=== PATIENT | male | born 1980 | race African-American/Black ===

== ENCOUNTER 2022-04-04 09:12 | Outpatient (REF) | payer OTHER, SELFPAY ==
[2022-04-04 11:15] LABS: MANUAL DIFF FLAG NO
[2022-04-04 11:21] LABS: Appearance Urine Clear; Color Urine Yellow; Glucose Urine UA Negative (Negative); Leukocyte Esterase Urine Negative (Negative); Nitrite Urine Negative (Negative); Specific Gravity - Urine 1.025 (1.005-1.025); Urine Blood Negative (Negative); Urine Ketones Negative (Negative); Urine Protein Negative (Neg-Trace)
[2022-04-04 11:33] LABS: Basophils Percent Auto 0.5 % (0-2); Eosinophils Absolute Auto 0.7 X10*3/uL (0.0-0.4); Eosinophils Percent Auto 12.8 % (0-4); Hematocrit 41.2 % (42.0-52.0); Hemoglobin 13.4 g/dl (14.0-18.0); Imm Gran Abs Auto 0.02 X10*3/uL (0.00-0.03); Imm Gran Pct Auto 0.3 % (0.0-0.4); Lymphocytes Absolute Auto 1.7 X10*3/uL (1.2-4.9); Lymphocytes Percent Auto 29.2 % (20-40); Mean Corpuscular HGB Conc 32.5 g/dl (31.0-36.0); Mean Corpuscular Hemoglobin 29.2 pg (27.0-33.0); Mean Corpuscular Volume 89.8 fL (80.0-98.0); Monocytes Absolute Auto 0.5 X10*3/uL (0.1-1.2); Monocytes Percent Auto 8.2 % (2-11); Neutrophils Absolute Auto 2.8 x10*3/uL (2.0-8.3); Platelet Count 220 X10*3/uL (160-400); Red Blood Count 4.59 X10*6/uL (4.60-5.80); Red Cell Distribution Width 12.5 % (11.0-16.0); White Blood Count 5.7 X10*3/uL (4.8-10.8)
[2022-04-04 12:26] LABS: Creatinine Urine 158.57 mg/dL; Microalbum/Creatinine Ratio Ur 6.3 ug/mg cr
[2022-04-04 13:05] LABS: Alanine Aminotransferase 15 U/L (0-40); Albumin Level 4.1 g/dL (3.5-5.0); Alkaline Phosphatase 50 U/L (39-117); Anion Gap 6 (12-20); Aspartate Amino Transferase 21 U/L (5-37); Bilirubin Total 0.5 mg/dL (0.0-1.0); Blood Urea Nitrogen 16 mg/dL (9-16); Calcium 9.2 mg/dL (8.4-10.2); Carbon Dioxide 28 mmol/L (22-29); Chloride 111 mmol/L (96-108); Cholesterol 157 mg/dL; Estimated Glomerular Filt Rate > 60; Glucose Fasting 89 mg/dL (60-99); HDL Cholesterol 46 mg/dL; LDL Cholesterol Calculated 96 mg/dl; Sodium 141 mmol/L (135-145); Total Protein 7.1 g/dL (6.5-8.0); Triglycerides 77 mg/dL
[2022-04-04 13:19] LABS: Prostate Specific Antigen Scr 0.53 ng/mL (<0.05-4.0); TSH reflex Free T4 0.51 uIU/mL (0.32-4.0)
== END 2022-04-04 09:13 | disposition home or self-care (01) ==
LOC: HO.WFDLDS 09:12
PROVIDERS: Visit Provider Family Medicine
DX: Z00.00 Encounter for general adult medical examination without abnormal findings (principal); I10 Essential (primary) hypertension; Z12.5 Encounter for screening for malignant neoplasm of prostate
CPT/HCPCS: 36415; 80053; 80061; 81003; 82043; 84153; 84443; 85025

== ENCOUNTER 2022-05-26 11:23 | Outpatient (REF) | payer OTHER, SELFPAY ==
[2022-05-26 14:38] LABS: Influenza A PCR NEGATIVE (Negative); Influenza B PCR NEGATIVE (Negative); Resp Syncy Virus RNA Qual PCR NEGATIVE (Negative); SARS COV2 PCR INHOUSE NEGATIVE (Negative)
== END 2022-05-26 11:24 | disposition home or self-care (01) ==
LOC: HO.LAB 11:23
PROVIDERS: Visit Provider Family Medicine
DX: Z20.822 Contact with and (suspected) exposure to COVID-19 (principal); R07.89 Other chest pain; R09.89 Other specified symptoms and signs involving the circulatory and respiratory systems
CPT/HCPCS: 0241U

== ENCOUNTER 2022-06-26 12:59 | Outpatient (RCR) | payer OTHER, SELFPAY ==
[2022-06-26 13:05] VITALS: BP 105/59; PULSE 71
--- NOTE | 2022-06-26 13:55 | MHC.PT.EP ---
[facility] [place] Office [place] Office [place] Office [address] [phone] F: [phone] F: [phone] F: [phone] F: [phone] Physical Therapy Plan of Care Date of Evaluation: Date of Surgery: NA Diagnosis: Dizziness and giddiness Assessment: Vineet is a 41 year old male who is referred to PT for dizziness and giddiness . He reports of having sudden onset of dizziness this morning when he was standing in the kitchen. This was preceded by URIOSETGUI. He has had 2 episodes of dizziness in the past which resolved spontaneously in 4 days. On PT examination he presents with intact saccades, smooth pursuit, visual tracking, DVA and negative head thrust. He was negative for positional vertigo in B fontana pikes and B roll test. He presented with good static and dynamic balance. 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 He lives with his and is independent with all ADLS but today due to dizziness and his is helping him. He currently does not present with any symptoms of vestibular dysfunction. Dizziness could be due to other source. PT therefore is not indicated at this time. Frequency and Duration: The patient will be seen Short Term Goals: Thermodynamics Professor Goals: Treatment Plan: Modalities to reduce pain, spasms and effusion. Manual therapy to restore motion and function. Therapeutic exercise to improve strength and flexibility. Neuromuscular re-education for posture and balance. Therapeutic activities to return to functional activities of daily living. Electronically signed by: Stephanie Montoya PT DPT Please sign and return to therapist. Thank you for your referral.
--- NOTE | 2022-08-14 08:11 | MHC.PT.DC ---
[facility] [place] Office [place] Office [place] Office [address] Rosa [address] [phone] F: [phone] F: [phone] F: [phone] F: [phone] Physical Therapy Discharge Report Diagnosis: Dizziness and giddiness Date of Surgery: NA Date of Evaluation: 06/26/22 Date of Discharge: 08/14/22 Treatments to Date: 1 Cancellations to Date: 0 No Shows to Date: Discharge Status: Discharge Summary: Vineet presented with no symptoms of vestibular dysfunction in over a month. He is therefore being d/c from PT Electronically signed by: Stephanie Montoya PT DPT Please sign and return to therapist. Thank you for your referral.
== END 2022-08-14 08:11 | disposition home or self-care (01) ==
LOC: HO.PT 12:59
PROVIDERS: PCP Internal Medicine; Visit Provider Internal Medicine
DX: R42 Dizziness and giddiness (principal)
CPT/HCPCS: 97112; 97161

== ENCOUNTER 2022-07-11 15:58 | Outpatient (REF) | payer OTHER, SELFPAY ==
--- NOTE | ~2022-07-11 | US_ITS ---
EXAMINATION: US SCROTUM CLINICAL INFORMATION: Palpable mass in the left hemiscrotum. COMPARISON: None available. TECHNIQUE: A sonogram of the scrotum was performed assessing gan-scale appearance and color Doppler flow. Spectral Doppler analysis of the arterial and venous flow were performed in the testes bilaterally. FINDINGS: RIGHT: Right testicle measures 4.1 x 2.2 x 2.8 cm, volume 14 mL. There is a 2nd right testicle lateral to this that measures 2.2 x 2 x 2.2 cm. No focal testicular parenchymal lesions are visualized. Spectral Doppler analysis of the arterial and venous flow is normal in the right testis. Right epididymal head is normal in size. No right hydrocele or varicocele is seen. Right epididymal Doppler flow is normal. LEFT: Left testicle measures 4.5 x 2.4 x 2.7 cm, volume 15 mL. There is a testicular small cyst measuring 1 x 1 x 2 mm. There are 2 additional smaller testicles laterally measuring 1.1 x 0.9 x 1 cm and superiorly measuring 1.2 x 1.4 x 1.4 cm. No other focal testicular parenchymal lesions are visualized. Spectral Doppler analysis of the arterial and venous flow is normal in the left testis. Left epididymal head is normal in size. No left hydrocele or varicocele is seen. Left epididymal Doppler flow is normal. US/US scrotum IMPRESSION: Polyorchidism, one additional testicle on the right and 2 additional testicles on the left. Small 1 x 2 mm cyst in the largest left testicle.
== END 2022-07-11 15:59 | disposition home or self-care (01) ==
LOC: HO.US 15:58
PROVIDERS: PCP Internal Medicine; Visit Provider Family Medicine
DX: N50.89 Other specified disorders of the male genital organs (principal)
CPT/HCPCS: 76870

== ENCOUNTER → 2022-08-22 13:01 | Outpatient (BNVA) | payer OTHER, SELFPAY | PROVIDERS: PCP Family Medicine; Visit Provider Nurse Practitioner Family | DX: L72.3 Sebaceous cyst (principal) | CPT/HCPCS: 99202 ==

== ENCOUNTER 2022-10-27 09:13 | Day surgery (SDC) | payer OTHER, SELFPAY ==
[2022-10-23 09:29] VITALS: BMI 35.9
--- NOTE | 2022-10-24 09:32 | HO.ANESPROP2 ---
Documented by User: Vane Martin NP 10/24/22 09:32 HPI - Anesthesia Eval Consult details Narrative: 41yo M for Excision Scrotal Sebaceous Cyst (no side,all over) PMFSH Active Problems Active Problems: All Active Problems (Updated 08/22/22 @ 13:53 by ALEX Langston) Scrotal sebaceous cyst (Acute) Scrotal mass (Acute) Asthma exacerbation (Acute) Chest tightness (Acute) Seasonal allergies (Acute) Physical exam, annual (Acute) Ear discomfort (Acute) Low back pain (Acute) Vertigo (Acute) Asthma (Acute) Laboratory exam ordered as part of routine general medical examination (Acute) Past Medical History Medical History Asthma Vertigo Family History Family History Father Heart disease No family history of mental disorder Mother Heart disease Diabetes Hypertension Seizures No family history of mental disorder Surgical History Surgical History (Updated 10/27/22 @ 09:36 by Nadia Craven) History of surgery of head History of testicular surgery Social History Social History Household Members: Spouse and Family Housing: Apartment Alcohol intake: current Alcohol intake frequency: holidays/special occasions only Patient Tobacco Use Status: Never used Tobacco e-Cigarette/Vaping Use: Never Used Use of substances other than those prescribed or required for medical reasons: No Are you DNR?: No Advance Directives: No Advance Directives Information Provided: Yes Current occupational status: employed 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 Meds Allergies Allergy/AdvReac Type Severity Reaction Status Date / Time aspirin Allergy Mild rash, Verified 10/27/22 09:26 swelling Home Medications Medication Instructions Recorded Confirmed Last Taken Type meclizine 25 mg tablet 25 mg PO BID-TID PRN dizziness 10/23/22 10/27/22 Unknown History Exam Exam Date and Time: October 24, 2022 0932 Height,Weight and Vital Signs: Height 5 ft 10 in Weight 113.398 kg Assessment and Plan Assessment Anesthesia Assessment: Chart Reviewed Documented by User: Salazar Younger MD 10/27/22 10:08 [facility] Past Medical History Medical History Asthma Vertigo Family History Family History Father Heart disease No family history of mental disorder Mother Heart disease Diabetes Hypertension Seizures No family history of mental disorder Family history of problems with anesthesia: No Surgical History Surgical History (Updated 10/27/22 @ 09:36 by Nadia Craven) History of surgery of head History of testicular surgery History of Problems with Anesthesia: No Social History Social History Household Members: Spouse and Family Housing: Apartment Alcohol intake: current Alcohol intake frequency: holidays/special occasions only Patient Tobacco Use Status: Never used Tobacco e-Cigarette/Vaping Use: Never Used Use of substances other than those prescribed or required for medical reasons: No Are you DNR?: No Advance Directives: No Advance Directives Information Provided: Yes Current occupational status: employed 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 Meds Allergies Allergy/AdvReac Type Severity Reaction Status Date / Time aspirin Allergy Mild rash, Verified 10/27/22 09:26 swelling Home Medications Medication Instructions Recorded Confirmed Last Taken Type meclizine 25 mg tablet 25 mg PO BID-TID PRN dizziness 10/23/22 10/27/22 Unknown History Exam Airway Mallampati Class: II TM Dist: >3cm Neck ROM: Full Heart: rrr Lungs: cta Assessment and Plan Assessment Anesthesia Assessment: Anesthesia Plan Discussed Final Anesthetic Review Family History of Problems with Anesthesia: No History of Problems with Anesthesia: No NPO: Yes ASA Class: II Final Preanesthetic Review: No Changes in Pt Med Stat, Meds/Allgs Chart Reviewed, Consent Obtained/Reviewed and Anes Risks/Benef Reviewed Patient Risk: Low Procedure Risk: Low Anesthetic Plan Anesthetic Plan: GA Disposition: Standard PACU
[2022-10-27] VITALS (8 sets, daily range): BP systolic 109–124; BP diastolic 75–92; PULSE 53–63; RESP 16; TEMP 36.1–36.8; O2SAT 97–99; BMI 35.2
[2022-10-27] MEDS: Lactated Ringers 1,000 ML 100 ML IVCONT (10:12)
--- NOTE | 2022-10-27 10:56 | MHC.SHP ---
Pre-Procedural Eval Section A Date of Service: 10/27/22 The patient is an INPATIENT: No Changes since office visit: No Cold of Flu in the past 2 weeks, No New Medical Problems, No Changes in Medication and No Patient answered all questions The History & Physical has been completed within 30 days and I have reviewed it.: Yes Section B Chief Complaint: Sebaceous cyst Details of Present Illness: multiple scrotal sebaceous cysts Relevant Family History (Specify if Yes): No Relevant Social History: None Present Medications: None Medical History: No relevant PMH History of Previous Operations: No relevant previous surgery Allergies: Allergies Allergy/AdvReac Type Severity Reaction Status Date / Time aspirin Allergy Mild rash, Verified 10/27/22 09:26 swelling Review of Systems Sugical H&P ROS: Negative: Constitution, Cardiovascular, Respiratory, Neurological, Psychiatric, Hem-Onc, Allergic/Immunologic, Gastrointestinal, Genitourinary, Musculoskeletal, Integumentary, Endocrine and Eyes/Ears/Nose/Throat Exam Surgical H&P Exam: Normal: HEENT, Normal: Heart, Normal: Lungs, Normal: Extremities, Normal: Abdomen, Normal: Skin and Normal: Neurological Plan Diagnosis/Plan: Unchanged ( sharp excision and use of laser to remove multiple scrotal sebaceous cysts) I have reviewed the history and physical and performed a pertinent physical examination on my patient. No changes have occurred unless specified. Time Spent With Patient Time: Total time managing care of this patient today ____ minutes.
[2022-10-27] MEDS: Acetaminophen 325 MG TABLET 975 MG PO (12:44)
--- NOTE | 2022-10-27 14:20 | W.PM.OPN ---
Operative Note Operative Note Date of Service: 10/27/22 Narrative: PreOperative Diagnosis: Multiple scrotal sebaceous cysts Post Operative Diagnosis: multiple scrotal sebaceous cysts Procedure: laser excision of multiple scrotal sebaceous cysts 10 cysts total measuring up to 2 cm Surgeon: Dr Darwin Tan Anesthesia: general Indications for procedure: long-term use of male genital shaving. As result there were a significant number of subcutaneous scrotal sebaceous cysts. Three of these measured approximately 1.5-2 cm in diameter. Seven others were identified is measuring greater than 5 mm. There were numerous small cysts and these were not addressed. Procedure: After informed consent was verified the patient was brought to the operating room and placed in a supine position. Anesthesia was administered per protocol. The patient was prepped and draped in a sterile fashion. Safety pause time-out was performed. Antibiotics being given. Using a CO2 laser the 7 small less than 5 mm sebaceous cysts were erupted. Sebaceous material was removed. The sebaceous cyst sac was inverted and using the CO2 laser was amputated at its base. This was performed on all 7 small cysts measuring 5 mm in size. For the 3 larger cysts we were able to use the CO2 laser to erupt the skin and then widened the skin using a snap before removing all material and then inverting the sac before removing this with the CO2 laser. When complete antiniotic cream was placed on scrotum Pathology: sebaceous cyst sac Drains:
== END 2022-10-27 13:30 | disposition home or self-care (01) ==
PROVIDERS: PCP Internal Medicine; Visit Provider Urology
PROC: (CPT 11421; principal; 2022-10-27 10:50)
DX: L72.3 Sebaceous cyst (principal); L72.0 Epidermal cyst; N50.819 Testicular pain, unspecified; Q55.2 Other and unspecified congenital malformations of testis and scrotum; J45.909 Unspecified asthma, uncomplicated; Z79.51 Long term (current) use of inhaled steroids; Z88.8 Allergy status to other drugs, medicaments and biological substances; Z98.890 Other specified postprocedural states
CPT/HCPCS: 11421 ×2; 11422; 11420 ×7; 88304; J0690; J1885; J2795; J3010

== ENCOUNTER → 2022-10-27 09:13 | Outpatient (BNV) | payer OTHER, SELFPAY | PROVIDERS: PCP Internal Medicine; Visit Provider Urology | DX: L72.3 Sebaceous cyst (principal) | CPT/HCPCS: 17110 ==

== ENCOUNTER 2022-11-21 15:29 | Outpatient (AMB) | payer OTHER, SELFPAY ==
[2022-11-21 15:46] VITALS: BP 102/72; PULSE 64; RESP 12; TEMP 36.4; O2SAT 98; BMI 35.5
--- NOTE | 2022-11-21 15:46 | A.OFFPC_ITS ---
Vital Signs 11/21/22 15:46 Height 5 ft 10 in Weight 247 lb 6 oz BMI 35.5 BP 102/72 Blood Pressure Location Lt brachial Position Sitting Respiration 12 Pulse 64 Pulse Source Pulse Oximeter Temp 97.6 F Temp Source Temporal Artery Scan Pulse Oximetry (%) 98 Oxygen Delivery Method Room Air 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: Right Foot Pain/ Swollen Intake Note: Patient's states that patient woke up with a slight pain, and after patient came home from work it was like he couldnt even walk on it. Patient states that the pain is coming from right big toe. Pain is on the side of the toe, under the toe. 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 Accompanied by: Spouse Allergies aspirin Allergy (Mild, Verified 11/21/22 16:09) rash, swelling Medication List - Last Reconciled 11/21/22 by Roby Cloud CNP albuterol sulfate 90 mcg/actuation 2 puffs inhalation Q6H PRN fluticasone propionate 50 mcg/actuation (Flonase Allergy Relief) 1 spray intranasal Q12H 30 days meclizine 25 mg PO BID-TID PRN Tobacco use date assessed: 07/01/22 Dental Screening Dental Screen Date: 11/21/22 Did you have a dental visit in the last 12 months?: Yes Did you have a dental problem in the last 6 months where you did not have access to dental care?: No Was dental information given to patient?: Patient has dentist HPI HPI Comments History of Present Illness Details 41-year-old male, accompanied by his wif lyn, presents with complaints of pain underneath his right great toe. His symptoms started yesterday morning and have progressively gotten worse. He has been unable to bear weight to the right foot since returning from work yesterday afternoon. He denies fall, injury, or trauma. He notes he took some Tylenol yesterday with minimal relief. He has not taking any pain remedy today. He denies fever, chills, body aches, fatigue, weakness. [facility] Medical History (Updated 11/21/22 @ 16:24 by Roby Cloud CNP) Pain of right great toe Asthma Vertigo Surgical History History of surgery of head History of testicular surgery Family History Father Heart disease No family history of mental disorder Mother Heart disease Diabetes Hypertension Seizures No family history of mental disorder Social History Household Members: Spouse and Family Housing: Apartment Alcohol intake: current Alcohol intake frequency: holidays/special occasions only Patient Tobacco Use Status: Never used Tobacco e-Cigarette/Vaping Use: Never Used Current occupational status: employed 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 Norris Shah, Oksana Ventura, Anand Lakhani and colleagues, with an educational romario from [employer]. Review of Systems Const Details: Const Denies chills, Denies fatigue, Denies fever(s), Denies headache(s) and Denies weakness ENT Denies dizziness and Denies headache(s) Card Denies chest pain, Denies lightheadedness, Denies dyspnea and Denies other (Palpitations) Resp Denies cough, Denies dyspnea, Denies wheezing and Denies other ( shortness of breath) GI Denies abdominal pain, Denies melena, Denies hematochezia, Denies change in bowel habits, Denies dyspepsia and Denies nausea Denies hematuria and Denies dysuria Musc Reports as per HPI Skin/Breast Denies rash, Denies unusual bruising and Denies wounds Neuro Reports abnormal gait, Denies dizziness, Denies headache(s), Denies memory loss, Denies numbness, Denies Sensory deficit (Neuro), Denies tingling and Denies weakness Psych Denies anxiety, Denies depression, Denies memory loss Endo Denies cold intolerance, Denies fatigue, Denies heat intolerance, Denies polydipsia and Denies polyuria Aller/Immun Denies wheezing Physical exam (Primary Care) Vital Signs: Last Vital Signs Temp 97.6 F 11/21/22 15:46 Pulse 64 11/21/22 15:46 Resp 12 11/21/22 15:46 BP 102/72 11/21/22 15:46 Pulse Ox 98 11/21/22 15:46 Oxygen Delivery Method Room Air 11/21/22 15:46 BMI result Body Mass Index 35.5 Tobacco/Smoking Status: Tobacco use Status Tobacco use date assessed 07/01/22 11/21/22 15:56 Patient Tobacco Use Status Never used Tobacco 11/21/22 15:56 e-Cigarette/Vaping Use Never Used 11/21/22 15:56 Thrive Assessment: Date of Thrive Assessment Date Thrive assessed 05/16/22 11/21/22 15:56 Const Other: General: no acute distress and well developed Nutritional Appearance: well nourished Orientation/consciousness: patient oriented x3 HENMT Head: Yes normocephalic and Yes atraumatic Eyes General: appearance normal, both eyes and all related structures Pupils: Equal, round and reactive pupils present EOM: EOMs intact bilaterally Resp Effort & Inspection: normal respiratory effort Auscultation: clear to auscultation bilaterally Cardio Rate: regular rate Rhythm: regular rhythm Heart sounds: S1 normal heart sound present, S2 normal heart sound present, no gallops, no murmurs and no rubs GI Palpation (GI): No Abdominal aortic bruit present, Soft to palpation, nontender, No hepatosplenomegaly present and No Rebound tenderness present Auscultation: normal bowel sounds General: Yes no CVA tenderness Back/Spine/Pelvis Back: no CVA tenderness Cervical Spine: cervical ROM normal and No Cervical spine tenderness Thoracic/Lumbar Spine: thoraco-lumbar ROM normal, No pain with thoraco-lumbar ROM, No thoracic spinal tenderness and No lumbar spinal tenderness Extrem General: Yes normal to inspection, and No calf tenderness Mild erythema and edema noted underneath the right great toe medially, tenderness to palpation, skin is intact Skin General: warm and dry. Normal skin color. Normal skin turgor Lesions: no lesions Rashes: no rashes Trauma: no lacerations or abrasions Wounds: no wounds Nails: normal Neuro General: patient oriented x3, gait unsteady and no focal neuro deficit Cranial nerves: Yes Equal, round and reactive pupils present Cognition (Neuro): normal cognition Gait exam (Neuro): Normal gait present Sensory Exam: No Sensory deficit (Neuro) Psych Appearance: grossly normal Affect: normal affect Attitude: cooperative Thought process: Normal thought process present Assessment and Plan Assessment & Plan (1) Pain of right great toe: Code(s): M79.674 - Pain in right toe(s) Plan: Mild erythema and edema noted underneath the right great toe medially, tenderness to palpation, skin is intact Likely gout, although possible bone spur Prednisone ordered. Take as prescribed Cold compresses encouraged CBC and sed rate ordered to rule out inflammation and infection Uric acid ordered Follow-up with worsening or new symptoms Verbalized understanding and agreed with treatment plan. Orders: Orders Complete Blood Count Auto Diff Today M79.674 - Pain in right toe(s) Erythrocyte Sedimentation Rate Today M79.674 - Pain in right toe(s) Medications: New prednisone 40 mg (2 x 20 mg) PO DAILY 10 tabs 0RF 5 days Coding Level of Care Code Est Pt Level 3 (00958) Diagnoses Pain of right great toe M79.674
== END 2022-11-21 16:23 | disposition home or self-care (01) ==
PROVIDERS: PCP Internal Medicine; Visit Provider Nurse Practitioner Family
DX: M79.674 Pain in right toe(s) (principal)
CPT/HCPCS: 99213

== ENCOUNTER 2022-11-22 08:11 | Outpatient (REF) | payer OTHER, SELFPAY ==
[2022-11-22 11:28] LABS: MANUAL DIFF FLAG NO
[2022-11-22 12:02] LABS: Basophils Percent Auto 0.1 % (0-2); Eosinophils Percent Auto 0.1 % (0-4); Hematocrit 41.3 % (42.0-52.0); Hemoglobin 13.7 g/dl (14.0-18.0); Imm Gran Abs Auto 0.03 X10*3/uL (0.00-0.03); Imm Gran Pct Auto 0.3 % (0.0-0.4); Lymphocytes Absolute Auto 0.9 X10*3/uL (1.2-4.9); Lymphocytes Percent Auto 10.1 % (20-40); Mean Corpuscular HGB Conc 33.2 g/dl (31.0-36.0); Mean Corpuscular Hemoglobin 29.7 pg (27.0-33.0); Mean Corpuscular Volume 89.4 fL (80.0-98.0); Mean Platelet Volume 11.8 fL (9.4-12.4); Monocytes Absolute Auto 0.3 X10*3/uL (0.1-1.2); Monocytes Percent Auto 3.2 % (2-11); Neutrophils Absolute Auto 7.9 x10*3/uL (2.0-8.3); Neutrophils Percent Auto 86.2 % (45-73); Platelet Count 242 X10*3/uL (160-400); Red Blood Count 4.62 X10*6/uL (4.60-5.80); Red Cell Distribution Width 12.5 % (11.0-16.0); White Blood Count 9.1 X10*3/uL (4.8-10.8)
[2022-11-22 12:13] LABS: Erythrocyte Sedimentation Rate 12 MM/HR (0-15)
[2022-11-22 12:18] LABS: Uric Acid 4.5 mg/dL (3.4-7.0)
== END 2022-11-22 08:12 | disposition home or self-care (01) ==
LOC: HO.HMGCLDS 08:11
PROVIDERS: PCP Internal Medicine; Visit Provider Nurse Practitioner Family
DX: M79.674 Pain in right toe(s) (principal)
CPT/HCPCS: 36415; 84550; 85025; 85652

== ENCOUNTER 2022-11-27 13:40 | Outpatient (AMB) | payer OTHER, SELFPAY ==
--- NOTE | 2022-11-27 14:08 | MHC.OFFVIS ---
Intake 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: 4 week (cysts removal) Intake Note: Patient is present for follow up removal multiple sebaceous cysts Urology Medications: none Blood Thinner: none Base Filler Operator Required: Yes Base Filler Operator Name: PACO Accompanied by: Self / Same As Patient Allergies aspirin Allergy (Mild, Verified 11/30/22 12:43) rash, swelling Medication List - Last Reconciled 11/30/22 by ALEX Langston albuterol sulfate 90 mcg/actuation 2 puffs inhalation Q6H PRN fluticasone propionate 50 mcg/actuation (Flonase Allergy Relief) 1 spray intranasal Q12H 30 days meclizine 25 mg PO BID-TID PRN HPI HPI Comments History of Present Illness Details Vineet is a very pleasant 41-year-old [place]-speaking male patient of Dr. Mccord. He has a past medical history of asthma in vertigo. He presents to the office today for follow-up of his recent surgical procedure with Dr. Tan. He is status post multiple scrotal sebaceous cysts removal via C02 laser approximately 2 months ago. When asked he reports to be doing and feeling well. In assessment of the patient today scrotum appears healed with no open areas, drainage, or cyst noted. When asked he reports hurts no postop complications. He denies any urological issues or concerns at this time. When asked he denies urinary urgency, urinary frequency, incontinence, nocturia, hematuria, dysuria, foul smelling urine, changes to urinary stream, flank pain, fever, and or chills. He is happy with his current voiding parameters. [facility] Medical History Pain of right great toe Asthma Vertigo Surgical History History of surgery of head History of testicular surgery Family History Father Heart disease No family history of mental disorder Mother Heart disease Diabetes Hypertension Seizures No family history of mental disorder Social History Household Members: Spouse and Family Housing: Apartment Alcohol intake: current Alcohol intake frequency: holidays/special occasions only Patient Tobacco Use Status: Never used Tobacco e-Cigarette/Vaping Use: Never Used Current occupational status: employed 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 Cognitive needs: No Hearing needs: No Vision needs: No Review of Systems Const All systems reviewed & are unremarkable except as noted in HPI and below Reports no additional complaints Eyes Reports no additional complaints ENT Reports no additional complaints Card Reports no additional complaints Resp Reports no additional complaints GI Reports no additional complaints Reports as per HPI Musc Reports no additional complaints Neuro Reports no additional complaints Psych Reports no additional complaints Endo Reports no additional complaints Aller/Immun Reports as per HPI Physical Exam Const General: cooperative, healthy appearing, comfortable, no acute distress, well developed, alert and awake Orientation/consciousness: patient oriented x3 Limitations: no limitations HEENT Head: Yes normal to inspection, Yes normocephalic and Yes atraumatic Ears: hearing grossly normal bilaterally Eyes General: appearance normal, both eyes and all related structures Neck Neck: Yes normal visual inspection and Yes trachea midline Chest Chest palpation & inspection: normal inspection of the chest Resp Effort & Inspection: normal respiratory effort and able to speak in complete sentences Cardio Rate: regular rate GI Inspection: Yes normal to inspection General: Yes no CVA tenderness Penis: normal penis and uncircumcised Meatus: meatus normal Scrotum: scrotum normal and other Testes: Testes normal Back/Spine/Pelvis Back: no CVA tenderness Skin General skin exam: no rashes or lesions noted Neuro General: patient oriented x3 Extrem General: Yes normal to inspection Psych Appearance: grossly normal and well kempt Mental Status: mental status grossly normal Speech and movement: Normal speech and movement present and Clear speech present Affect: normal affect Attitude: cooperative Thought process: Normal thought process present Thought content: Normal thought content present Insight: Good insight present (Psych) Judgement: Good judgement present (Psych) Results AMB Urinalysis, Automated UA Leukoctes 0 Rosa Maria/uL Last Edit by [employer] on 11/27/22 14:17 UA Nitrite Last Edit by [employer] on 11/27/22 14:17 UA Urobilinogen 0.2 mg/dL Last Edit by [employer] on 11/27/22 14:17 UA Protein 15 mg/dL Last Edit by [employer] on 11/27/22 14:17 UA pH 6.0 Last Edit by [employer] on 11/27/22 14:17 UA Blood 0 Severo/uL Last Edit by Stefanie Christylashell on 11/27/22 14:17 UA Specific Summit 1.030 Last Edit by Stefanie Christylashell on 11/27/22 14:17 UA Ketone Negative Last Edit by Stefanie Anderson on 11/27/22 14:17 UA Bilirubin 0 mg/dL Last Edit by Stefanie Anderson on 11/27/22 14:17 UA Glucose 0 mg/dL Last Edit by Stefanie Anderson on 11/27/22 14:17 Results Reviewed Results Reviewed: Laboratory Last Values Urine pH (Auto) 6.0 11/27/22 14:09 Specific [place] (Auto) 1.030 11/27/22 14:09 Urine Protein (Auto) 15 mg/dL 11/27/22 14:09 Glucose (UA)(Auto) 0 mg/dL 11/27/22 14:09 Urine Ketones (Auto) Negative 11/27/22 14:09 Urine Blood (Auto) 0 Severo/uL 11/27/22 14:09 Urine Bilirubin (Auto) 0 mg/dL 11/27/22 14:09 Urine Urobilinogen (Auto) 0.2 mg/dL 11/27/22 14:09 Leukocyte Esterase (Auto) 0 Rosa Maria/uL 11/27/22 14:09 Assessment & Plan Assessment & Plan (1) Scrotal sebaceous cyst: Code(s): L72.3 - Sebaceous cyst Plan In office urinalysis results reviewed with the patient today; as noted above. Scrotum appears well healed and with no open areas, drainage, or sebaceous cysts noted. Patient denies any urological issues or concerns at this time. He is happy with his current voiding parameters. Follow-up as needed Orders: Orders AMB Urinalysis Automated 11/27/22 Z13.9 - Encounter for screening, unspecified Patient Instructions: The patient had an opportunity to ask questions regarding the treatment plan. All questions were answered. Physical exam, labs, and imaging were discussed and reviewed in detail. As well as risks, benefits, and discussion of treatment choices. No major barriers to understanding were identified. The patient expressed understanding and agreement with the above treatment plan. The patient was made aware they should contact our office by phone for worsening of their current condition, the appearance of new symptoms, or with any questions or concerns. Compliance is encouraged with any medications and follow up testing that is ordered. It is a privilege to be allowed the opportunity to participate in? your urological care.? Again, if you have any questions or concerns If you have any questions or concerns please do not hesitate to contact me. The office is [phone]. This note is constructed using voice recognition software. While every effort has been made to ensure accuracy cinnamon grinder errors may have been included. Yours sincerely, ALEX Langston Coding Level of Care Code Est Pt Level 3 (51807) Diagnoses Scrotal sebaceous cyst L72.3
== END 2022-11-27 14:27 | disposition home or self-care (01) ==
PROVIDERS: PCP Family Medicine; Visit Provider Nurse Practitioner Family
DX: L72.3 Sebaceous cyst (principal)
CPT/HCPCS: 99213

== ENCOUNTER → 2022-11-27 13:40 | Outpatient (BNVA) | payer OTHER, SELFPAY | PROVIDERS: PCP Family Medicine; Visit Provider Nurse Practitioner Family | DX: Z48.89 Encounter for other specified surgical aftercare (principal) | CPT/HCPCS: 81003; 99212 ==

== ENCOUNTER 2022-12-23 08:32 | Outpatient (AMB) | payer OTHER, SELFPAY ==
--- NOTE | 2022-12-23 09:43 | MHC.OFFWIV ---
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 Patient has had a cough and fever shortness of breath x2 days. Denies chest pain nausea vomiting abdominal pain. [facility] Medical History Pain of right great toe Asthma Vertigo Surgical History History of surgery of head History of testicular surgery Family History Father Heart disease No family history of mental disorder Mother Heart disease Diabetes Hypertension Seizures No family history of mental disorder Social History Household Members: Spouse and Family Housing: Apartment Alcohol intake: current Alcohol intake frequency: holidays/special occasions only Patient Tobacco Use Status: Never used Tobacco e-Cigarette/Vaping Use: Never Used Current occupational status: employed 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 Cognitive needs: No Hearing needs: No Vision needs: No Review of Systems Const Reports body aches and Reports fever(s) Card Reports dyspnea Resp Reports cough and Reports dyspnea Physical Exam Vital Signs: Last Vital Signs Temp 98.4 F 12/23/22 09:44 Pulse 76 12/23/22 09:44 BP 112/74 12/23/22 09:44 Pulse Ox 98 12/23/22 09:44 BMI result Body Mass Index 35.9 Const General: healthy appearing, comfortable, no acute distress and alert Orientation/consciousness: patient oriented x3 Limitations: no limitations HEENT Head: Yes normal to inspection Ears: hearing grossly normal bilaterally Resp Effort & Inspection: normal respiratory effort, able to speak in complete sentences, no audible wheezes and Actively coughing Auscultation: clear to auscultation bilaterally Cardio Other: No lower extremity edema Rate: regular rate Skin General skin exam: no rashes or lesions noted Neuro General: patient oriented x3 Extrem General: Yes normal to inspection Assessment & Plan Assessment & Plan (1) Viral illness: Code(s): B34.9 - Viral infection, unspecified Plan VSS on exam patient is alert oriented no acute distress exam was notable for lung sounds clear to auscultation bilaterally. No evidence of tachypnea no lower extremity edema. Cough was present. Given patient's condition considerations pneumonia versus bronchitis or other viral illness. Will Order chest x-ray COVID swab. Xray on my interpretation shows no acute pathology. Likely suffering from viral illness. Discharge instructions, follow up and treatment are discussed with patient in my usual fashion. Alternatives in treatment are also discussed. The patient will return for worsening symptoms or as needed. Advised that any labs/imaging ordered will be followed up on and contact made if further treatment needed. Counseled that patient's condition may require further evaluation and/or treatment. Symptoms of concern for worsening disorder discussed in detail in my customary manner. Patient does verbalize understanding of the plan, there are no apparent barriers to communication. The patient is given the opportunity to ask questions and have them answered to his/her satisfaction Orders: Orders XR chest 2V Today R06.02 - Shortness of breath BinaxNOW Covid-19 Ag Today R50.9 - Fever, unspecified Medications: New prednisone 40 mg (2 x 20 mg) PO DAILY 5 days 10 tabs 0RF Patient Instructions: You were seen and evaluated for your cold-like symptoms. We cannot say for sure at this time examination is reassuring. We believe is likely suffering from a viral URI. Recommend continued symptomatic treatment using saline rinses Tylenol Motrin as needed. You have been prescribed prednisone. You should return to clinic or the emergency department if you experience any new worsening symptoms such as chest pain, shortness of breath, nausea, vomiting, abdominal pain, or any concerning symptoms I mentioned above. Coding Level of Care Code New Pt Level 4 (68997) Diagnoses Viral illness B34.9
[2022-12-23 09:44] VITALS: BP 112/74; PULSE 76; TEMP 36.9; O2SAT 98; BMI 35.9
== END 2022-12-23 11:08 | disposition home or self-care (01) ==
PROVIDERS: PCP Family Medicine; Visit Provider Physician Assistant
DX: B34.9 Viral infection, unspecified (principal)
CPT/HCPCS: 99204

== ENCOUNTER 2022-12-23 10:28 | Outpatient (REF) | payer OTHER, SELFPAY ==
[2022-12-23 11:12] LABS: Binax Now Covid-19 Ag Negative (Negative)
[2022-12-23 11:13] LABS: Binax Internal Control QC Valid; Binax Performed by: HO.BONILM
== END 2022-12-23 10:29 | disposition home or self-care (01) ==
LOC: HO.HMGCX 10:28
PROVIDERS: PCP Family Medicine; Visit Provider Physician Assistant
DX: R06.02 Shortness of breath (principal); R50.9 Fever, unspecified
CPT/HCPCS: 71046; 87811; C9803

== ENCOUNTER 2023-02-17 16:32 | Outpatient (AMB) | payer OTHER, SELFPAY ==
--- NOTE | 2023-02-17 16:34 | MHC.PC.OV ---
Vital Signs 02/17/23 16:35 Height 5 ft 10 in Weight 251 lb BMI 36.0 BP 104/70 Blood Pressure Location Rt brachial Position Sitting Respiration 13 Pulse 67 Pulse Source Pulse Oximeter Temp 97.5 F Temp Source Temporal Artery Scan Pulse Oximetry (%) 99 Oxygen Delivery Method Room Air 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: Right Foot pain Intake Note: Patient has like a crescent shaped skin under his foot that is causing him pain when he walks and a little bit when foot is resting. Patient has been experiencing pain for the past 3 weeks but now it is worse. Patient states that he has not done anything to cause the pain. Gypsum Block Setter Required: Yes Gypsum Block Setter Name: Spouse Accompanied by: Spouse Allergies aspirin Allergy (Mild, Verified 02/17/23 16:45) rash, swelling Medication List - Last Reconciled 02/17/23 by Roby Cloud CNP albuterol sulfate 90 mcg/actuation 2 puffs inhalation Q6H PRN fluticasone propionate 50 mcg/actuation (Flonase Allergy Relief) 1 spray intranasal Q12H 30 days meclizine 25 mg PO BID-TID PRN Tobacco use date assessed: 07/01/22 Dental Screening Dental Screen Date: 02/17/23 Did you have a dental visit in the last 12 months?: Yes Did you have a dental problem in the last 6 months where you did not have access to dental care?: No Was dental information given to patient?: Patient has dentist HPI HPI Comments History of Present Illness Details 42-year-old Indonesian-speaking male, accompanied by his , presents with complaints of intermittent pain to the bottom of his right foot. His symptoms have been ongoing for the past 3 weeks and has progressively worsened. He denies fall, injury, or trauma. 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 [facility] Medical History Pain of right great toe Asthma Vertigo Surgical History History of surgery of head History of testicular surgery Family History Father Heart disease No family history of mental disorder Mother Heart disease Diabetes Hypertension Seizures No family history of mental disorder Social History Household Members: Spouse and Family Housing: Apartment Alcohol intake: current Alcohol intake frequency: holidays/special occasions only Patient Tobacco Use Status: Never used Tobacco e-Cigarette/Vaping Use: Never Used service: No Current occupational status: employed 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 Norris Shah, Oksana Ventura, Anand Lakhani and colleagues, with an educational romario from [employer]. Review of Systems Const Details: Const Denies chills, Denies fatigue, Denies fever(s), Denies headache(s) and Denies weakness ENT Denies dizziness and Denies headache(s) Card Denies chest pain, Denies lightheadedness, Denies dyspnea and Denies other (Palpitations) Resp Denies cough, Denies dyspnea, Denies wheezing and Denies other ( shortness of breath) GI Denies abdominal pain, Denies melena, Denies hematochezia, Denies change in bowel habits, Denies dyspepsia and Denies nausea Denies hematuria and Denies dysuria Musc Denies abnormal gait, Denies myalgias, Denies arthralgias, Denies numbness and Denies tingling Skin/Breast Reports as per HPI Neuro Denies abnormal gait, Denies dizziness, Denies headache(s), Denies memory loss, Denies numbness, Denies Sensory deficit (Neuro), Denies tingling and Denies weakness Psych Denies anxiety, Denies depression, Denies memory loss Endo Denies cold intolerance, Denies fatigue, Denies heat intolerance, Denies polydipsia and Denies polyuria Aller/Immun Denies wheezing Physical exam (Primary Care) Tobacco/Smoking Status: Tobacco use Status Tobacco use date assessed 07/01/22 12/23/22 08:29 Patient Tobacco Use Status Never used Tobacco 12/23/22 09:43 e-Cigarette/Vaping Use Never Used 12/23/22 08:29 Thrive Assessment: Date of Thrive Assessment Date Thrive assessed 05/16/22 12/23/22 08:29 Const Other: General: no acute distress and well developed Nutritional Appearance: well nourished Orientation/consciousness: patient oriented x3 [facility] Head: Yes normocephalic and Yes atraumatic Eyes General: appearance normal, both eyes and all related structures Pupils: Equal, round and reactive pupils present EOM: EOMs intact bilaterally Resp Effort & Inspection: normal respiratory effort Auscultation: clear to auscultation bilaterally Cardio Rate: regular rate Rhythm: regular rhythm Heart sounds: S1 normal heart sound present, S2 normal heart sound present, no gallops, no murmurs and no rubs GI Palpation (GI): No Abdominal aortic bruit present, Soft to palpation, nontender, No hepatosplenomegaly present and No Rebound tenderness present Auscultation: normal bowel sounds General: Yes no CVA tenderness Back/Spine/Pelvis Back: no CVA tenderness Cervical Spine: cervical ROM normal and No Cervical spine tenderness Thoracic/Lumbar Spine: thoraco-lumbar ROM normal, No pain with thoraco-lumbar ROM, No thoracic spinal tenderness and No lumbar spinal tenderness Extrem General: Yes normal to inspection, No edema and No calf tenderness Tenderness with palpation of the plantar aspect of the right foot Skin General: warm and dry. Normal skin color. Normal skin turgor Dry, callus skin to the plantar aspect of the right foot. Intact skin noted. 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 Poor fitted shoes or shoes without enough padding may also be a cause Advised to wear well-fitted shoes with padding Foot soaks with warm soapy water encouraged. Advised to apply moisturizer following foot soaks Naproxen as prescribed Return with worsening or new signs and symptoms Verbalized understanding and agreed with treatment plan Interpretation by the patient's per patient's preference Medications: New naproxen 500 mg PO BID PRN 60 tabs 0RF pain Coding Level of Care Code Est Pt Level 3 (06564) Diagnoses Callus of foot L84
[2023-02-17 16:35] VITALS: BP 104/70; PULSE 67; RESP 13; TEMP 36.4; O2SAT 99; BMI 36.0
== END 2023-02-17 16:58 | disposition home or self-care (01) ==
PROVIDERS: PCP Family Medicine; Visit Provider Nurse Practitioner Family
DX: L84 Corns and callosities (principal)
CPT/HCPCS: 99213

== ENCOUNTER 2023-10-07 08:05 | Outpatient (AMB) | payer OTHER, SELFPAY ==
[2023-10-07 08:30] VITALS: BP 130/78; PULSE 72; TEMP 36.9; O2SAT 98; BMI 36.0
--- NOTE | 2023-10-07 08:30 | MHC.OFFWIV ---
Intake Vital Signs 10/07/23 08:30 Height 5 ft 10 in Weight 251 lb BMI 36.0 BP 130/78 Blood Pressure Location Rt brachial Position Sitting Pulse 72 Pulse Source Pulse Oximeter Temp 98.5 F Temp Source Oral Pulse Oximetry (%) 98 Oxygen Delivery Method Room Air 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: EP Fever, cough, sore throat, body/head ache Intake Note: pt is here for fever, cough, sore throat with headache and bodyache Patient Tobacco Use Status: Never used Tobacco Allergies aspirin Allergy (Mild, Verified 10/07/23 08:30) rash, swelling Do you need a note to return to daycare/school/sports/work: Yes HPI HPI Comments History of Present Illness Details Patient is a 42-year-old male complaining of fever cough sore throat body aches and headaches x 2 days. He states he does have asthma and has been using his inhaler but it does not seem to help his cough. He also states he had a fever yesterday of 102 degrees F which did come down when she took some Tylenol. He states nobody at home is sick. Denies chest pain and ear pain [facility] Medical History Pain of right great toe Asthma Vertigo Surgical History History of surgery of head History of testicular surgery Family History Father Heart disease No family history of mental disorder Mother Heart disease Diabetes Hypertension Seizures No family history of mental disorder Social History Household Members: Spouse and Family Housing: Apartment Alcohol intake: current Alcohol intake frequency: holidays/special occasions only Patient Tobacco Use Status: Never used Tobacco e-Cigarette/Vaping Use: Never Used service: No Current occupational status: employed 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 Cognitive needs: No Hearing needs: No Vision needs: No Review of Systems Const All systems reviewed & are unremarkable except as noted in HPI and below Physical Exam Vital Signs: Last Vital Signs Temp 98.5 F 10/07/23 08:30 Pulse 72 10/07/23 08:30 BP 130/78 10/07/23 08:30 Pulse Ox 98 10/07/23 08:30 Oxygen Delivery Method Room Air 10/07/23 08:30 BMI result Body Mass Index 36.0 Const General: cooperative, healthy appearing, comfortable and no acute distress Orientation/consciousness: patient oriented x3 Limitations: no limitations HEENT Head: Yes normal to inspection Ears: hearing grossly normal bilaterally, external ears normal and TM's normal bilaterally General nose exam: Normal external nose present, Normal nares present and No nasal discharge present Face and sinus: Yes normal facial exam and Yes sinus tenderness Mouth: Normal oral and palatal mucosa present and moist mucous membranes Throat: Yes tonsils normal, Yes uvula midline and Yes posterior oropharynx abnormal (Erythema) Eyes General: appearance normal, both eyes and all related structures Neck Neck: Yes normal visual inspection Resp Effort & Inspection: normal respiratory effort, able to speak in complete sentences, Actively coughing, no respiratory distress, not tachypneic, no tripod positioning and no use of accessory muscles Auscultation: clear to auscultation bilaterally Cardio Rate: regular rate Rhythm: regular rhythm Heart sounds: normal S1 and S2 Skin General skin exam: no rashes or lesions noted Neuro General: patient oriented x3 Extrem General: Yes normal to inspection and Yes no clubbing, cyanosis or edema Assessment & Plan Assessment & Plan (1) Sinusitis: Code(s): J32.9 - Chronic sinusitis, unspecified Qualifiers: Sinusitis location: frontal Chronicity: acute Recurrence: non-recurrent Qualified Code(s): J01.10 - Acute frontal sinusitis, unspecified Plan: VSS, pt well appearing. Educated patient that this is likely viral and he should be using a Neti pot with saline nasal spray or Flonase and other medications to treat his symptoms. I did test for COVID, flu and RSV today. Advised he isolate until we have those results back. Plan see above Orders: Orders SARS-CoV2/FLU/RSV Today J06.9 - Acute upper respiratory infection, unspecified Coding Level of Care Code Est Pt Level 3 (67368) Diagnoses Acute non-recurrent frontal sinusitis J01.10 Sinusitis location: frontal Chronicity: acute Recurrence: non-recurrent
== END 2023-10-07 08:55 | disposition home or self-care (01) ==
PROVIDERS: PCP Family Medicine; Visit Provider Physician Assistant
DX: Z13.9 Encounter for screening, unspecified (principal); J01.10 Acute frontal sinusitis, unspecified
CPT/HCPCS: 87880; 99213

== ENCOUNTER 2023-10-07 08:48 | Outpatient (REF) | payer OTHER, SELFPAY ==
[2023-10-07 12:18] LABS: Influenza A PCR NEGATIVE (Negative); Influenza B PCR NEGATIVE (Negative); Resp Syncy Virus RNA Qual PCR NEGATIVE (Negative); SARS COV2 PCR INHOUSE POSITIVE (Negative)
== END 2023-10-07 08:49 | disposition home or self-care (01) ==
LOC: HO.LAB 08:48
PROVIDERS: Visit Provider Physician Assistant
DX: J06.9 Acute upper respiratory infection, unspecified (principal)
CPT/HCPCS: 0241U

== ENCOUNTER 2023-10-23 15:32 | Outpatient (AMB) | payer OTHER, SELFPAY ==
--- NOTE | 2023-10-23 15:40 | A.OFFVIS_ITS ---
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: Follow up /Scrotal sebaceous cyst Intake Note: Patient is present for follow up follow up Urology Medications: none Blood Thinner: none Packaging Materials Inspector Required: Yes Accompanied by: Unknown Allergies aspirin Allergy (Mild, Verified 10/23/23 16:04) rash, swelling Medication List - Last Reconciled 10/23/23 by ALEX Langston albuterol sulfate 90 mcg/actuation 2 puffs inhalation Q6H PRN fluticasone propionate 50 mcg/actuation (Flonase Allergy Relief) 1 spray intranasal Q12H 30 days HPI Comments Details: Vineet is a very pleasant 42-year-old [place]er-speaking male patient of Dr. Mccord who was accompanied by his significant other at today's office visit. He has a past medical history of asthma and vertigo. He presents to the office today for follow-up. Of note, patient was seen approximately 1 year ago and underwent surgical procedure with Dr. Tan for multiple scrotal sebaceous cysts. In discussion with the patient today he reports no bothersome scrotal issues. He reports following up for his prostate. He denies any bothersome urinary issues or concerns however would like to be sure he is undergoing surveillance monitoring for his prostate. When asked he denies urinary urgency, urinary frequency, incontinence, nocturia, hematuria, dysuria, foul smelling urine, changes to urinary stream, flank pain, fever, and or chills. He is happy with his current voiding parameters. TANNA offered however deferred. In review of patient's chart it appears PSA 04/07 0.5. He is unsure if he has any family history of prostate cancer. He otherwise offers no other issues or concerns at this time. [facility] Medical History Pain of right great toe Asthma Vertigo Surgical History History of surgery of head History of testicular surgery Family History Father Heart disease No family history of mental disorder Mother Heart disease Diabetes Hypertension Seizures No family history of mental disorder Social History Household Members: Spouse and Family Housing: Apartment Alcohol intake: current Alcohol intake frequency: holidays/special occasions only Patient Tobacco Use Status: Never used Tobacco e-Cigarette/Vaping Use: Never Used service: No Current occupational status: employed 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 Cognitive needs: No Hearing needs: No Vision needs: No Review of Systems Const All systems reviewed & are unremarkable except as noted in HPI and below Physical Exam Const General: cooperative, healthy appearing, comfortable, no acute distress, well developed, alert and awake Orientation/consciousness: patient oriented x3 Limitations: no limitations HEENT Head: Yes normal to inspection, Yes normocephalic and Yes atraumatic Ears: hearing grossly normal bilaterally Eyes General: appearance normal, both eyes and all related structures Neck Neck: Yes normal visual inspection and Yes trachea midline Chest Chest palpation & inspection: normal inspection of the chest Resp Effort & Inspection: normal respiratory effort and able to speak in complete sentences Cardio Rate: regular rate GI Inspection: Yes normal to inspection General: Yes no CVA tenderness Penis: normal penis and uncircumcised Meatus: meatus normal Scrotum: scrotum normal and other Testes: Testes normal Back/Spine/Pelvis Back: no CVA tenderness Skin General skin exam: no rashes or lesions noted Neuro General: patient oriented x3 Extrem General: Yes normal to inspection Psych Appearance: grossly normal and well kempt Mental Status: mental status grossly normal Speech and movement: Normal speech and movement present and Clear speech present Affect: normal affect Attitude: cooperative Thought process: Normal thought process present Thought content: Normal thought content present Insight: Good insight present (Psych) Judgement: Good judgement present (Psych) Results AMB Urinalysis, Automated UA Leukoctes 0 Rosa Maria/uL Last Edit by Stefanie Anderson on 10/23/23 16:12 UA Nitrite Negative Last Edit by Stefanie Anderson on 10/23/23 16:12 UA Urobilinogen 0.2 mg/dL Last Edit by [employer]lyn Anderson on 10/23/23 16:12 UA Protein 15 mg/dL Last Edit by Stefanie Anderson on 10/23/23 16:12 UA pH 6.0 Last Edit by Stefanie Anderson on 10/23/23 16:12 UA Blood 25 Severo/uL Last Edit by Stefanie Anderson on 10/23/23 16:12 UA Specific Kaplan 1.025 Last Edit by Stefanie Anderson on 10/23/23 16:12 UA Ketone Positive Last Edit by Stefanie Harrisonlashell on 10/23/23 16:12 UA Bilirubin 0 mg/dL Last Edit by Stefanie Harrisonlashell on 10/23/23 16:12 UA Glucose 0 mg/dL Last Edit by Stefanie Harrisonlashell on 10/23/23 16:12 Results Reviewed Results Reviewed: Laboratory Last Values Urine pH (Auto) 6.0 10/23/23 16:11 Specific Kaplan (Auto) 1.025 10/23/23 16:11 Urine Protein (Auto) 15 mg/dL 10/23/23 16:11 Glucose (UA)(Auto) 0 mg/dL 10/23/23 16:11 Urine Ketones (Auto) Positive 10/23/23 16:11 Urine Blood (Auto) 25 Severo/uL 10/23/23 16:11 Urine Nitrite (Auto) Negative 10/23/23 16:11 Urine Bilirubin (Auto) 0 mg/dL 10/23/23 16:11 Urine Urobilinogen (Auto) 0.2 mg/dL 10/23/23 16:11 Leukocyte Esterase (Auto) 0 Rosa Maria/uL 10/23/23 16:11 Assessment & Plan Assessment & Plan (1) BPH (benign prostatic hyperplasia): Code(s): N40.0 - Benign prostatic hyperplasia without lower urinary tract symptoms Plan In office urinalysis results reviewed with the patient today; as noted above. Patient currently denies any bothersome urinary issues or concerns. Reports be happy with current voiding parameters. TANNA offered however deferred. Will obtain PSA follow-up in 1-3 months with lab to be completed prior; or sooner with any issues, concerns, and or questions. Orders: Orders Prostate Specific Antigen Today N40.0 - Benign prostatic hyperplasia without lower urinary tract symptoms AMB Urinalysis Automated Today Z13.9 - Encounter for screening, unspecified Patient Instructions: The patient had an opportunity to ask questions regarding the treatment plan. All questions were answered. Physical exam, labs, and imaging were discussed and reviewed in detail. As well as risks, benefits, and discussion of treatment choices. No major barriers to understanding were identified. The patient expressed understanding and agreement with the above treatment plan. The patient was made aware they should contact our office by phone for worsening of their current condition, the appearance of new symptoms, or with any questions or concerns. Compliance is encouraged with any medications and follow up testing that is ordered. It is a privilege to be allowed the opportunity to participate in? your urological care.? Again, if you have any questions or concerns If you have any questions or concerns please do not hesitate to contact me. The office is [phone]. This note is constructed using voice recognition software. While every effort has been made to ensure accuracy digital printer operator errors may have been included. Yours sincerely, ALEX Langston Coding Level of Care Code Est Pt Level 3 (49308) Diagnoses BPH (benign prostatic hyperplasia) N40.0
== END 2023-10-23 15:57 | disposition home or self-care (01) ==
PROVIDERS: PCP Family Medicine; Visit Provider Nurse Practitioner Family
DX: Z13.9 Encounter for screening, unspecified (principal); N40.0 Benign prostatic hyperplasia without lower urinary tract symptoms
CPT/HCPCS: 99213

== ENCOUNTER → 2023-10-23 15:32 | Outpatient (BNVA) | payer OTHER, SELFPAY | PROVIDERS: PCP Family Medicine; Visit Provider Nurse Practitioner Family | DX: N40.0 Benign prostatic hyperplasia without lower urinary tract symptoms (principal) | CPT/HCPCS: 81003 ==

== ENCOUNTER 2023-10-31 06:50 | Outpatient (REF) | payer OTHER, SELFPAY ==
[2023-10-31 11:43] LABS: Prostate Specific Antigen 0.54 ng/mL (<0.05-4.0)
== END 2023-10-31 06:51 | disposition home or self-care (01) ==
LOC: HO.HMGCLDS 06:50
PROVIDERS: PCP Family Medicine; Visit Provider Nurse Practitioner Family
DX: Z12.5 Encounter for screening for malignant neoplasm of prostate (principal); N40.0 Benign prostatic hyperplasia without lower urinary tract symptoms
CPT/HCPCS: 36415; 84153

== ENCOUNTER 2023-11-04 15:07 | Outpatient (AMB) | payer SELFPAY ==
--- NOTE | 2023-11-04 15:14 | MHC.PC.OV ---
Vital Signs 11/04/23 15:16 Height 5 ft 10 in Weight 253 lb 2 oz BMI 36.3 BP 100/70 Blood Pressure Location Lt brachial Position Sitting Respiration 16 Pulse 67 Pulse Source Pulse Oximeter Temp 97.8 F Temp Source Tympanic Pulse Oximetry (%) 97 Oxygen Delivery Method Room Air 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: CPE Intake Note: CPE Allergies aspirin Allergy (Mild, Verified 11/04/23 15:14) rash, swelling Medication List - Last Reconciled 11/04/23 by Jesus Mccord MD albuterol sulfate 90 mcg/actuation 2 puffs inhalation Q6H PRN fluticasone propionate 50 mcg/actuation (Flonase Allergy Relief) 1 spray intranasal Q12H 30 days Tobacco use date assessed: 11/04/23 Dental Screening Dental Screen Date: 11/04/23 Did you have a dental visit in the last 12 months?: No Did you have a dental problem in the last 6 months where you did not have access to dental care?: No Was dental information given to patient?: Patient has dentist HPI CPE HPI Details 42 y/o male presents for an extended exam with f/u labs and health maintenance. No recent labs to review. Pt reports concerns about his weight. He is 5'10 253 lbs with a BMI of 36.3. Has complaints of ongoing back pain. He notes he had trialed physical therapy for his back. HPI Comments History of Present Illness Details Documentation assistance for Jesus Mccord MD, was provided by Romain Carrasco, Investment Fund Manager on 11/04/2023 at 3:46 PM EST. I, Dr. Mccord, have read, observed, and verified documentation. [facility] Medical History Pain of right great toe Asthma Vertigo Surgical History History of surgery of head History of testicular surgery Family History Father Heart disease No family history of mental disorder Mother Heart disease Diabetes Hypertension Seizures No family history of mental disorder Social History (Updated 11/04/23 @ 15:15 by Bry Berkowitz) Household Members: Spouse and Family Housing: Apartment Alcohol intake: current Alcohol intake frequency: holidays/special occasions only Patient Tobacco Use Status: Never used Tobacco e-Cigarette/Vaping Use: Never Used service: No Current occupational status: employed 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 1. Little interest or pleasure in doing things: several days 2. Feeling down, depressed, or hopeless: not at all 3. Trouble falling or staying asleep, or sleeping too much: nearly every day 4. Feeling tired or having little energy: several days 5. Poor appetite or overeating: not at all 6. Feeling bad about yourself - or that you are a failure or have let yourself or your family down: not at all 7. Trouble concentrating on things, such as reading the newspaper or watching television: not at all 8. Moving or speaking so slowly that other people could have noticed. Or the opposite - being so fidgety or restless that you have been moving around a lot more than usual: not at all 9. Thoughts that you would be better off or of hurting yourself in some way: not at all Total score: 5 Depression Screening Interpretation: Positive Depression Screening Done: Yes 91519 - PHQ-9 Billing: Yes Source: Developed by Drs. Norris Shah, Oksana Ventura, Anand Lakhani and colleagues, with an educational romario from [employer]. Thrive Questionnaire Date Thrive assessed: 11/04/23 I am a: Patient What is your living situation today?: I have a steady place to live Within the past 12 months, did the food you bought not last and you didn't have the money to get more?: Never true Within the past 12 months, did you worry whether your food would run out before you got money to buy more?: Never true Do you have trouble paying for medicines?: No Do you have trouble getting transportation to medical appointments?: No Do you have trouble paying your heating and electricity bill?: Yes Do you have trouble taking care of your child, family member or friend?: No Do you have trouble with day-to-day activities such as bathing, preparing meals, shopping, managing finances, etc.?: No Are you currently unemployed and looking for a job?: No Are you interested in more education?: No Please select the resources that you would like help with: Utilities Currently or been in a relationship where the following occur: No concerns reported THRIVE Score: 1 AUDIT C Alcohol Use Questionnaire (AUDIT-C) 1. How often do you have a drink containing alcohol?: Monthly or less 2. How many drinks containing alcohol do you have on a typical day when you are drinking?: 1 or 2 3. How often do you have six or more drinks on one occasion?: Less than monthly Total Score: 2 Score Reviewed/Action Taken: Yes REJI-7 AMB Questionnaire REJI-7 Date REJI - 7 assessed: 11/04/23 Source: Developed by Drs. Norris Shah, Oksana Ventura, Anand Lakhani and colleagues, with an educational romario from [employer]. REJI-7 Assessment Billing REJI-7 Assessment Tool: pt declined-do not bill Review of Systems Const Denies chills, Denies fatigue, Denies fever(s), Denies headache(s) and Denies weakness Eyes Denies change in vision ENT Denies dizziness, Denies headache(s), Denies hearing loss, Denies nasal congestion, Denies sinus pain, Denies sinus pressure and Denies sore throat Card Denies chest pain, Denies lightheadedness, Denies dyspnea and Denies other (palpitations) Resp Denies cough, Denies dyspnea and Denies wheezing GI Denies abdominal pain, Denies melena, Denies hematochezia, Denies change in bowel habits, Denies dyspepsia and Denies nausea Denies hematuria and Denies dysuria Musc Denies abnormal gait, Reports back pain, Denies myalgias, Denies arthralgias, Denies numbness and Denies tingling Skin/Breast Denies rash, Denies unusual bruising and Denies wounds Neuro Denies abnormal gait, Denies dizziness, Denies headache(s), Denies memory loss, Denies numbness, Denies Sensory deficit (Neuro), Denies tingling and Denies weakness Psych Denies anxiety, Denies depression and Denies memory loss Endo Denies cold intolerance, Denies fatigue, Denies heat intolerance, Denies polydipsia and Denies polyuria Luca/Lymph Denies easy bleeding and Denies easy bruising Aller/Immun Denies wheezing Physical exam (Primary Care) Vital Signs: Last Vital Signs Temp 97.8 F 11/04/23 15:16 Pulse 67 11/04/23 15:16 Resp 16 11/04/23 15:16 BP 100/70 11/04/23 15:16 Pulse Ox 97 11/04/23 15:16 Oxygen Delivery Method Room Air 11/04/23 15:16 BMI result Body Mass Index 36.3 Tobacco/Smoking Status: Tobacco use Status Tobacco use date assessed 11/04/23 11/04/23 15:24 Patient Tobacco Use Status Never used Tobacco 11/04/23 15:24 e-Cigarette/Vaping Use Never Used 11/04/23 15:24 PHQ-9: PHQ-9 Score PHQ-9: Total score 5 11/04/23 15:27 Depression Screening Interpretation: Positive Thrive Assessment: Date of Thrive Assessment Date Thrive assessed 11/04/23 11/04/23 15:27 Currently or been in a relationship where the following occur: No concerns reported Const General: no acute distress, well developed, alert and awake Nutritional Appearance: well nourished Orientation/consciousness: patient oriented x3 HENMT Head: Yes normocephalic and Yes atraumatic Ears: hearing grossly normal bilaterally and TM's normal bilaterally General nose exam: Normal external nose present and Normal nares present Mouth: Normal oral and palatal mucosa present and moist mucous membranes Teeth and gingiva: dentition normal Throat: Yes posterior oropharynx normal Eyes General: appearance normal, both eyes and all related structures Pupils: Equal, round and reactive pupils present and Pupil accommodation reflex normal EOM: EOMs intact bilaterally Neck Neck: Yes normal visual inspection, Yes no lymphadenopathy and Yes trachea midline Thyroid: Thyroid normal Carotids: no bruits Lymphatic: no lymphadenopathy noted Chest Chest palpation & inspection: normal inspection of the chest Resp Effort & Inspection: normal respiratory effort Auscultation: clear to auscultation bilaterally Cardio Rate: regular rate Rhythm: regular rhythm Heart sounds: S1 normal heart sound present, S2 normal heart sound present, no gallops, no murmurs and no rubs Bruits: no abdominal aortic bruits and no carotid bruits GI Palpation (GI): No Abdominal aortic bruit present, Soft to palpation, nontender, No hepatosplenomegaly present and No Rebound tenderness present Auscultation: normal bowel sounds General: Yes no CVA tenderness Back/Spine/Pelvis Back: no CVA tenderness Cervical Spine: cervical ROM normal and No Cervical spine tenderness Thoracic/Lumbar Spine: thoraco-lumbar ROM normal, No pain with thoraco-lumbar ROM, No thoracic spinal tenderness and No lumbar spinal tenderness Skin Lesions: no lesions Rashes: no rashes Trauma: no lacerations or abrasions Wounds: no wounds Nails: normal Neuro General: patient oriented x3 Cranial nerves: Yes Equal, round and reactive pupils present Cognition (Neuro): normal cognition Gait exam (Neuro): Normal gait present Motor exam (neuro): 5/5 motor strength present throughout Sensory Exam: No Sensory deficit (Neuro) Deep tendon reflexes (DTR's): Right patellar reflex intensity grade: 2+ and Left patellar reflex intensity grade: 2+ Extrem General: Yes normal to inspection and No edema Psych Appearance: grossly normal Affect: normal affect Attitude: cooperative Thought process: Normal thought process present Assessment and Plan Assessment & Plan (1) Physical exam, annual: Code(s): Z00.00 - Encounter for general adult medical examination without abnormal findings Plan: 42-year-old?male?presents?for?complete?physical?exam Exam?within?normal?limits?except?as?described?below. 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 He?has?benefited?from?physical?therapy?in?the?past?but?not?fully?improved. Uses?some?Tylenol I?will?give?him?a?script?for?naproxen I?will?refer?him?to?physiatry?for?further?workup?and?treatment. (4) Screening for prostate cancer: Code(s): Z12.5 - Encounter for screening for malignant neoplasm of prostate Plan: Patient?has?BPH?and?is?followed?by?Urology Follow-up?with?urology?as?recommended Orders: Orders Comprehensive [place]. Panel Fast Today Z00.00 - Encounter for general adult medical examination without abnormal findings Complete Blood Count Auto Diff Today Z00.00 - Encounter for general adult medical examination without abnormal findings Lipid Panel Today Z00.00 - Encounter for general adult medical examination without abnormal findings Microalbumin, Random (w Creat) Today I10 - Essential (primary) hypertension TSH reflex Free T4 Today Z00.00 - Encounter for general adult medical examination without abnormal findings UA and rflx microscopic Today Z00.00 - Encounter for general adult medical examination without abnormal findings Referrals Physiatry Referral M54.50 - Low back pain, unspecified Medications: New naproxen 500 mg PO BID 30 days 60 tabs 2RF Coding Level of Care Code Est Pt Level 4 (71294) Diagnoses Physical exam, annual Z00.00 Obesity E66.9 Low back pain M54.50 Screening for prostate cancer Z12.5
[2023-11-04 15:16] VITALS: BP 100/70; PULSE 67; RESP 16; TEMP 36.6; O2SAT 97; BMI 36.3
== END 2023-11-04 15:49 | disposition home or self-care (01) ==
PROVIDERS: Visit Provider Family Medicine
DX: Z00.00 Encounter for general adult medical examination without abnormal findings (principal); M54.50 Low back pain, unspecified; E66.9 Obesity, unspecified; Z68.33 Body mass index [BMI] 33.0-33.9, adult; Z12.5 Encounter for screening for malignant neoplasm of prostate
CPT/HCPCS: 99214; 99396

== ENCOUNTER 2023-12-14 15:47 | Outpatient (AMB) | payer OTHER, SELFPAY ==
--- NOTE | 2023-12-14 16:10 | A.OFFVIS_ITS ---
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: 2m/PSA(set) Intake Note: Patient presents today for follow up on: psa results PSA: 0.54 Urology Medications: none Blood Thinner: none Accompanied by: Unknown Allergies aspirin Allergy (Mild, Verified 12/14/23 16:38) rash, swelling Medication List - Last Reconciled 12/14/23 by ALEX Langston albuterol sulfate 90 mcg/actuation 2 puffs inhalation Q6H PRN fluticasone propionate 50 mcg/actuation (Flonase Allergy Relief) 1 spray intranasal Q12H 30 days HPI Comments Details: Vineet is a very pleasant 42-year-old Nauruan-speaking male patient of Dr. Mccord who was accompanied by his significant other at today's office visit. He has a past medical history of asthma and vertigo. He presents to the office today for follow-up. Of note, patient was seen approximately 2 months ago at which time a PSA was ordered for surveillance monitoring and these results were reviewed with the patient today. PSA: 04/07 0.5, 11/06 0.5 He currently denies any bothersome urinary issues or concerns. Patient with a previous surgical history with Dr. Tan for multiple scrotal sebaceous cyst and reports no bothersome scrotal issues or concerns. When asked he denies urinary urgency, urinary frequency, incontinence, nocturia, hematuria, dysuria, foul smelling urine, changes to urinary stream, flank pain, fever, and or chills. He is happy with his current voiding parameters. He discusses not knowing his family history and therefore would like to continue with surveillance monitoring. In office urinalysis results reviewed with the patient today. We discussed at length potential causes of microscopic hematuria as well as further workup. He otherwise offers no other issues or concerns at this time. 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 Cognitive needs: No Hearing needs: No Vision needs: No Review of Systems Const All systems reviewed & are unremarkable except as noted in HPI and below Physical Exam Const General: cooperative, healthy appearing, comfortable, no acute distress, well developed, alert and awake Orientation/consciousness: patient oriented x3 Limitations: no limitations HEENT Head: Yes normal to inspection, Yes normocephalic and Yes atraumatic Ears: hearing grossly normal bilaterally Eyes General: appearance normal, both eyes and all related structures Neck Neck: Yes normal visual inspection and Yes trachea midline Chest Chest palpation & inspection: normal inspection of the chest Resp Effort & Inspection: normal respiratory effort and able to speak in complete sentences Cardio Rate: regular rate GI Inspection: Yes normal to inspection General: Yes no CVA tenderness Penis: normal penis and uncircumcised Meatus: meatus normal Scrotum: scrotum normal and other Testes: Testes normal Back/Spine/Pelvis Back: no CVA tenderness Skin General skin exam: no rashes or lesions noted Neuro General: patient oriented x3 Extrem General: Yes normal to inspection Psych Appearance: grossly normal and well kempt Mental Status: mental status grossly normal Speech and movement: Normal speech and movement present and Clear speech present Affect: normal affect Attitude: cooperative Thought process: Normal thought process present Thought content: Normal thought content present Insight: Good insight present (Psych) Judgement: Good judgement present (Psych) Results AMB Urinalysis, Automated UA Leukoctes 0 Rosa Maria/uL Last Edit by Stefanie Anderson on 12/14/23 16:20 UA Nitrite Last Edit by Stefanie Anderson on 12/14/23 16:20 UA Urobilinogen 0.2 mg/dL Last Edit by Stefanie Anderson on 12/14/23 16:20 UA Protein 15 mg/dL Last Edit by Stefanie Anderson on 12/14/23 16:20 UA pH 6.0 Last Edit by Stefanie Anderson on 12/14/23 16:20 UA Blood 25 Severo/uL Last Edit by Stefanie Anderson on 12/14/23 16:20 UA Specific [place] 1.030 Last Edit by Stefanie Anderson on 12/14/23 16:20 UA Ketone Negative Last Edit by Stefanie Anderson on 12/14/23 16:20 UA Bilirubin 0 mg/dL Last Edit by Stefanie Anderson on 12/14/23 16:20 UA Glucose 0 mg/dL Last Edit by Stefanie Anderson on 12/14/23 16:20 Results Reviewed Results Reviewed: Laboratory Last Values Urine pH (Auto) 6.0 12/14/23 16:19 Specific [place] (Auto) 1.030 12/14/23 16:19 Urine Protein (Auto) 15 mg/dL 12/14/23 16:19 Glucose (UA)(Auto) 0 mg/dL 12/14/23 16:19 Urine Ketones (Auto) Negative 12/14/23 16:19 Urine Blood (Auto) 25 Severo/uL 12/14/23 16:19 Urine Bilirubin (Auto) 0 mg/dL 12/14/23 16:19 Urine Urobilinogen (Auto) 0.2 mg/dL 12/14/23 16:19 Leukocyte Esterase (Auto) 0 Rosa Maria/uL 12/14/23 16:19 Assessment & Plan Assessment & Plan (1) Microscopic hematuria: Code(s): R31.29 - Other microscopic hematuria Category: Medical Plan In office urinalysis results reviewed with the patient today; as noted above; will send for urine cytology. Discussed potential causes of microscopic hematuria as well as further workup versus surveillance monitoring; risks and benefits of these interventions were discussed Will continue with surveillance monitoring of microscopic hematuria. Recent PSA results reviewed with the patient today; as noted above. Patient currently denies any bothersome urinary issues or concerns. He reports be happy with current voiding parameters. Follow-up 1 year; or sooner with any issues, concerns, and or questions. Orders: Orders AMB Urinalysis Automated Today Z13.9 - Encounter for screening, unspecified Urine Cytology Today Z13.9 - Encounter for screening, unspecified Patient Instructions: The patient had an opportunity to ask questions regarding the treatment plan. All questions were answered. Physical exam, labs, and imaging were discussed and reviewed in detail. As well as risks, benefits, and discussion of treatment sam marcelino. No major barriers to understanding were identified. The patient expressed understanding and agreement with the above treatment plan. The patient was made aware they should contact our office by phone for worsening of their current condition, the appearance of new symptoms, or with any questions or concerns. Compliance is encouraged with any medications and follow up testing that is ordered. It is a privilege to be allowed the opportunity to participate in? your urological care.? Again, if you have any questions or concerns If you have any questions or concerns please do not hesitate to contact me. The office is [phone]. This note is constructed using voice recognition software. While every effort has been made to ensure accuracy machine erector errors may have been included. Yours sincerely, ALEX Langston Coding Level of Care Code Est Pt Level 3 (18090) Diagnoses Microscopic hematuria R31.29
== END 2023-12-14 16:40 ==
PROVIDERS: PCP Family Medicine; Visit Provider Nurse Practitioner Family
DX: R31.29 Other microscopic hematuria (principal); Z13.9 Encounter for screening, unspecified
CPT/HCPCS: 99213

== ENCOUNTER 2023-12-14 15:47 | Outpatient (REF) | payer OTHER, SELFPAY ==
[2023-12-14 17:10] LABS: Urine Cytology See Pathology rpt
== END 2023-12-14 15:48 | disposition home or self-care (01) ==
LOC: HO.LNP 15:47
PROVIDERS: PCP Family Medicine; Visit Provider Nurse Practitioner Family
DX: R31.29 Other microscopic hematuria (principal)
CPT/HCPCS: 81003; 88112

== ENCOUNTER 2024-01-01 07:26 | Outpatient (REF) | payer OTHER, SELFPAY ==
[2024-01-01 10:47] LABS: Appearance Urine Turbid; Color Urine Yellow; Glucose Urine UA Negative (Negative); Leukocyte Esterase Urine Negative (Negative); Nitrite Urine Negative (Negative); PH 5.5 (5.0-9.0); Specific Gravity - Urine 1.025 (1.005-1.025); Urine Blood Negative (Negative); Urine Ketones Negative (Negative); Urine Protein Negative (Neg-Trace)
[2024-01-01 10:54] LABS: MANUAL DIFF FLAG NO
[2024-01-01 11:02] LABS: Basophils Percent Auto 0.7 % (0-2); Eosinophils Absolute Auto 0.5 X10*3/uL (0.0-0.4); Eosinophils Percent Auto 8.1 % (0-4); Hematocrit 40.8 % (42.0-52.0); Hemoglobin 13.5 g/dl (14.0-18.0); Imm Gran Abs Auto 0.02 X10*3/uL (0.00-0.03); Imm Gran Pct Auto 0.3 % (0.0-0.4); Lymphocytes Absolute Auto 1.7 X10*3/uL (1.2-4.9); Lymphocytes Percent Auto 27.1 % (20-40); Mean Corpuscular HGB Conc 33.1 g/dl (31.0-36.0); Mean Corpuscular Volume 90.7 fL (80.0-98.0); Mean Platelet Volume 11.6 fL (9.4-12.4); Monocytes Absolute Auto 0.5 X10*3/uL (0.1-1.2); Monocytes Percent Auto 8.7 % (2-11); Neutrophils Absolute Auto 3.4 x10*3/uL (2.0-8.3); Neutrophils Percent Auto 55.1 % (45-73); Platelet Count 257 X10*3/uL (160-400); Red Cell Distribution Width 12.7 % (11.0-16.0); White Blood Count 6.1 X10*3/uL (4.8-10.8)
[2024-01-01 11:17] LABS: Creatinine Urine 239.29 mg/dL
[2024-01-01 12:15] LABS: Alanine Aminotransferase 22 U/L (0-40); Alkaline Phosphatase 50 U/L (39-117); Anion Gap 10 (12-20); Aspartate Amino Transferase 25 U/L (5-37); Bilirubin Total 0.7 mg/dL (0.0-1.0); Blood Urea Nitrogen 15 mg/dL (9-16); Calcium 9.2 mg/dL (8.4-10.2); Carbon Dioxide 25 mmol/L (22-29); Chloride 112 mmol/L (96-108); Cholesterol 159 mg/dL (<200); Estimated Glomerular Filt Rate > 60; Glucose Fasting 92 mg/dL (60-99); HDL Cholesterol 48 mg/dL (>40); LDL Cholesterol Calculated 100 mg/dL (<100); Potassium 4.1 mmol/L (3.3-5.1); Sodium 143 mmol/L (135-145); Total Protein 7.3 g/dL (6.5-8.0); Triglycerides 57 mg/dL (<150)
[2024-01-01 12:19] LABS: TSH reflex Free T4 0.61 uIU/mL (0.32-4.0)
== END 2024-01-01 07:27 | disposition home or self-care (01) ==
LOC: HO.HMGCLDS 07:26
PROVIDERS: PCP Family Medicine; Visit Provider Family Medicine
DX: Z00.00 Encounter for general adult medical examination without abnormal findings (principal); I10 Essential (primary) hypertension
CPT/HCPCS: 36415; 80053; 80061; 81003; 82043; 82570; 84443; 85025

== ENCOUNTER 2024-01-13 15:11 | Outpatient (AMB) | payer OTHER, SELFPAY ==
--- NOTE | 2024-01-13 15:20 | MHC.PC.OV ---
Vital Signs 01/13/24 15:25 Height 5 ft 10 in Weight 251 lb 8 oz BMI 36.1 BP 106/64 Blood Pressure Location Rt brachial Position Sitting Respiration 16 Pulse 64 Pulse Source Pulse Oximeter Temp 97.3 F Temp Source Temporal Artery Scan Pulse Oximetry (%) 99 Oxygen Delivery Method Room Air 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: fu labs in person Intake Note: f/u labs Allergies aspirin Allergy (Mild, Verified 01/13/24 15:24) rash, swelling Tobacco use date assessed: 11/04/23 Dental Screening Dental Screen Date: 11/04/23 HPI fu labs in person HPI Details 43 y/o male presents to f/u labs. Labs drawn 01/01/24. Reviewed labs with pt. Mild anemia. Triglycerides 57. TC 159. LDl 100. HDL 48. He reports he has had a hx of mild anemia in the past. [facility] Medical History Pain of right great toe Asthma Vertigo Surgical History History of surgery of head History of testicular surgery Family History Father Heart disease No family history of mental disorder Mother Heart disease Diabetes Hypertension Seizures No family history of mental disorder Social History Household Members: Spouse and Family Housing: Apartment Alcohol intake: current Alcohol intake frequency: holidays/special occasions only Patient Tobacco Use Status: Never used Tobacco e-Cigarette/Vaping Use: Never Used service: No Current occupational status: employed 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 1. Little interest or pleasure in doing things: several days 2. Feeling down, depressed, or hopeless: not at all 3. Trouble falling or staying asleep, or sleeping too much: more than half the days 4. Feeling tired or having little energy: several days 5. Poor appetite or overeating: several days 6. Feeling bad about yourself - or that you are a failure or have let yourself or your family down: not at all 7. Trouble concentrating on things, such as reading the newspaper or watching television: not at all 8. Moving or speaking so slowly that other people could have noticed. Or the opposite - being so fidgety or restless that you have been moving around a lot more than usual: not at all 9. Thoughts that you would be better off or of hurting yourself in some way: not at all Total score: 5 Source: Developed by Drs. Norris Shah, Oksana Ventura, Anand Lakhani and colleagues, with an educational romario from [employer]. Thrive Questionnaire Date Thrive assessed: 11/04/23 I am a: Patient What is your living situation today?: I have a steady place to live Within the past 12 months, did the food you bought not last and you didn't have the money to get more?: Never true Within the past 12 months, did you worry whether your food would run out before you got money to buy more?: Sometimes True Do you have trouble paying for medicines?: No Do you have trouble getting transportation to medical appointments?: No Do you have trouble paying your heating and electricity bill?: I choose not to answer this question Do you have trouble taking care of your child, family member or friend?: No Do you have trouble with day-to-day activities such as bathing, preparing meals, shopping, managing finances, etc.?: No Are you currently unemployed and looking for a job?: No Are you interested in more education?: I choose not to answer this question Please select the resources that you would like help with: Food and Utilities Currently or been in a relationship where the following occur: No concerns reported THRIVE Score: 1 AUDIT C Alcohol Use Questionnaire (AUDIT-C) 1. How often do you have a drink containing alcohol?: Monthly or less 2. How many drinks containing alcohol do you have on a typical day when you are drinking?: 1 or 2 3. How often do you have six or more drinks on one occasion?: Never Total Score: 1 REJI-7 AMB Questionnaire REJI-7 Date REJI - 7 assessed: 11/04/23 Feeling nervous, anxious, or on edge: 0 = Not at all Not being able to stop or control worryin = Several days Worrying too much about different things: 0 = Not at all Trouble relaxin = Not at all Being so restless that it is hard to sit still: 0 = Not at all Becoming easily annoyed or irritable: 1 = Several days Feeling afraid as if something awful might happen: 0 = Not at all Total REJI-7 score (0-4 normal; 5-9 mild; 10-14 moderate; 15-21 severe): 2 Source: Developed by Drs. Norris Shah, Oksana Ventura, Anand Lakhani and colleagues, with an educational romario from [employer]. Review of Systems Const Denies chills, Denies fatigue, Denies fever(s), Denies headache(s) and Denies weakness ENT Denies dizziness and Denies headache(s) Card Denies dyspnea Resp Denies cough, Denies dyspnea, Denies wheezing and Denies other (shortness of breath) Musc Denies numbness and Denies tingling Neuro Denies dizziness, Denies headache(s), Denies numbness, Denies tingling and Denies weakness Psych Denies anxiety and Denies depression Endo Denies fatigue Aller/Immun Denies wheezing Physical exam (Primary Care) Vital Signs: Last Vital Signs Temp 97.3 F 01/13/24 15:25 Pulse 64 01/13/24 15:25 Resp 16 01/13/24 15:25 BP 94/54 L 01/13/24 15:25 Pulse Ox 99 01/13/24 15:25 Oxygen Delivery Method Room Air 01/13/24 15:25 BMI result Body Mass Index 36.1 Tobacco/Smoking Status: Tobacco use Status Tobacco use date assessed 11/04/23 01/13/24 15:21 Patient Tobacco Use Status Never used Tobacco 01/13/24 15:21 e-Cigarette/Vaping Use Never Used 01/13/24 15:21 PHQ-9: PHQ-9 Score PHQ-9: Total score 5 01/13/24 16:15 Thrive Assessment: Date of Thrive Assessment Date Thrive assessed 11/04/23 01/13/24 15:21 Currently or been in a relationship where the following occur: No concerns reported Const General: well developed; No acute distress Nutritional Appearance: well nourished Orientation/consciousness: patient oriented x3 HENMT Head: Yes normocephalic and Yes atraumatic Eyes General: appearance normal, both eyes and all related structures Pupils: Equal, round and reactive pupils present EOM: EOMs intact bilaterally Resp Effort & Inspection: normal respiratory effort Neuro General: patient oriented x3 and gait normal Cranial nerves: Yes Equal, round and reactive pupils present Psych Affect: normal affect Coding Level of Care Code Est Pt Level 3 (00468) Diagnoses Mild anemia D64.9 Assessment & Plan Assessment & Plan (1) Mild anemia: Code(s): D64.9 - Anemia, unspecified Category: Medical Plan: Patient?has?mild?anemia?with?unclear?cause Will?recheck?labs?and?follow-up?at?next?visit Orders: Orders Complete Blood Count Auto Diff Today D64.9 - Anemia, unspecified, Z00.00 - Encounter for general adult medical examination without abnormal findings Basic Metabolic Panel Today D64.9 - Anemia, unspecified, Z00.00 - Encounter for general adult medical examination without abnormal findings IRON PROFILE Today D64.9 - Anemia, unspecified Reticulocyte Count Today D64.9 - Anemia, unspecified Vitamin B12 and Folate Today D64.9 - Anemia, unspecified, E53.8 - Deficiency of other specified B group vitamins Hemoglobin Electrophoresis Today D64.9 - Anemia, unspecified
[2024-01-13 15:25] VITALS: BP 106/64; PULSE 64; RESP 16; TEMP 36.3; O2SAT 99; BMI 36.1
== END 2024-01-13 16:29 | disposition home or self-care (01) ==
LOC: HO.HMCFM 15:12
PROVIDERS: PCP Family Medicine; Visit Provider Family Medicine
DX: D64.9 Anemia, unspecified (principal)

== ENCOUNTER → 2024-01-13 15:11 | Outpatient (BNVA) | payer OTHER, SELFPAY | PROVIDERS: PCP Family Medicine; Visit Provider Family Medicine ==

== ENCOUNTER 2024-01-21 14:51 | Outpatient (AMB) | payer OTHER, SELFPAY ==
--- NOTE | 2024-01-21 15:23 | AM.OFFWIN_ITS ---
Intake Vital Signs 01/21/24 15:28 Height 5 ft 10 in Weight 252 lb 2 oz BMI 36.2 BP 120/80 Blood Pressure Location Rt brachial Position Sitting Pulse 62 Pulse Source Pulse Oximeter Pulse Oximetry (%) 98 Oxygen Delivery Method Room Air 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: EP RT ear pain Patient Tobacco Use Status: Never used Tobacco Allergies aspirin Allergy (Mild, Verified 01/22/24 08:32) rash, swelling PFSH Medical History Pain of right great toe Asthma Vertigo Surgical History History of surgery of head History of testicular surgery Family History Father Heart disease No family history of mental disorder Mother Heart disease Diabetes Hypertension Seizures No family history of mental disorder Social History Household Members: Spouse and Family Housing: Apartment Alcohol intake: current Alcohol intake frequency: holidays/special occasions only Patient Tobacco Use Status: Never used Tobacco e-Cigarette/Vaping Use: Never Used service: No Current occupational status: employed 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
[2024-01-21 15:28] VITALS: BP 120/80; PULSE 62; O2SAT 98; BMI 36.2
--- NOTE | 2024-01-21 15:31 | AM.OFFWIN_ITS ---
Intake Vital Signs 01/21/24 15:28 Height 5 ft 10 in Weight 252 lb 2 oz BMI 36.2 BP 120/80 Blood Pressure Location Rt brachial Position Sitting Pulse 62 Pulse Source Pulse Oximeter Pulse Oximetry (%) 98 Oxygen Delivery Method Room Air 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: EP RT ear pain Intake Note: Patient here for sinus congestion and bilat ear pain Patient Tobacco Use Status: Never used Tobacco Allergies aspirin Allergy (Mild, Verified 01/21/24 15:31) rash, swelling Do you need a note to return to daycare/school/sports/work: No HPI HPI Comments History of Present Illness Details Patient is a 43-year-old male complaining of 2 weeks bilateral ear pain. He tells me 2 weeks ago he had a cough and fevers and head congestion and sinus pain but it all has resolved. He tells me he has has residual ear pain. He denies any shortness of breath or wheezing or trouble hearing. [facility] Medical History Pain of right great toe Asthma Vertigo Surgical History History of surgery of head History of testicular surgery Family History Father Heart disease No family history of mental disorder Mother Heart disease Diabetes Hypertension Seizures No family history of mental disorder Social History Household Members: Spouse and Family Housing: Apartment Alcohol intake: current Alcohol intake frequency: holidays/special occasions only Patient Tobacco Use Status: Never used Tobacco e-Cigarette/Vaping Use: Never Used service: No Current occupational status: employed 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 Cognitive needs: No Hearing needs: No Vision needs: No Review of Systems Const All systems reviewed & are unremarkable except as noted in HPI and below Physical Exam Vital Signs: Last Vital Signs Pulse 62 01/21/24 15:28 BP 120/80 01/21/24 15:28 Pulse Ox 98 01/21/24 15:28 Oxygen Delivery Method Room Air 01/21/24 15:28 BMI result Body Mass Index 36.2 Const General: cooperative, healthy appearing, comfortable and no acute distress Orientation/consciousness: patient oriented x3 HEENT Head: Yes normal to inspection, Yes No palpable skull fracture present and Yes normocephalic Ears: hearing grossly normal bilaterally, external ears normal, TM's normal bilaterally, EAC's normal, mastoids normal (no TTP) bilaterally and Abnormal EAC present (bilateral) erythema, edema and EAC tenderness General nose exam: Normal external nose present Face and sinus: Yes normal facial exam Mouth: Normal oral and palatal mucosa present Teeth and gingiva: dentition normal Throat: Yes posterior oropharynx normal Eyes General: appearance normal, both eyes and all related structures Neck Neck: Yes normal visual inspection, Yes full ROM, Yes no lymphadenopathy, Yes no meningeal signs, Yes trachea midline and Yes supple Resp Effort & Inspection: normal respiratory effort and able to speak in complete sentences Skin General skin exam: no rashes or lesions noted Neuro General: patient oriented x3 and no meningeal signs Assessment & Plan Assessment & Plan (1) Otitis externa: Code(s): H60.90 - Unspecified otitis externa, unspecified ear Qualifiers: Otitis externa type: other infective Chronicity: acute Laterality: bilateral Qualified Code(s): H60.393 - Other infective otitis externa, bilateral Plan: Sent drops to pharmacy Plan See above Medications: New [id number] 3.5-10,000-1 mg/mL-unit/mL-% 4 drps otic (ears) Q8H 7 days 10 mL 0RF Coding Level of Care Code Est Pt Level 3 (16091) Diagnoses Other infective acute otitis externa of both ears H60.393 Otitis externa type: other infective Chronicity: acute Laterality: bilateral
== END 2024-01-21 15:44 | disposition home or self-care (01) ==
PROVIDERS: PCP Family Medicine; Visit Provider Physician Assistant
DX: H60.393 Other infective otitis externa, bilateral (principal)

== ENCOUNTER → 2024-01-21 14:51 | Outpatient (BNVA) | payer OTHER, SELFPAY | PROVIDERS: PCP Family Medicine; Visit Provider Physician Assistant ==

== ENCOUNTER 2024-01-22 08:26 | Outpatient (AMB) | payer OTHER, SELFPAY ==
--- NOTE | 2024-01-22 08:31 | MHC.OFFWIV ---
Intake Vital Signs 01/22/24 08:33 Weight 252 lb BP 124/80 Blood Pressure Location Rt brachial Position Sitting Pulse 70 Pulse Source Pulse Oximeter Pulse Oximetry (%) 98 Oxygen Delivery Method Room Air 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: EP Dizzy, ear pain Intake Note: Patient here for right ear pain and dizziness. Patient Tobacco Use Status: Never used Tobacco Allergies aspirin Allergy (Mild, Verified 01/22/24 08:32) rash, swelling Do you need a note to return to daycare/school/sports/work: No HPI HPI Comments History of Present Illness Details This is a 43-year-old male who presented to the walk-in clinic complaining of vertigo/dizziness. He states he was evaluated at the walk-in clinic yesterday and he was diagnosed with otitis externa and started on ear drops. Patient states he has been using the ear drops as prescribed and his ear pain has slightly improved; however, patient reports a history of vertigo and he woke up this morning feeling dizzy. He describes his dizziness as a room spinning sensation and feels as though he is leaning more to 1 side than the other. He denies any numbness/weakness/paresthesias of his extremities. He denies any visual disturbances, slurred speech, or facial asymmetry. [facility] Medical History Pain of right great toe Asthma Vertigo Surgical History History of surgery of head History of testicular surgery Family History Father Heart disease No family history of mental disorder Mother Heart disease Diabetes Hypertension Seizures No family history of mental disorder Social History Household Members: Spouse and Family Housing: Apartment Alcohol intake: current Alcohol intake frequency: holidays/special occasions only Patient Tobacco Use Status: Never used Tobacco e-Cigarette/Vaping Use: Never Used service: No Current occupational status: employed 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 Cognitive needs: No Hearing needs: No Vision needs: No Review of Systems Const All systems reviewed & are unremarkable except as noted in HPI and below Reports no additional complaints Eyes Reports no additional complaints ENT Reports no additional complaints Card Reports no additional complaints Resp Reports no additional complaints GI Reports no additional complaints Reports no additional complaints Musc Reports no additional complaints Skin/Breast Reports system reviewed and no additional complaints, except as documented Neuro Reports no additional complaints Psych Reports no additional complaints Endo Reports no additional complaints Luca/Lymph Reports no additional complaints Aller/Immun Reports no additional complaints Physical Exam Vital Signs: Last Vital Signs Pulse 70 01/22/24 08:33 BP 124/80 01/22/24 08:33 Pulse Ox 98 01/22/24 08:33 Oxygen Delivery Method Room Air 01/22/24 08:33 Const Other: Vital signs reviewed. Constitutional: Non-toxic appearing. No acute distress. Well-developed and well-nourished. HEENT: Normocephalic and atraumatic. There is erythema, edema, and tenderness of bilateral external auditory canals. Skin: Warm and dry. No rashes or lesions noted. Neck: Full and painless range of motion. No cervical lymphadenopathy. Cardio: Regular rate and rhythm. No murmurs, gallops, or rubs. Pulmonary: No respiratory distress. No accessory muscle usage. Clear to auscultation bilaterally without wheezing, crackles, or rhonchi. Musculoskeletal: Normal range of motion in joints throughout the body. No deformity or other signs of injury. Neuro: Alert and oriented x4. Cranial nerves 2-12 intact. No muscular or sensory deficits elicited on exam. Facial movements are equal and symmetric. Psych: Normal mood and affect. Assessment & Plan Assessment & Plan (1) BPPV (benign paroxysmal positional vertigo): Code(s): H81.10 - Benign paroxysmal vertigo, unspecified ear Qualifiers: Laterality: unspecified laterality Qualified Code(s): H81.10 - Benign paroxysmal vertigo, unspecified ear Plan: This is a 43-year-old male who presented to the walk-in clinic complaining of dizziness/vertigo symptoms beginning this morning in the setting of recent diagnosis of bilateral acute otitis externa. On physical examination, patient is completely neurologically intact without any focal deficits. His dizziness appears to be related to BPPV. Patient was given a prescription for PO meclizine 25 mg 3 times daily as needed for dizziness. Patient was instructed to proceed directly to the emergency room if he were to develop unilateral numbness/weakness/paresthesias, facial asymmetry, slurred speech, or visual disturbances. Patient verbalizes understanding and he is in agreement with the plan. Medications: New meclizine 25 mg PO TID PRN 20 tabs 0RF dizziness Coding Level of Care Code Est Pt Level 3 (79813) Diagnoses Benign paroxysmal positional vertigo, unspecified laterality H81.10 Laterality: unspecified laterality
[2024-01-22 08:33] VITALS: BP 124/80; PULSE 70; O2SAT 98
== END 2024-01-22 08:53 | disposition home or self-care (01) ==
PROVIDERS: PCP Family Medicine; Visit Provider Physician Assistant Medical
DX: H81.10 Benign paroxysmal vertigo, unspecified ear (principal)

== ENCOUNTER → 2024-01-22 08:26 | Outpatient (BNVA) | payer OTHER, SELFPAY | PROVIDERS: PCP Family Medicine; Visit Provider Physician Assistant Medical ==

== ENCOUNTER 2024-02-06 06:33 | Outpatient (REF) | payer OTHER, SELFPAY ==
[2024-02-06 11:03] LABS: MANUAL DIFF FLAG NO
[2024-02-06 11:06] LABS: Basophils Percent Auto 0.5 % (0-2); Eosinophils Absolute Auto 0.5 X10*3/uL (0.0-0.4); Eosinophils Percent Auto 7.8 % (0-4); Hematocrit 40.2 % (42.0-52.0); Imm Gran Abs Auto 0.02 X10*3/uL (0.00-0.03); Imm Gran Pct Auto 0.3 % (0.0-0.4); Immature Retic Fraction 11.7 % (2.3-13.4); Lymphocytes Absolute Auto 1.6 X10*3/uL (1.2-4.9); Lymphocytes Percent Auto 27.3 % (20-40); Mean Corpuscular HGB Conc 32.3 g/dl (31.0-36.0); Mean Corpuscular Hemoglobin 29.5 pg (27.0-33.0); Mean Corpuscular Volume 91.2 fL (80.0-98.0); Mean Platelet Volume 12.2 fL (9.4-12.4); Monocytes Absolute Auto 0.5 X10*3/uL (0.1-1.2); Monocytes Percent Auto 8.8 % (2-11); Neutrophils Absolute Auto 3.3 x10*3/uL (2.0-8.3); Neutrophils Percent Auto 55.3 % (45-73); Platelet Count 221 X10*3/uL (160-400); Red Blood Count 4.41 X10*6/uL (4.60-5.80); Red Cell Distribution Width 12.6 % (11.0-16.0); Retic HGB Equivalent 33.2 pg (30.0-35.0); Reticulocyte Percent 1.3 % (0.5-1.8); Reticulocytes Absolute 0.057 X10*6/uL (0.026-0.095); White Blood Count 5.9 X10*3/uL (4.8-10.8)
[2024-02-06 11:16] LABS: Anion Gap 9 (12-20); Blood Urea Nitrogen 16 mg/dL (9-16); Calcium 9.4 mg/dL (8.4-10.2); Carbon Dioxide 26 mmol/L (22-29); Chloride 110 mmol/L (96-108); Estimated Glomerular Filt Rate > 60; Glucose Random 92 mg/dL (60-115); Iron 60 mcg/dL (45-160); Percent Iron Saturation 23 % (15-50); Potassium 3.9 mmol/L (3.3-5.1); Sodium 141 mmol/L (135-145); Total Iron Binding Capacity 263 mcg/dL (228-428); Unsaturated Iron Binding 203 ug/dL
[2024-02-06 12:12] LABS: Folate 15.7 ng/mL (> or = 4.0); Vitamin B12 512 pg/mL (200-900)
[2024-02-09 08:58] LABS: Hematocrit 40.9 % (38.5-50.0); Hemoglobin 13.3 g/dL (13.2-17.1); MCH 29.6 pg (27.0-33.0); MCV 91.1 fL (80.0-100.0); RBC 4.49 Million/uL (4.20-5.80); RDW 12.5 % (11.0-15.0)
== END 2024-02-06 06:34 | disposition home or self-care (01) ==
LOC: HO.HMGCLDS 06:33
PROVIDERS: PCP Family Medicine; Visit Provider Family Medicine
DX: Z00.00 Encounter for general adult medical examination without abnormal findings (principal); D64.9 Anemia, unspecified; E53.8 Deficiency of other specified B group vitamins
CPT/HCPCS: 36415; 80048; 82607; 82746; 83020; 83540; 85014; 85018; 85025; 85041; 85045

== ENCOUNTER 2024-02-10 10:29 | Outpatient (AMB) | payer OTHER, SELFPAY ==
--- NOTE | 2024-02-10 10:38 | A.OFFPC_ITS ---
Vital Signs 02/10/24 10:40 Height 5 ft 10 in Weight 254 lb BMI 36.4 BP 110/60 Blood Pressure Location Rt brachial Position Sitting Respiration 16 Pulse 63 Pulse Source Pulse Oximeter Temp 97.3 F Temp Source Oral Pulse Oximetry (%) 96 Oxygen Delivery Method Room Air 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: f/u mild anemia, labs Intake Note: f/u labs Allergies aspirin Allergy (Mild, Verified 02/10/24 10:39) rash, swelling Medication List - Last Reconciled 02/10/24 by Jesus Mccord MD albuterol sulfate 90 mcg/actuation 2 puffs inhalation Q6H PRN amoxicillin-pot clavulanate 500-125 mg (Augmentin) 1 tab PO Q12H 10 days carbamide peroxide 6.5% (Debrox) 5 drps otic (ears) DAILY 4 days fluticasone propionate 50 mcg/actuation (Flonase Allergy Relief) 1 spray intranasal Q12H 30 days meclizine 25 mg PO TID PRN Tobacco use date assessed: 11/04/23 Dental Screening Dental Screen Date: 11/04/23 HPI f/u mild anemia, labs HPI Details 43 y/o male presents to f/u mild anemia, labs. Labs drawn 02/06/24. Reviewed labs with pt. Ongoing mild anemia. Iron levels are fine B12 levels are fine. Reports ongoing ear discomfort x1 month. [facility] Medical History (Reviewed 12/14/23 @ 16:50 by CORNELIA LangstonMARY [facility]) Pain of right great toe Asthma Vertigo Surgical History History of surgery of head History of testicular surgery Family History Father Heart disease No family history of mental disorder Mother Heart disease Diabetes Hypertension Seizures No family history of mental disorder Social History Household Members: Spouse and Family Housing: Apartment Alcohol intake: current Alcohol intake frequency: holidays/special occasions only Patient Tobacco Use Status: Never used Tobacco e-Cigarette/Vaping Use: Never Used service: No Current occupational status: employed 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 Cognitive needs: No Hearing needs: No Vision needs: No Questionnaire Thrive Questionnaire Date Thrive assessed: 01/13/24 I am a: Patient What is your living situation today?: I have a steady place to live Within the past 12 months, did the food you bought not last and you didn't have the money to get more?: Never true Within the past 12 months, did you worry whether your food would run out before you got money to buy more?: Sometimes True Do you have trouble paying for medicines?: No Do you have trouble getting transportation to medical appointments?: No Do you have trouble paying your heating and electricity bill?: I choose not to answer this question Do you have trouble taking care of your child, family member or friend?: No Do you have trouble with day-to-day activities such as bathing, preparing meals, shopping, managing finances, etc.?: No Are you currently unemployed and looking for a job?: No Are you interested in more education?: I choose not to answer this question Currently or been in a relationship where the following occur: No concerns reported THRIVE Score: 1 REJI-7 AMB Questionnaire REJI-7 Date REJI - 7 assessed: 11/04/23 Source: Developed by Drs. Norris Shah, Oksana Ventura, Anand Lakhani and colleagues, with an educational romario from [employer]. Physical exam (Primary Care) Vital Signs: Last Vital Signs Temp 97.3 F 02/10/24 10:40 Pulse 63 02/10/24 10:40 Resp 16 02/10/24 10:40 BP 110/60 02/10/24 10:40 Pulse Ox 96 02/10/24 10:40 Oxygen Delivery Method Room Air 02/10/24 10:40 BMI result Body Mass Index 36.4 Tobacco/Smoking Status: Tobacco use Status Tobacco use date assessed 11/04/23 02/10/24 10:43 Patient Tobacco Use Status Never used Tobacco 02/10/24 10:43 e-Cigarette/Vaping Use Never Used 02/10/24 10:43 Thrive Assessment: Date of Thrive Assessment Date Thrive assessed 01/13/24 02/10/24 10:43 Currently or been in a relationship where the following occur: No concerns reported Coding Level of Care Code Est Pt Level 3 (97486) Diagnoses Mild anemia D64.9 Other infective acute otitis externa of both ears H60.393 Chronicity: acute Laterality: bilateral Otitis externa type: other infective Assessment & Plan Assessment & Plan (1) Mild anemia: Code(s): D64.9 - Anemia, unspecified Category: Medical Plan: Persistent?mild?normocytic?anemia. Other?cell?lines?are?normal. Unclear?cause?though?he?has?had?some?microscopic hematuria?past.??Doubt?this?would?be?the?primary?underlying?cause. Will?recheck?again?few?months.??If?still?low?lower,?hematology. (2) Otitis externa: Code(s): H60.90 - Unspecified otitis externa, unspecified ear Category: Medical Qualifiers: Chronicity: acute Laterality: bilateral Otitis externa type: other infective Qualified Code(s): H60.393 - Other infective otitis externa, bilateral Plan: Patient?still?has?ongoing?ear?discomfort.??Has?had?some?vertigo?has?also Has?bilateral?TM?erythema?without?bulging?pus.??Also?mild?wax?impaction?left He?has?given?antibiotic?ear?drops?for?otitis?externa?in?the?recent?past?and?was? also?given?meclizine?for?some?vertigo.??No?longer?has?vertigo May?have?smoldering?otitis?media?or?sinus?infection.??Giving?him?script?for?Augm entin. He?can?also?use?some?Debrox?drops?for?wax?impaction. Orders: Orders Complete Blood Count Auto Diff Today D64.9 - Anemia, unspecified, Z00.00 - Encounter for general adult medical examination without abnormal findings Comprehensive Met. Panel Today D64.9 - Anemia, unspecified IRON PROFILE Today D64.9 - Anemia, unspecified Ferritin Today D64.9 - Anemia, unspecified UA and rflx microscopic Today D64.9 - Anemia, unspecified, Z00.00 - Encounter for general adult medical examination without abnormal findings Medications: New amoxicillin-pot clavulanate 500-125 mg (Augmentin) 1 tab PO Q12H 10 days 20 tabs 0RF carbamide peroxide 6.5% (Debrox) 5 drps otic (ears) DAILY 4 days 15 mL 1RF
[2024-02-10 10:40] VITALS: BP 110/60; PULSE 63; RESP 16; TEMP 36.3; O2SAT 96; BMI 36.4
== END 2024-02-10 11:05 | disposition home or self-care (01) ==
PROVIDERS: PCP Family Medicine; Visit Provider Family Medicine
DX: D64.9 Anemia, unspecified (principal); H60.393 Other infective otitis externa, bilateral

== ENCOUNTER 2024-04-30 07:01 | Outpatient (REF) | payer OTHER, SELFPAY ==
--- OUTSIDE RECORDS SUMMARY | 2024-04-30 07:04 | XMS_ITS | Clinical Summary ---
Author Organization [facility] Address [address] [place] [address] Phone Care Team Providers Care Inspector Semiconductor Wafer Name Role Phone Physician, Pcp Unknown Primary Care Provider Naz vailable Allergies Active Allergy Reactions Criticality Noted Date Comments Aspirin Anaphylaxis High 02/11/2022 Encounters Date Type Department Care Team Description 03/10/2024 5:28 PM EST - 03/10/2024 11:50 PM EST Emergency [facility] Emergency [address] [place] [address] Discharge Disposition: Home or Self Care from Last 3 Months Social History Tobacco Use Types Packs/Day Years Used Date Smoking Tobacco: Never Assessed Sex and Gender Information Value Date Recorded Sex Assigned at Not on file Legal Sex Male 1:55 AM EST Gender Identity Not on file Sexual Orientation Not on file Obstetrics History Last Filed Vital Signs Vital Sign Reading Time Taken Comments Blood Pressure 107/79 03/10/2024 3:20 PM EST Pulse 65 03/10/2024 3:20 PM EST Temperature 37.4 ??C (99.3 ??F) 03/10/2024 3:20 PM ES T Respiratory Rate 16 03/10/2024 3:20 PM EST Oxygen Saturation 100% 03/10/2024 3:20 PM EST Inhaled Oxygen Concentration - - Weight 113 kg (250 lb) 03/10/2024 3:20 PM EST Height 177.8 cm (5' 10 ) 03/10/2024 3:20 PM EST Body Mass Index 35.87 03/10/2024 3:20 PM EST Plan of Treatment Health Maintenance Due Date Last Done Comments Hepatitis B Vaccines (1 of 3 - 19+ 3-dose series) 01/01/2000 Pneumococcal Vaccine: Pediatrics (0 to 5 Years) and At-Risk Patients (6 to 64 Years) (2 of 2 - PCV) 07/21/2018 07/21/2017 Cholesterol Screening (Lipid Panel) 02/16/2022 Depression Screening 02/16/2022 HIV Screening 02/16/2022 Hepatitis C Screening 02/16/2022 Social Influencers of Health Screening 02/16/2022 DTaP,Tdap,and Td Vaccines (2 - Td or Tdap) 02/17/2022 02/18/2012 COVID-19 Vaccine (3 - 2023-2 5 season) 2023 11/26/2020, 07/09/2020 Influenza Vaccine (#1) 2023 02/18/2012 HIB Vaccines Aged Out No longer eligi ble based on patient's age to complete this topic HPV Vaccines Aged Out No longer eligi ble based on patient's age to complete this topic Hepatitis A Vaccines Aged Out No long er eligible based on patient's age to complete this topic IPV Vaccines Aged Out No longer eligi ble based on patient's age to complete this topic MMR Vaccines Aged Out No longer eligi ble based on patient's age to complete this topic Meningococcal ACWY Vaccine Aged Out N o longer eligible based on patient's age to complete this topic Meningococcal B Vacine Aged Out No lo nger eligible based on patient's age to complete this topic RSV Immunization Patients Under 20 months Aged Out No longer eligible b ased on patient's age to complete this topic Varicella Vaccines Aged Out No longer eligible based on patient's age to complete this topic Procedures Procedure Name Priority Date/Time Associated Diagnosis Comments RESPIRATORY VIRUS PANEL MOLECULAR STUDY STAT 03/10/2024 3:24 PM EST from Last 3 Months Results * (ABNORMAL) Respiratory virus panel molecular study (03/10/2024 3:24 PM EST) Pathologist [facility] Adenovirus Detection by PCR Not Detected Not Detected LAB MICROBIOLOGY METHOD 03/10/2024 4:53 PM EST [facility] Influenza B PCR Not Detected Not Detected LAB MICROBIOLOGY METHOD 03/10/2024 4:53 PM EST [facility] Coronavirus 229E Not Detected Not Detected LAB MICROBIOLOGY METHOD 03/10/2024 4:53 PM [facility] Coronavirus HKU1 Not Detected Not Detected LAB MICROBIOLOGY METHOD 03/10/2024 4:53 PM [facility] Coronavirus OC43 Not Detected Not Detected LAB MICROBIOLOGY METHOD 03/10/2024 4:53 PM [facility] Coronavirus NL63 Not Detected Not Detected LAB MICROBIOLOGY METHOD 03/10/2024 4:53 PM [facility] Parainfluenza Virus 1 Not Detected Not Detected LAB MICROBIOLOGY METHOD 03/10/2024 4:53 PM [facility] Parainfluenza Virus 2 Not Detected Not Detected LAB MICROBIOLOGY METHOD 03/10/2024 4:53 PM [facility] Parainfluenza Virus 3 Not Detected Not Detected LAB MICROBIOLOGY METHOD 03/10/2024 4:53 PM [facility] Parainfluenza Virus 4 Not Detected Not Detected LAB MICROBIOLOGY METHOD 03/10/2024 4:53 PM [facility] RSV PCR Not Detected Not Detected LAB MICROBIOLOGY METHOD 03/10/2024 4:53 PM [facility] Human Metapneumovirus A and B Not Detected Not Detected LAB MICROBIOLOGY METHOD 03/10/2024 4:53 PM [facility] Rhinovirus/Entero virus Detected(A ) Not Detected LAB MICROBIOLOGY METHOD 03/10/2024 4:53 PM [facility] Bordetella pertussis Not Detected Not Detected LAB MICROBIOLOGY METHOD 03/10/2024 4:53 PM [facility] Bordetella parapertussis Not Detected Not Detected LAB MICROBIOLOGY METHOD 03/10/2024 4:53 PM [facility] Influenza A H1N1 PDM09 Detected(A ) Not Detected LAB MICROBIOLOGY METHOD 03/10/2024 4:53 PM [facility] Mycoplasma pneumo by PCR Not Detected Not Detected LAB MICROBIOLOGY METHOD 03/10/2024 4:53 PM [facility] Chlamydia pneumoniae Not Detected Not Detected LAB MICROBIOLOGY METHOD 03/10/2024 4:53 PM EST [facility] SARS COV-2 Not Detected Not Detected LAB MICROBIOLOGY METHOD 03/10/2024 4:53 PM EST [facility] Swab Both anterior nares / Unknown Non-blood Collection / Unknown 03/10/2024 3:24 PM EST 03/10/2024 3:59 PM EST Narrative [facility] - 03/10/2024 4:53 PM EST Testing was performed using the [employer] Respiratory Pathogen PCR Assay. All results must be correlated with the clinical findings. Results should not be used as the sole basis for diagnosis. False Negative results may occur from the presence of sequence variants in the region targeted by the assay or the presence of inhibitors. Results may be affected by concurrent antiviral/antimicrobial therapy or levels of organisms that are below the limit of detection. Marky Montana MD LAB MICROBIOLOGY - GENERAL MARLEY CHANG Final Result [facility] [address] [place] [address], from Last 3 Months Insurance [facility] [employer] Care Teams Inspector Semiconductor Wafer Relationship Specialty Start Date End Date Physician, Pcp Unknown PCP - General 03/10/24
--- OUTSIDE RECORDS SUMMARY | 2024-04-30 07:04 | XMS_ITS | Clinical Summary ---
Author Organization [facility] Address [address] [place] [address] Care Team Providers Care Placement Coordinator Name Role Phone Unavailable Primary Care Provider Unavailabl e Allergies Active Allergy Reactions Criticality Noted Date Comments Aspirin 10/02/2017 Medications No known medications Active Problems No known active problems Social History Tobacco Use Types Packs/Day Years Used Date Smoking Tobacco: Never Smokeless Tobacco: Never Sex and Gender Information Value Date Recorded Sex Assigned at Not on file Legal Sex Male 11:34 AM EDT Gender Identity Not on file Sexual Orientation Not on file Last Filed Vital Signs Vital Sign Reading Time Taken Comments Blood Pressure 105/70 10/02/2017 11:43 AM EDT Pulse 60 10/02/2017 11:43 AM EDT Temperature 36.7 ??C (98.1 ??F) 10/02/2017 11:43 AM E DT Respiratory Rate 17 10/02/2017 11:43 AM EDT Oxygen Saturation - - Inhaled Oxygen Concentration - - Weight - - Height - - Body Mass Index - - Plan of Treatment Health Maintenance Due Date Last Done Comments Hepatitis C Screening 1980 DTaP/Tdap/Td (1 - Tdap) 1998 Hep B (1 of 3 - 19+ 3-dose series) 01/01/2000 COVID-19 Vaccine ( - 2023-2 5 season) 2023 Influenza (#1) 2023 Zoster (Shingrix) (1 of 2) 2030 HPV Vaccine Aged Out No longer eligi ble based on patient's age to complete this topic Hep A Aged Out No longer eligi ble based on patient's age to complete this topic Hib Aged Out No longer eligi ble based on patient's age to complete this topic Meningococcal ACWY Aged Out No longer eligible based on patient's age to complete this topic Pneumococcal Aged Out No longer eligi ble based on patient's age to complete this topic Insurance * Guarantor: [id number] [employer]AFF[employer] Account Type Relation to Patient Date of Phone Billing Address [employer] [address] [place] [id number] [employer] . [address] [place] [id number]
--- OUTSIDE RECORDS SUMMARY | 2024-04-30 07:04 | XMS_ITS | Encounter Summary ---
Author Organization [facility] Address [address] [place] [address] Care Team Providers Care Heavy Mobile Equipment Repairer Name Role Phone Unavailable Primary Care Provider Unavailabl e Encounter Details Date Type Department Care Team (Late st Contact Info) Description 08/04/2019 Lab Requisition [facility] [address] [place] [address] Cornel Snow MD [address] [place] [address] Encounter for screening for other viral diseases Social History Tobacco Use Types Packs/Day Years Used Date Smoking Tobacco: Never Assessed Sex and Gender Information Value Date Recorded Sex Assigned at Not on file Legal Sex Male 7:13 PM EDT Gender Identity Not on file Sexual Orientation Not on file documented as of this encounter Plan of Treatment Not on file documented as of this encounter Procedures Procedure Name Priority Date/Time Associated Diagnosis Comments SARS COV-2 (COVID-19) RNA-[facility] ([facility]) Routine 08/04/2019 7:14 PM EDT Encounter for screening for other viral diseases documented in this encounter Results * SARS CoV-2 (COVID-19) PCR - [facility] ([facility]) (08/04/2019 7:14 PM EDT) SARS-CoV-2 RNA (COVID-19) Not Detected Not Detected 08/05/2019 6:53 PM EDT [facility] Comment: Negative results do not preclude COVID-19 and should not be the sole basis for patient management decisions. Clinical disease and risk factors should also be considered. This real-time RT-PCR assay was developed by [employer] and targets three regions of the SARS-CoV-2 genome: orf1ab, spike (S) gene, nucleocapsid (N) gene. It has been validated for clinical use by the [facility]. TaqPath? ? COVID-19 Combo Kit is for use only under Emergency Use Authorization (EUA). Testing is limited to laboratories certified under the Clinical Laboratory Improvement Amendments of 1988 (CLIA), 42 U.S.C. ??263a, to perform high complexity tests. Note that falsely negative results can be due to poor sample quality, suboptimal sample type, low viral load, and viral genome variability. Fact Sheet for Healthcare Providers: https://www.fda.gov/media/225804/download Fact Sheet for Patients: https://www.fda.gov/media/558110/download Test performance has not been evaluated in asymptomatic patients. Test ordering and result interpretation is at the discretion of the ordering provider. Viral NASOPHARYNGEAL STRUCTURE / Unknown 08/04/2019 7:14 PM EDT 08/04/2019 7:14 PM EDT Cornel Snow MD MICROBIOLOGY - GENERAL OR DERABLES Final Result [facility] [address] [place] [address], [facility] [phone] documented in this encounter Visit Diagnoses Diagnosis Encounter for screening for other viral diseases documented in this encounter Additional Health Concerns Infection Onset Date Last Indicated Resolved Time R/O COVID-19 08/04/2019 08/04/2019 08/05/2019 6:53 PM EDT documented as of this encounter
--- OUTSIDE RECORDS SUMMARY | 2024-04-30 07:04 | XMS_ITS | Clinical Summary ---
Author Organization [address] Address [address] [place] [id number] Care Team Providers Care Polishing Machine Operator Helper Name Role Phone Unavailable Primary Care Provider Unavailabl e Social History Tobacco Use Types Packs/Day Years Used Date Smoking Tobacco: Never Assessed Sex and Gender Information Value Date Recorded Sex Assigned at Not on file Legal Sex Male 7:13 PM EDT Gender Identity Not on file Sexual Orientation Not on file Plan of Treatment Health Maintenance Due Date Last Done Comments HIV screening 1993 Hepatitis C screening 1998 Tetanus adult (Td q 10,TDAP once) 2000 Lipid disorder screening 2020 Influenza vaccine 10/15/2023 Covid-19 vaccine series ( - 2023-25 season) 2023 RSV Discussion (1 - 1-dose 7 5+ series) 01/01/2056 Meningococcal Vaccine Aged Out No juan maximino eligible based on patient's age to complete this topic Pneumococcal Vaccine (2 - 49 years) Aged Out No longer eligible based on patient's age to complete this topic
[2024-04-30 11:20] LABS: MANUAL DIFF FLAG NO
[2024-04-30 11:27] LABS: Basophils Percent Auto 0.6 % (0-2); Eosinophils Absolute Auto 0.6 X10*3/uL (0.0-0.4); Eosinophils Percent Auto 9.4 % (0-4); Hematocrit 41.3 % (42.0-52.0); Hemoglobin 13.4 g/dl (14.0-18.0); Imm Gran Abs Auto 0.03 X10*3/uL (0.00-0.03); Imm Gran Pct Auto 0.5 % (0.0-0.4); Lymphocytes Absolute Auto 1.8 X10*3/uL (1.2-4.9); Lymphocytes Percent Auto 28.7 % (20-40); Mean Corpuscular HGB Conc 32.4 g/dl (31.0-36.0); Mean Corpuscular Hemoglobin 29.3 pg (27.0-33.0); Mean Corpuscular Volume 90.2 fL (80.0-98.0); Mean Platelet Volume 12.1 fL (9.4-12.4); Monocytes Absolute Auto 0.5 X10*3/uL (0.1-1.2); Monocytes Percent Auto 8.3 % (2-11); Neutrophils Absolute Auto 3.3 x10*3/uL (2.0-8.3); Neutrophils Percent Auto 52.5 % (45-73); Platelet Count 223 X10*3/uL (160-400); Red Blood Count 4.58 X10*6/uL (4.60-5.80); White Blood Count 6.4 X10*3/uL (4.8-10.8)
[2024-04-30 11:40] LABS: Appearance Urine Clear; Color Urine Yellow; Glucose Urine UA Negative (Negative); Leukocyte Esterase Urine Negative (Negative); Nitrite Urine Negative (Negative); PH 5.5 (5.0-9.0); Specific Gravity - Urine >= 1.030 (1.005-1.025); UMIC TRIGGER UA YES; Urine Blood Trace (Negative); Urine Ketones Negative (Negative); Urine Protein Negative (Neg-Trace)
[2024-04-30 11:47] LABS: Alanine Aminotransferase 25 U/L (0-40); Albumin Level 4.1 g/dL (3.5-5.0); Alkaline Phosphatase 50 U/L (39-117); Anion Gap 10 (12-20); Aspartate Amino Transferase 31 U/L (5-37); Bacteria Urine None Seen (None Seen); Bilirubin Total 0.5 mg/dL (0.0-1.0); Blood Urea Nitrogen 17 mg/dL (9-16); Calcium 9.1 mg/dL (8.4-10.2); Carbon Dioxide 23 mmol/L (22-29); Chloride 113 mmol/L (96-108); Estimated Glomerular Filt Rate > 60; Glucose Random 84 mg/dL (60-115); Hyaline Casts Urine 0-2 /LPF (0-2); Iron 62 mcg/dL (45-160); Percent Iron Saturation 23 % (15-50); Potassium 4.1 mmol/L (3.3-5.1); RBC Urine 0-2 /HPF (0-2); Sodium 142 mmol/L (135-145); Squamous Epithelial Cell Urine 0-2 /HPF (0-2); Total Iron Binding Capacity 267 mcg/dL (228-428); Total Protein 7.7 g/dL (6.5-8.0); Unsaturated Iron Binding 205 ug/dL; WBC Urine 0-5 /HPF (0-5)
[2024-04-30 12:04] LABS: Ferritin 326 ng/mL (20-250)
== END 2024-04-30 07:02 | disposition home or self-care (01) ==
LOC: HO.HMGCLDS 07:01
PROVIDERS: PCP Family Medicine; Visit Provider Family Medicine
DX: Z00.00 Encounter for general adult medical examination without abnormal findings (principal); D64.9 Anemia, unspecified
CPT/HCPCS: 36415; 80053; 81001; 82728; 83540; 85025

== ENCOUNTER 2024-05-13 13:32 | Outpatient (AMB) | payer OTHER, SELFPAY ==
--- NOTE | 2024-05-13 13:38 | A.OFFPC_ITS ---
Vital Signs 05/13/24 13:47 Height 5 ft 10 in Weight 255 lb BMI 36.6 BP 110/78 Blood Pressure Location Rt brachial Position Sitting Respiration 14 Pulse 66 Pulse Source Pulse Oximeter Temp 98.0 F Temp Source Oral Pulse Oximetry (%) 96 Oxygen Delivery Method Room Air 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: f/u mild anemia Intake Note: follow up lab review Wire Rope Sales Representative Required: Yes Wire Rope Sales Representative Language: Upsetter Setter Up Name: [email or web address] [id number] Information Interpreted: clinical only Allergies aspirin Allergy (Mild, Verified 05/13/24 13:38) rash, swelling Tobacco use date assessed: 11/04/23 Dental Screening Dental Screen Date: 11/04/23 HPI f/u mild anemia HPI Details 43 y/o male presents to f/u mild anemia. Labs drawn 04/30/24. Reviewed labs with pt. Ongoing mild anemia, improving. HPI Comments History of Present Illness Details Documentation assistance for Jesus Mccord MD, was provided by Romain Carrasco,? Siphon Operator on 05/13/2024 at 2:05 PM EST. I, Dr. Mccord, have read, observed, and verified documentation. ?? 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 Norris Shah, Oksana Ventura, Anand Lakhani and colleagues, with an educational romario from [employer]. Review of Systems Const Denies chills, Denies fatigue, Denies fever(s), Denies headache(s) and Denies weakness ENT Denies dizziness and Denies headache(s) Card Denies dyspnea Resp Denies cough, Denies dyspnea, Denies wheezing and Denies other (shortness of breath) Musc Denies numbness and Denies tingling Neuro Denies dizziness, Denies headache(s), Denies numbness, Denies tingling and Denies weakness Psych Denies anxiety and Denies depression Endo Denies fatigue Aller/Immun Denies wheezing Physical exam (Primary Care) Vital Signs: Last Vital Signs Temp 98.0 F 05/13/24 13:47 Pulse 66 05/13/24 13:47 Resp 14 05/13/24 13:47 BP 110/78 05/13/24 13:47 Pulse Ox 96 05/13/24 13:47 Oxygen Delivery Method Room Air 05/13/24 13:47 BMI result Body Mass Index 36.6 Tobacco/Smoking Status: Tobacco use Status Tobacco use date assessed 11/04/23 05/13/24 13:50 Patient Tobacco Use Status Never used Tobacco 05/13/24 13:50 e-Cigarette/Vaping Use Never Used 05/13/24 13:50 Thrive Assessment: Date of Thrive Assessment Date Thrive assessed 01/13/24 05/13/24 13:50 Const General: well developed; No acute distress Nutritional Appearance: well nourished Orientation/consciousness: patient oriented x3 HENMT Head: Yes normocephalic and Yes atraumatic Eyes General: appearance normal, both eyes and all related structures Pupils: Equal, round and reactive pupils present EOM: EOMs intact bilaterally Resp Effort & Inspection: normal respiratory effort Neuro General: patient oriented x3 and gait normal Cranial nerves: Yes Equal, round and reactive pupils present Psych Affect: normal affect Coding Level of Care Code Est Pt Level 3 (56595) Diagnoses Mild anemia D64.9 Obesity E66.9 Assessment & Plan Assessment & Plan (1) Mild anemia: Code(s): D64.9 - Anemia, unspecified Category: Medical Plan: Ongoing/longstanding?mild?normocytic?anemia. His?other?cell?lines?are?normal. Iron?levels?are?normal?though?his?ferritin?is?high. However,?patient?notes?that?was?feeling?sick?on?a?day?when?had?ferritin?levels?t ested. Patient?does?not?smoke.??Only?drinks?rarely. No?inflammatory?diseases Unclear?cause Referred?to?Hematology-oncology (2) Obesity: Code(s): E66.9 - Obesity, unspecified Category: Medical Plan: Patient?is?having?difficulty?with?weight?loss Referred?to?nurse?navigator?for?nutrition?counseling Orders: Referrals Hematology & Oncology Referral D64.9 - Anemia, unspecified Nurse Navigator Referral E66.9 - Obesity, unspecified
[2024-05-13 13:47] VITALS: BP 110/78; PULSE 66; RESP 14; TEMP 36.7; O2SAT 96; BMI 36.6
--- OUTSIDE RECORDS SUMMARY | 2024-05-13 15:41 | XMS_ITS | Encounter Summary ---
Author Organization [facility] Address [address] [place] [address] Care Team Providers Care Clinical Partner Name Role Phone Unavailable Primary Care Provider Unavailabl e Encounter Details Date Type Department Care Team (Late st Contact Info) Description 08/04/2019 Lab Requisition [facility] Specimens [address] [place] [address] Cornel Snow MD [address] [place] [address] Encounter for screening for other [...] Date/Time Associated Diagnosis Comments SARS COV-2 (COVID-19) RNA-[facility] ([facility]) Routine 08/04/2019 7:14 PM EDT Encounter for screening for other viral diseases documented in this encounter Results * SARS CoV-2 (COVID-19) PCR - [facility] ([facility]) (08/04/2019 7:14 PM EDT) SARS-CoV-2 RNA (COVID-19) Not Detected Not Detected 08/05/2019 6:53 PM EDT [facility] Comment: Negative results do not preclude COVID-19 and should not be the sole basis for patient management decisions. Clinical disease and risk factors should also be considered. This real-time RT-PCR assay was developed by [employer] and targets three regions of the SARS-CoV-2 genome: orf1ab, spike (S) gene, nucleocapsid (N) gene. It has been validated for clinical use by the [facility]. TaqPath? ? COVID-19 Combo [...] genome variability. Fact Sheet for Healthcare Providers: https://www.fda.gov/media/250063/download Fact Sheet for Patients: https://www.fda.gov/media/793547/download Test performance has not been evaluated in asymptomatic patients. Test ordering and result interpretation is at the discretion of the ordering provider. Viral NASOPHARYNGEAL STRUCTURE / Unknown 08/04/2019 7:14 PM EDT 08/04/2019 7:14 PM EDT Cornel Snow MD MICROBIOLOGY - GENERAL OR DERABLES Final Result [facility] [address] [place] [address], [facility] [phone] documented in this encounter Visit Diagnoses Diagnosis Encounter for screening for other viral diseases documented in this encounter Additional Health Concerns Infection Onset Date Last Indicated Resolved Time R/O COVID-19 08/04/2019 08/04/2019 08/05/2019 6:53 PM EDT documented as of this encounter
--- OUTSIDE RECORDS SUMMARY | 2024-05-13 15:41 | XMS_ITS | Clinical Summary ---
Author Organization [facility] Address [address] [place] [address] Care Team Providers Care Clother In Name Role Phone Unavailable Primary Care Provider [...] to complete this topic Insurance * Guarantor: [id number] STAFFING Account Type Relation to Patient Date of Phone Billing Address Worker's Comp [address] [place] [id number] WORKERS COMPENSATION . [address] [place] [id number]
--- OUTSIDE RECORDS SUMMARY | 2024-05-13 15:41 | XMS_ITS | Clinical Summary ---
Author Organization [address] Address [address] [place] [id number] Care Team Providers Care Boarding House Manager Name Role Phone Unavailable Primary Care Provider [...]
--- OUTSIDE RECORDS SUMMARY | 2024-05-13 15:41 | XMS_ITS | Clinical Summary ---
Author Organization [facility] Address [address] [place] [address] Phone Care Team Providers Care Cota Name Role Phone Physician, Pcp Unknown Primary Care Provider Naz vailable Allergies Active Allergy Reactions Criticality Noted Date Comments Aspirin Anaphylaxis High 02/11/2022 Encounters Date Type Department Care Team Description 03/10/2024 5:28 PM EST - 03/10/2024 11:50 PM EST Emergency [facility] Emergency [address] [place] [address] Discharge Disposition: Home or Self [...] molecular study (03/10/2024 3:24 PM EST) Pathologist [facility] Adenovirus Detection by PCR Not Detected Not Detected LAB MICROBIOLOGY METHOD 03/10/2024 4:53 PM EST [facility] Influenza B PCR Not Detected Not Detected LAB MICROBIOLOGY METHOD 03/10/2024 4:53 PM EST [facility] Coronavirus 229E Not Detected Not Detected LAB MICROBIOLOGY METHOD 03/10/2024 4:[address] [facility] Coronavirus HKU1 Not Detected Not Detected LAB MICROBIOLOGY METHOD 03/10/2024 4:[address] [facility] Coronavirus OC43 Not Detected Not Detected LAB MICROBIOLOGY METHOD 03/10/2024 4:[address] [facility] Coronavirus NL63 Not Detected Not Detected LAB MICROBIOLOGY METHOD 03/10/2024 4:[address] [facility] Parainfluenza Virus 1 Not Detected Not Detected LAB MICROBIOLOGY METHOD 03/10/2024 4:[address] [facility] Parainfluenza Virus 2 Not Detected Not Detected LAB MICROBIOLOGY METHOD 03/10/2024 4:[address] [facility] Parainfluenza Virus 3 Not Detected Not Detected LAB MICROBIOLOGY METHOD 03/10/2024 4:[address] [facility] Parainfluenza Virus 4 Not Detected Not Detected LAB MICROBIOLOGY METHOD 03/10/2024 4:[address] [facility] RSV PCR Not Detected Not Detected LAB MICROBIOLOGY METHOD 03/10/2024 4:[address] [facility] Human Metapneumovirus A and B Not Detected Not Detected LAB MICROBIOLOGY METHOD 03/10/2024 4:[address] [facility] Rhinovirus/Entero virus Detected(A ) Not Detected LAB MICROBIOLOGY METHOD 03/10/2024 4:[address] [facility] Bordetella pertussis Not Detected Not Detected LAB MICROBIOLOGY METHOD 03/10/2024 4:[address] [facility] Bordetella parapertussis Not Detected Not Detected LAB MICROBIOLOGY METHOD 03/10/2024 4:[address] [facility] Influenza A H1N1 PDM09 Detected(A ) Not Detected LAB MICROBIOLOGY METHOD 03/10/2024 4:[address] [facility] Mycoplasma pneumo by PCR Not Detected Not Detected LAB MICROBIOLOGY METHOD 03/10/2024 4:[address] [facility] Chlamydia pneumoniae Not Detected Not Detected LAB MICROBIOLOGY METHOD 03/10/2024 4:53 PM EST [facility] SARS COV-2 Not Detected Not Detected LAB MICROBIOLOGY METHOD 03/10/2024 4:53 PM EST [facility] Swab Both anterior nares / Unknown Non-blood Collection / Unknown 03/10/2024 3:24 PM EST 03/10/2024 3:59 PM EST Narrative [facility] - 03/10/2024 4:53 PM EST Testing was performed using the [employer] Respiratory Pathogen PCR Assay. All results must [...] MICROBIOLOGY - GENERAL MARLEY CHANG Final Result [facility] [address] [place] [address], from Last 3 Months Insurance [facility] PUBLIC [employer] Care Teams Cota Relationship Specialty Start Date End Date Physician, Pcp Unknown PCP - General 03/10/24
== END 2024-05-13 14:25 | disposition home or self-care (01) ==
LOC: HO.HMCFM 13:32
PROVIDERS: PCP Family Medicine; Visit Provider Family Medicine
DX: D64.9 Anemia, unspecified (principal); E66.9 Obesity, unspecified; Z68.36 Body mass index [BMI] 36.0-36.9, adult

== ENCOUNTER → 2024-05-13 13:32 | Outpatient (BNVA) | payer OTHER, SELFPAY | PROVIDERS: PCP Family Medicine; Visit Provider Family Medicine ==

== ENCOUNTER → 2024-05-23 15:15 | Outpatient (BNVA) | payer OTHER, SELFPAY | PROVIDERS: PCP Family Medicine; Visit Provider Surgery ==

== ENCOUNTER 2024-05-30 08:06 | Outpatient (AMB) | payer OTHER, SELFPAY ==
--- OUTSIDE RECORDS SUMMARY | 2024-05-30 08:10 | XMS_ITS | Clinical Summary ---
Author Organization [facility] Address [address] [place] [address] Phone Care Team Providers Care Cartoon Artist Name Role Phone Physician, Pcp Unknown Primary Care Provider Naz vailable Allergies Active Allergy Reactions Criticality Noted Date Comments Aspirin Anaphylaxis High 02/11/2022 Encounters Date Type Department Care Team Description 03/10/2024 5:28 PM EST - 03/10/2024 11:50 PM EST Emergency [facility] Emergency [address] [place] [address] Discharge Disposition: Home or Self [...] molecular study (03/10/2024 3:24 PM EST) Pathologist [facility] Adenovirus Detection by PCR Not Detected Not Detected LAB MICROBIOLOGY METHOD 03/10/2024 4:53 PM EST [facility] Influenza B PCR Not Detected Not Detected LAB MICROBIOLOGY METHOD 03/10/2024 4:53 PM EST [facility] Coronavirus 229E Not Detected Not Detected LAB MICROBIOLOGY METHOD 03/10/2024 4:53 PM [facility] Coronavirus HKU1 Not Detected Not Detected LAB MICROBIOLOGY METHOD 03/10/2024 4:53 PM [facility] Coronavirus OC43 Not Detected Not Detected LAB MICROBIOLOGY METHOD 03/10/2024 4:53 PM [facility] Coronavirus NL63 Not Detected Not Detected LAB MICROBIOLOGY METHOD 03/10/2024 4:53 PM [facility] Parainfluenza Virus 1 Not Detected Not Detected LAB MICROBIOLOGY METHOD 03/10/2024 4:53 PM [facility] Parainfluenza Virus 2 Not Detected Not Detected LAB MICROBIOLOGY METHOD 03/10/2024 4:53 PM [facility] Parainfluenza Virus 3 Not Detected Not Detected LAB MICROBIOLOGY METHOD 03/10/2024 4:53 PM [facility] Parainfluenza Virus 4 Not Detected Not Detected LAB MICROBIOLOGY METHOD 03/10/2024 4:53 PM [facility] RSV PCR Not Detected Not Detected LAB MICROBIOLOGY METHOD 03/10/2024 4:53 PM [facility] Human Metapneumovirus A and B Not Detected Not Detected LAB MICROBIOLOGY METHOD 03/10/2024 4:53 PM [facility] Rhinovirus/Entero virus Detected(A ) Not Detected LAB MICROBIOLOGY METHOD 03/10/2024 4:53 PM [facility] Bordetella pertussis Not Detected Not Detected LAB MICROBIOLOGY METHOD 03/10/2024 4:53 PM [facility] Bordetella parapertussis Not Detected Not Detected LAB MICROBIOLOGY METHOD 03/10/2024 4:53 PM [facility] Influenza A H1N1 PDM09 Detected(A ) Not Detected LAB MICROBIOLOGY METHOD 03/10/2024 4:53 PM [facility] Mycoplasma pneumo by PCR Not Detected Not Detected LAB MICROBIOLOGY METHOD 03/10/2024 4:53 PM [facility] Chlamydia pneumoniae Not Detected Not Detected LAB MICROBIOLOGY METHOD 03/10/2024 4:53 PM EST [facility] SARS COV-2 Not Detected Not Detected LAB MICROBIOLOGY METHOD 03/10/2024 4:53 PM EST [facility] Swab Both anterior nares / Unknown Non-blood Collection / Unknown 03/10/2024 3:24 PM EST 03/10/2024 3:59 PM EST Narrative [facility] - 03/10/2024 4:53 PM EST Testing was performed using the [employer] Respiratory Pathogen PCR Assay. All results must [...] MICROBIOLOGY - GENERAL MARLEY CHANG Final Result [facility] [address] [place] [address], from Last 3 Months Insurance [facility] PUBLIC PLANS Care Teams Cartoon Artist Relationship Specialty Start Date End Date Physician, Pcp Unknown PCP - General 03/10/24
--- OUTSIDE RECORDS SUMMARY | 2024-05-30 08:10 | XMS_ITS | Clinical Summary ---
Author Organization [facility] Address [address] [place] [address] Care Team Providers Care Manager Msw Name Role Phone Unavailable Primary Care Provider [...] to complete this topic Insurance * Guarantor: [id number] STAFFING Account Type Relation to Patient Date of Phone Billing Address Worker's Comp [address] [place] [id number] WORKERS COMPENSATION . [address] [place] [phone]
--- NOTE | 2024-05-30 08:39 | A.OFFVIS_ITS ---
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* Middle School Baseball Coach Required: Yes Middle School Baseball Coach Services: Middle School Baseball Coach Present Information Interpreted: clinical only Allergies aspirin Allergy (Mild, Verified 05/30/24 08:42) rash, swelling Medication List - Last Reconciled 05/30/24 by Sidney Barrientos MD albuterol sulfate 90 mcg/actuation 2 puffs inhalation Q6H PRN fluticasone propionate 50 mcg/actuation (Flonase Allergy Relief) 1 spray intranasal Q12H 30 days HPI HPI TV CASE MANAGEMENT MANAGER SWL vs MWL BMI 36.4 *CIGARETTE FILTER INSPECTOR*: Details: Start time: 8.46am, End time: 9.36am ?I spent 45 minutes speaking with the patient on the phone plus an additional 5 minutes reviewing and updating records for a total of 50 minutes HPI Comments Details: Previous weight loss efforts: Exercise, self diets Wakes up: 2.30am, Sleeps: 9pm Breakfast: 3am (sandwich) Lunch: 9am (rice,, chicken, beans) Dinner: 5pm (same as lunch) Snacks: 6am (fruits) Exercise: none Beverages: Coffee: ( 1 cup/d with milk and sugar), tea: none, soda: 1-2/wk, juice: 2/wk, ETOH: 1/month PFSH Medical History (Updated 05/30/24 @ 09:34 by Sidney Barrientos MD) Back pain Obesity Pain of right great toe Asthma Vertigo Surgical History History of surgery of head History of testicular surgery Family History Father Heart disease No family history of mental disorder Mother Heart disease Diabetes Hypertension Seizures No family history of mental disorder Social History Household Members: Spouse and Family Housing: Apartment Alcohol intake: current Alcohol intake frequency: holidays/special occasions only Patient Tobacco Use Status: Never used Tobacco e-Cigarette/Vaping Use: Never Used service: No Current occupational status: employed 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 Cognitive needs: No Hearing needs: No Vision needs: No Telehealth Telehealth Telehealth Platform: Telephone Location of provider rendering services: practice address Location of patient: address on file Patient Identification confirmed using: Name, : Yes Telehealth method: voice only Patient verbally consented to treatment: Yes Patient verbally consented to billing insurance company: Yes Patient informed of any privacy concerns related to visit: Yes Minutes spent on Phone/Video with Pt.: 50 Assessment & Plan Assessment & Plan (1) Obesity: Code(s): E66.9 - Obesity, unspecified Category: Medical Qualifiers: Obesity type: due to excess calories Obesity classification: adult class 2 (BMI 35 - 39.9) Serious obesity comorbidity presence: without serious comorbidity Body mass index: BMI 36.0-36.9 Qualified Code(s): E66.812 - Obesity, class 2; E66.09 - Other obesity due to excess calories; Z68.36 - Body mass index [BMI] 36.0-36.9, adult Plan: 1. Please send me weight measurements with your body composition scale weekly 2. Do aerobic exercise (outside walking, or treadmill, or elliptical or stationary bike) and do 150 minutes of aerobic exercise per week, or 22 minutes per day. 3. Start the Zepbound when you get your body composition scale once a week. Use a calorie-counting callie to track your daily calories to create a calorie deficit with a target of consuming 6234-1505 calories per day. We discussed the potential side effects of Zepbound such as nausea, vomiting, abdominal pain, diarrhea and constipation and you will need to contact me if any of these symptoms occur or for any other new symptom you may experience ?4. Goal is to lose at least 1.5-2lbs per week 5. Goal to lose at least 10% of your weight, which is about 25lbs. Minimum weight goal: 228lbs before surgery Medications: New tirzepatide (weight loss) (Zepbound) for 4 weeks 2.5 mg (0.5 mL) subcut QWEEK 2 mL 0RF E66.9 - Obesity, unspecified, Z68.36 - Body mass index [BMI] 36.0-36.9, adult
== END 2024-05-30 09:36 | disposition home or self-care (01) ==
LOC: HO.HBS 08:06
PROVIDERS: PCP Family Medicine; Visit Provider Surgery
DX: E66.812 Obesity, class 2 (principal); Z68.36 Body mass index [BMI] 36.0-36.9, adult
CPT/HCPCS: 98010

== ENCOUNTER → 2024-05-30 08:06 | Outpatient (BNVA) | payer OTHER, SELFPAY | PROVIDERS: PCP Family Medicine; Visit Provider Surgery ==

== ENCOUNTER → 2024-06-07 14:50 | Outpatient (BNVA) | payer OTHER, SELFPAY | PROVIDERS: PCP Family Medicine; Visit Provider Physician Assistant Surgical ==

== ENCOUNTER 2024-06-08 18:53 | Emergency (ER) | payer OTHER, SELFPAY ==
--- NOTE | ~2024-06-08 | XR_ITS ---
CLINICAL HISTORY: fall, trauma 3 view left elbow Comparison: None Findings: Bones intact. No dislocations. No significant loss of joint space, osteophytes, or erosions. No joint effusion. No radiopaque foreign body. Posterior elbow soft tissue swelling. IMPRESSION: 1. No acute fracture This document has been electronically signed by: Gerardo Ryan MD on 06/08/2024 19:58:47
--- NOTE | ~2024-06-08 | XR_ITS ---
CLINICAL HISTORY: fall, trauma 4 view left wrist Comparison: None Findings: No fractures or dislocations. No significant arthritic change or erosions. No radiopaque foreign body. Mildly diffuse soft tissue swelling. IMPRESSION: 1. No acute fracture This document has been electronically signed by: Gerardo Ryan MD on 06/08/2024 19:58:23
--- NOTE | ~2024-06-08 | XR_ITS ---
CLINICAL HISTORY: fall, trauma 3 view, pelvis and left hip Comparison: None Findings: The bones are intact. No significant arthritic change. The soft tissues are unremarkable. IMPRESSION: No acute findings. This document has been electronically signed by: Gerardo Ryan MD on 06/08/2024 19:58:20
[2024-06-08 18:59] VITALS: BP 97/59; PULSE 76; RESP 18; TEMP 36.2; O2SAT 98; BMI 35.5
--- NOTE | 2024-06-08 19:00 | ED_ITS ---
HPI - General Adult General Chief complaint: Fall Stated complaint: Fall; left side hip & wrist pain Time Seen by Provider: 06/08/24 20:23 Source: patient, RN notes reviewed, old records reviewed and lay out and detail drafter Limitations: language barrier History of Present Illness ED Provider: Dorothea HPI narrative: 43-year-old male presents for evaluation after a fall. Patient reports that he was getting down off a truck today when he fell onto his left side. He injured his left hip, wrist and elbow. Denies any head strike pain He is not on any anticoagulation he reports that he can not take NSAIDs due to an aspirin allergy Related Data Previous Rx's ?Medication ?Instructions ?Recorded fluticasone propionate 50 1 spray intranasal Q12H 30 days 06/03/22 mcg/actuation nasal #16 grams spray,suspension (Flonase Allergy Relief) albuterol sulfate 90 mcg/actuation 2 puff inhalation Q6H PRN asthma 08/05/23 aerosol inhaler #6.7 grams tirzepatide (weight loss) 2.5 2.5 mg (0.5 mL) subcut QWEEK #2 mL 05/30/24 mg/0.5 mL subcutaneous pen injector (Zepbound) Allergies Allergy/AdvReac Type Severity Reaction Status Date / Time aspirin Allergy Mild rash, Verified 06/08/24 19:02 swelling Review of Systems Constitutional: Constitutional: Denies body ache(s), Denies chills, Denies fever(s) and Denies headache(s) ENT: Denies headache(s) Musculoskeletal: Musculoskeletal: Reports arthralgias, Reports joint swelling and Reports limited range of motion Neurologic: Denies headache(s) [facility] Past Medical History Medical History (Updated 06/08/24 @ 20:34 by Isaiah Piedra) Back pain Obesity Pain of right great toe Asthma Vertigo Surgical History History of surgery of head History of testicular surgery Family History Family History Father Heart disease No family history of mental disorder Mother Heart disease Diabetes Hypertension Seizures No family history of mental disorder Social History Social History Household Members: Spouse and Family Housing: Apartment Alcohol intake: current Alcohol intake frequency: holidays/special occasions only Patient Tobacco Use Status: Never used Tobacco e-Cigarette/Vaping Use: Never Used Advance Directives: No Advance Directives Information Provided: No Do you have a plan to hurt others: No Plan service: No Current occupational status: employed 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 Cognitive needs: No Hearing needs: No Vision needs: No Physical Exam ED Vital Signs: Vital Signs - 24 hr 06/08/24 18:59 Temperature 97.2 F Pulse Rate 76 Respiratory Rate 18 Blood Pressure 97/59 L Pulse Oximetry 98 Oxygen Delivery Method Room Air BMI result Body Mass Index 35.5 Const General: healthy appearing, comfortable, no acute distress, alert and awake Nutritional Appearance: well nourished Orientation/consciousness: patient oriented x3 HENMT Head: Yes normocephalic and Yes atraumatic Eyes Eyelids: Yes eyelids normal Conjunctivae: conjunctivae normal Sclerae: sclerae normal Corneas: corneas normal Pupils: Equal, round and reactive pupils present EOM: EOMs intact bilaterally Neck Neck: Yes full ROM Resp Effort & Inspection: normal respiratory effort, able to speak in complete sentences and not labored Skin General skin exam: elasticity normal Neuro General: patient oriented x3 Cranial nerves: Yes Equal, round and reactive pupils present and Yes Bilaterally intact EOM present Cognition (Neuro): normal cognition Extrem Other: there was no obvious deformity to the entire left upper extremity left hip. The patient is ambulatory with a limp favoring the left side. He is tender to palpation of the left wrist on the ulnar side. There was no scaphoid tenderness. There was mild left elbow tenderness without deformity. Full range of motion with flexion-extension of the left shoulder, elbow, wrist and all fingers of the left hand. Course Course Course Narrative: RME, this is a rapid medical exam performed by Juan Piedra please refer to primary provider for complete H&P- 43-year-old male presents for evaluation of left hip, wrist and elbow pain after a fall. Patient was getting down from a truck when he fell to the ground onto his left side. Denies hitting his head or losing consciousness. Plan for x-rays. Medical Decision Making Medical Decision Making MDM Narrative: 43-year-old male presents for evaluation after a fall today. He fell from a few feet injury in his left hip, wrist and elbow. X-rays are all negative for fracture. He is ambulatory, I have a lower suspicion for occult hip fracture or pelvic fracture. We will treat the patient's symptomatically with Tylenol. I encouraged him to remove his radiating from his left hand but he declined because it has been there for 21 years and I am not taking it off. . I explained that his finger could swelling due to injury of the left wrist and we may have to cut the ring off and he still refuses to removed with a ring. Differential Diagnosis Differential Diagnoses: The differential diagnosis associated with the presentation includes Wrist sprain Wrist fracture Elbow contusion Elbow fracture Hip contusion Radiology Impression Discussion of test interpretation with radiology: I have reviewed the radiologist's reading. Radiologist Impression: Findings: No fractures or dislocations. No significant arthritic change or erosions. No radiopaque foreign body. Mildly diffuse soft tissue swelling. IMPRESSION: 1. No acute fracture This document has been electronically signed by: Gerardo Ryan MD on 06/08/2024 19:58:23 Findings: The bones are intact. No significant arthritic change. The soft tissues are unremarkable. IMPRESSION: No acute findings. This document has been electronically signed by: Gerardo Ryan MD on 06/08/2024 19:58:20 Findings: Bones intact. No dislocations. No significant loss of joint space, osteophytes, or erosions. No joint effusion. No radiopaque foreign body. Posterior elbow soft tissue swelling. IMPRESSION: 1. No acute fracture This document has been electronically signed by: Gerardo Ryan MD on 06/08/2024 19:58:47 Discharge Plan Discharge Clinical Impression: Contusion of hip, Contusion of elbow, Left wrist sprain Patient Disposition: Home, Self-Care Instructions: Wrist Sprain (ED), Hip Contusion (ED) Additional Instructions: your x-rays did not show any fractures. Use Tylenol as needed for pain. Ice the area several times Prescriptions: No Action fluticasone propionate [Flonase Allergy Relief] 50 mcg/actuation spray,suspension 1 spray intranasal Q12H 30 Days Qty: 16 3RF Rx Instructions: administer into each nostril albuterol sulfate 90 mcg/actuation HFA aerosol inhaler 2 puff inhalation Q6H PRN (Reason: asthma) Qty: 6.7 2RF Zepbound 2.5 mg/0.5 mL pen injector 2.5 mg subcut QWEEK Qty: 2 0RF Rx Instructions: for 4 weeks Stand Alone Forms: Work/School Release Print Language: Tamazight
[2024-06-08 20:36] VITALS: BP 99/62; PULSE 74; RESP 18; TEMP 36.8; O2SAT 96
[2024-06-08 20:40] VITALS: BP 99/62; PULSE 74; RESP 18; TEMP 36.8; O2SAT 96
== END 2024-06-08 20:41 | disposition home or self-care (01) ==
PROVIDERS: Emergency Provider Internal Medicine; PCP Family Medicine
DX: S70.02XA Contusion of left hip, initial encounter (principal); S50.02XA Contusion of left elbow, initial encounter; S63.502A Unspecified sprain of left wrist, initial encounter; V68.4XXA Person boarding or alighting a heavy transport vehicle injured in noncollision transport accident, initial encounter; M25.552 Pain in left hip; M25.522 Pain in left elbow; M25.532 Pain in left wrist; Y93.89 Activity, other specified; Y92.812 Truck as the place of occurrence of the external cause; Y99.9 Unspecified external cause status
CPT/HCPCS: 73080; 73110; 73502; 99283

== ENCOUNTER → 2024-06-08 19:00 | Outpatient (BNV) | payer OTHER, SELFPAY | PROVIDERS: PCP Family Medicine; Visit Provider Radiology Diagnostic Radiology | DX: M25.552 Pain in left hip (principal); R22.32 Localized swelling, mass and lump, left upper limb; W17.89XA Other fall from one level to another, initial encounter | CPT/HCPCS: 73080; 73110; 73502 ==

== ENCOUNTER → 2024-07-07 10:27 | Outpatient (BNVA) | payer OTHER, SELFPAY | PROVIDERS: PCP Family Medicine ==

== ENCOUNTER → 2024-07-08 14:32 | Outpatient (BNV) | payer OTHER, SELFPAY | PROVIDERS: PCP Family Medicine; Referring Provider Family Medicine; Visit Provider Nurse Practitioner Family | DX: D64.9 Anemia, unspecified (principal) | CPT/HCPCS: 99204 ==

== ENCOUNTER 2024-10-10 07:48 | Outpatient (REF) | payer OTHER, SELFPAY ==
--- NOTE | ~2024-10-10 | US_ITS ---
EXAMINATION: US ABDOMEN COMPLETE CLINICAL INFORMATION: Chronic anemia, low haptoglobin, elevated ferritin. COMPARISON: None available. TECHNIQUE: Real-time imaging of the abdominal viscera. FINDINGS: PANCREAS: Visualized portions are unremarkable. ABDOMINAL AORTA: The proximal, mid, and distal segments are normal in caliber. INFERIOR VENA CAVA: Visualized portions are normal. LIVER: The liver is normal in size. Right hepatic lobe measures 14.7 cm. The liver contour is normal. Parenchymal echogenicity is normal. No focal hepatic lesion. There is no intrahepatic biliary duct dilatation seen. GALLBLADDER: The gallbladder is physiologically distended without evidence of stones, sludge, polyps, wall thickening or pericholecystic fluid. COMMON BILE DUCT: Normal in caliber measuring 0.3 cm in diameter. RIGHT KIDNEY: No hydronephrosis. No renal calculi or focal parenchymal lesions. The kidney measures 10.6 cm in maximum dimension. LEFT KIDNEY: No hydronephrosis. No renal calculi or focal parenchymal lesions. The kidney measures 13.7 cm in maximum dimension. SPLEEN: The spleen measures 9.1 cm in maximum dimension. FREE FLUID: None. US/US abdomen complete IMPRESSION: Normal abdominal ultrasound. Electronically signed by: Mckinley Hernandez MD 10/10/2024 08:35 AM EDT
--- OUTSIDE RECORDS SUMMARY | 2024-10-10 07:50 | XMS_ITS | Clinical Summary ---
Author Organization [facility] Address [address] [place] [address] Care Team Providers Care Bead Forming Machine Set Up Operator Name Role Phone Unavailable Primary Care Provider [...] 60 10/02/2017 11:43 AM EDT Temperature 36.7 C (98.1 F) 10/02/2017 11:43 AM EDT Respiratory Rate 17 10/02/2017 11:43 AM EDT [...] - 2023-2 5 season) 2023 Influenza (#1) 2024 Zoster (Shingrix) (1 of 2) 2030 HPV Vaccine (No Doses Required) Completed Hep A Aged Out No longer eligi [...] to complete this topic Insurance * Guarantor: [id number] STAFFING Account Type Relation to Patient Date of Phone Billing Address Worker[employer] Comp [address] [place] [id number] [employer] . [address] [place] [id number]
--- OUTSIDE RECORDS SUMMARY | 2024-10-10 07:50 | XMS_ITS | Encounter Summary ---
Author Organization [facility] Address [address] [place] [address] Care Team Providers Care Electrical Controls Technician Name Role Phone Unavailable Primary Care Provider Unavailabl e Encounter Details Date Type Department Care Team (Late st Contact Info) Description 08/04/2019 Lab Requisition [facility] Specimens [address] [place] [address] Cornel Snow MD [address] [place] [address] Encounter for screening for other [...] Date/Time Associated Diagnosis Comments SARS COV-2 (COVID-19) RNA-[facility] ([facility]) Routine 08/04/2019 7:14 PM EDT Encounter for screening for other viral diseases documented in this encounter Results * SARS CoV-2 (COVID-19) PCR - [facility] ([facility]) (08/04/2019 7:14 PM EDT) SARS-CoV-2 RNA (COVID-19) Not Detected Not Detected 08/05/2019 6:53 PM EDT [facility] Comment: Negative results do not preclude COVID-19 and should not be the sole basis for patient management decisions. Clinical disease and risk factors should also be considered. This real-time RT-PCR assay was developed by [employer] and targets three regions of the SARS-CoV-2 genome: orf1ab, spike (S) gene, nucleocapsid (N) gene. It has been validated for clinical use by the [facility] Virology Laboratory. TaqPath COVID-19 Combo Kit is for use only under Emergency Use Authorization (EUA). Testing is limited to laboratories certified under the Clinical Laboratory Improvement Amendments of 1988 (CLIA), 42 U.S.C. 263a, to perform high complexity tests. Note that falsely negative results can be due to poor sample quality, suboptimal sample type, low viral load, and viral genome variability. Fact Sheet for Healthcare Providers: https://www.fda.gov/media/671251/download Fact Sheet for Patients: https://www.fda.gov/media/290240/download Test performance has not been evaluated in asymptomatic patients. Test ordering and result interpretation is at the discretion of the ordering provider. Viral NASOPHARYNGEAL STRUCTURE / Unknown 08/04/2019 7:14 PM EDT 08/04/2019 7:14 PM EDT Cornel Snow MD MICROBIOLOGY - GENERAL OR DERABLES Final Result [facility] [address] [place] [address], [facility] [phone] documented in this encounter Visit Diagnoses Diagnosis Encounter for screening for other viral diseases documented in this encounter Additional Health Concerns Infection Onset Date Last Indicated Resolved Time R/O COVID-19 08/04/2019 08/04/2019 08/05/2019 6:53 PM EDT documented as of this encounter
--- OUTSIDE RECORDS SUMMARY | 2024-10-10 07:50 | XMS_ITS | Clinical Summary ---
Author Organization [facility] Address [address] [place] [address] Care Team Providers Care Transverse Abdominal Muscle Surgeon Name Role Phone Non-Sechc, Provider Primary Care Provider [phone] Source Comments PLEASE NOTE, if this patient is a minor, it may be UNLAWFUL to discuss sensitive information that is contained in these records (such as FAMILY PLANNING, MENTAL HEALTH or SUBSTANCE ABUSE) with the minor patient's parent or other person without the patient's specific authorization.[facility] Allergies Active Allergy Reactions Criticality Noted Date Comments Aspirin Hives,Swelling High 07/04/2010 ASPIRIN -- Medications acetaminophen (TYLENOL) 500 mg tabletIndications :Acute bilateral low back pain with right-sided sciatica Take 1 Tab by mouth every 6 (six) hours as needed for pain. 90 Tab 0 6 Active cyclobenzaprine (FLEXERIL) 5 mg tabletIndications :Chronic bilateral low back pain with bilateral sciatica Take 2 Tabs by mouth nightly at bedtime as needed for muscle spasms. 30 Tab 0 6 Active traMADol (ULTRAM) 50 mg tabletIndications :Chronic bilateral low back pain with bilateral sciatica Start with 1/2 tab. If no improvement after day 1, may increase to 1 tab q6h 10 Tab 0 6 Active albuterol sulfate 90 mcg/actuation inhalerIndication s:Mild intermittent asthma, uncomplicated ([facility]) Inhale 2 Puffs into the lungs every 4 (four) hours as needed for shortness of breath or wheezing 1 Inhaler 1 8 Active Active Problems Problem Noted Date Diagnosed Date Overweight 07/21/2017 Overview (07/21/2017): 07/21/2017 BMI: 35.73 Increase vegetables, half of plate should be vegetables Increase exercise, 30 min minimum daily Limit juice and soda Drink plenty of water TV/screen time is 1-2 hours maximum daily Seasonal allergic rhinitis due to pollen 018 Overview (07/21/2017): 07/21/2017 Wash face when coming from outside Change pillow cases weekly. Hand out given If symptoms worsen or persist, return to clinic. Chronic bilateral low back pain with bilateral s ciatica 01/25/2016 Hemorrhoids 01/12/2013 Disorder of male genital organs 01/12/2013 Mild intermittent asthma, uncomplicated ([facility] ) 11/03/2012 Overview (07/21/2017): 07/21/2017 Discussed importance of using own pump. ACT 25 Well controlled Adult onset stuttering 02/18/2012 Health examination of defined subpopulation 06/15 Resolved Problems Problem Noted Date Diagnosed Date Resolved Date Allergic rhinitis 06/21/2015 02/04/2016 Constipation 01/12/2013 02/04/2016 Immunizations Immunization Administration Dates Next Due INFLUENZA, UNSPECIFIED 02/18/2012 PNEUMOCOCCAL POLYSACCHARIDE PPV23 (Pneumovax 23) 07/21/2017 Td (adult) unspecified 02/18/2012 Family History Medical History Relation Name Comments Asthma Brother Heart Problems Father Stroke Maternal Grandfather Arthritis Mother Asthma Mother Diabetes Mother High Cholesterol Mother Alcohol/Drug Abuse Neg Cancer Neg Depression Neg Hypertension Neg Kidney disease Neg Mental illness Neg Vision Problems Neg Relation Name Status Comments Brother Father Maternal Grandfather Mother Social History Tobacco Use Types Packs/Day Years Used Date Smoking Tobacco: Never Smokeless Tobacco: Never Tobacco Cessation:Counseling Given: No Alcohol Use Standard Drinks/Week Comments Yes 0 (1 standard drink = 0.6 oz pur e alcohol) x2 a year Social Connections Answer Date Recorded Social Connections and Isolation 0 11/07/2018 Financial Resource Strain Answer Date R ecorded Financial Resource Strain 0 2018 Stress Answer Date Recorded Stress 0 11/07/2018 Physical Activity Answer Date Recorded Physical Activity 0 11/07/2018 Food Insecurity Answer Date Recorded Food 0 11/07/2018 Transportation Needs Answer Date Record ed Transportation 0 11/07/2018 Housing Stability Answer Date Recorded Housing 0 11/07/2018 Safety and Environment Answer Date Arturo rded Safety 0 11/07/2018 Utilities Answer Date Recorded Utilities 0 11/07/2018 Employment Answer Date Recorded Employment 0 11/07/2018 Sex and Gender Information Value Date Recorded Sex Assigned at Male 07/21/2017 11:34 AM PDT Legal Sex Male 10:54 PM PDT Gender Identity Male 07/21/2017 11:34 AM PDT Sexual Orientation Straight 07/21/2017 11 :34 AM PDT Last Filed Vital Signs Vital Sign Reading Time Taken Comments Blood Pressure 110/70 07/21/2017 1:49 PM EDT Pulse 64 07/21/2017 1:49 PM EDT Temperature 36.8 C (98.3 F) 01/23/2016 12:04 PM EST Respiratory Rate - - Oxygen Saturation 100% 01/23/2016 12:04 PM EST Inhaled Oxygen Concentration - - Weight 112.9 kg (249 lb) 07/21/2017 1:49 PM EDT Height 177.8 cm (5' 10 ) 07/21/2017 1:49 PM EDT Body Mass Index 35.73 07/21/2017 1:49 PM EDT Plan of Treatment Not on file Insurance [employer] WORKERS [facility] Member Subscriber Plan / Payer (Ef fective 2017-Present) Name:Vineet Mcnulty Riddhi Relation to Subscriber:Self Name:Vineet Mcnulty Payer ID:[id number] Group ID:Not on file Type:Medicaid Address: [facility] [address] [place] [address] BLUE [facility] Care Teams Transverse Abdominal Muscle Surgeon Relationship Specialty Start Date End Date Non-Sechc, Provider [address] [place] [address] PCP - General Freight Trucker 05/03/19
--- OUTSIDE RECORDS SUMMARY | 2024-10-10 07:50 | XMS_ITS | Clinical Summary ---
Author Organization [facility] Address [address] [place] [address] Phone Care Team Providers Care Oil Pump Station Operator Chief Name Role Phone Physician, Pcp Unknown Primary Care Provider Naz vailable Allergies Active Allergy Reactions Criticality Noted Date Comments Aspirin Anaphylaxis High 02/11/2022 Social History Tobacco Use Types Packs/Day Years [...] 65 03/10/2024 3:20 PM EST Temperature 37.4 C (99.3 F) 03/10/2024 3:20 PM EST Respiratory Rate 16 03/10/2024 3:20 PM EST [...] 5 Years) and At-Risk Patients (6 to 49 Years) (2 of 2 - PCV) 07/21/2018 07/21/2017 Cholesterol Screening (Lipid Panel) 02/16/2022 HIV Screening 02/16/2022 Hepatitis C Screening 02/16/2022 Social Influencers of Health Screening 02/16/2022 DTaP,Tdap,and Td Vaccines (2 - Td or Tdap) 02/17/2022 02/18/2012 COVID-19 Vaccine (3 - 2023-2 5 season) 2023 11/26/2020, 07/09/2020 Depression Screening 03/16/2024 Influenza Vaccine (#1) 2024 02/18/2012 HIB Vaccines Aged Out No longer [...] age to complete this topic Meningococcal B Vaccine Aged Out No l onger eligible based on patient's age to complete this topic RSV Immunization Patients Under 20 months Aged Out No longer eligible b ased on patient's age to complete this topic Varicella Vaccines Aged Out No longer eligible based on patient's age to complete this topic Insurance [facility] PUBLIC PLANS Care Teams Oil Pump Station Operator Chief Relationship Specialty Start Date End Date Physician, Pcp Unknown PCP - General 03/10/24
== END 2024-10-10 07:49 | disposition home or self-care (01) ==
LOC: HO.US 07:48
PROVIDERS: PCP Family Medicine; Visit Provider Nurse Practitioner Family
DX: R77.8 Other specified abnormalities of plasma proteins (principal); R79.89 Other specified abnormal findings of blood chemistry; D64.9 Anemia, unspecified
CPT/HCPCS: 76700

== ENCOUNTER → 2024-10-10 07:49 | Outpatient (BNV) | payer OTHER, SELFPAY | PROVIDERS: PCP Family Medicine; Visit Provider Radiology Diagnostic Radiology | DX: D64.9 Anemia, unspecified (principal) | CPT/HCPCS: 76700 ==

== ENCOUNTER 2024-11-25 20:55 | Emergency (ER) | payer OTHER, SELFPAY ==
--- NOTE | ~2024-11-25 | CT_ITS ---
CLINICAL HISTORY: fall, neck pain CT cervical spine without contrast Comparison: None provided Findings: Straightening of the normal cervical lordosis. Multilevel degenerative endplate changes of the cervical spine most pronounced at C5-6. No high-grade spinal stenosis. No acute fractures or dislocations. Visualized intracranial contents are unremarkable. Soft tissues of the neck are normal. Lung apices are clear. IMPRESSION: No acute traumatic abnormality in the cervical spine. This document has been electronically signed by: Tessy Russo MD on 11/25/2024 22:50:46
--- NOTE | ~2024-11-25 | XR_ITS ---
CLINICAL HISTORY: fall, low back pain. 3 views lumbar spine Comparison: None provided Findings: Normal alignment. No acute fractures or dislocation. No significant degenerative change. IMPRESSION: No acute findings. This document has been electronically signed by: Tessy Russo MD on 11/25/2024 22:29:38
--- NOTE | ~2024-11-25 | CT_ITS ---
CLINICAL HISTORY: fall, head injury CT head without contrast Comparison: None provided Findings: BRAIN: No acute infarct, hemorrhage, or mass effect. No abnormal atrophy. CSF SPACES: No hydrocephalus or effacement of basal cisterns. SKULL: No calvarial fracture. SINUSES: No significant mucosal thickening or effusion on limited views. ORBITS: Limited views are unremarkable. OTHER: Negative. IMPRESSION: 1. No acute intracranial findings. This document has been electronically signed by: Tessy Russo MD on 11/25/2024 22:51:50
[2024-11-25 20:57] VITALS: BP 88/54; PULSE 68; RESP 16; TEMP 36.6; O2SAT 97; BMI 29.9
--- OUTSIDE RECORDS SUMMARY | 2024-11-25 21:12 | XMS_ITS | Encounter Summary ---
Author Organization [facility] Address [address] [place] [address] Care Team Providers Care Supervisor Farm Equipment Maintenance Name Role Phone Unavailable Primary Care Provider Unavailabl e Encounter Details Date Type Department Care Team (Late st Contact Info) Description 08/04/2019 Lab Requisition [facility] Specimens [address] [place] [address] Cornel Snow MD [address] [place] [address] Encounter for screening for other [...] Date/Time Associated Diagnosis Comments SARS COV-2 (COVID-19) RNA-[facility] ([facility]) Routine 08/04/2019 7:14 PM EDT Encounter for screening for other viral diseases documented in this encounter Results * SARS CoV-2 (COVID-19) PCR - [facility] ([facility]) (08/04/2019 7:14 PM EDT) SARS-CoV-2 RNA (COVID-19) Not Detected Not Detected 08/05/2019 6:53 PM EDT [facility] Comment: Negative results do not preclude COVID-19 and should not be the sole basis for patient management decisions. Clinical disease and risk factors should also be considered. This real-time RT-PCR assay was developed by [employer] and targets three regions of the SARS-CoV-2 genome: orf1ab, spike (S) gene, nucleocapsid (N) gene. It has been validated for clinical use by the [facility] Virology Laboratory. TaqPath COVID-19 Combo Kit is [...] genome variability. Fact Sheet for Healthcare Providers: https://www.fda.gov/media/233882/download Fact Sheet for Patients: https://www.fda.gov/media/731915/download Test performance has not been evaluated in asymptomatic patients. Test ordering and result interpretation is at the discretion of the ordering provider. Viral NASOPHARYNGEAL STRUCTURE / Unknown 08/04/2019 7:14 PM EDT 08/04/2019 7:14 PM EDT Cornel Snow MD MICROBIOLOGY - GENERAL OR DERABLES Final Result [facility] [address] [place] [address], [facility] [phone] documented in this encounter Visit Diagnoses Diagnosis Encounter for screening for other viral diseases documented in this encounter Additional Health Concerns Infection Onset Date Last Indicated Resolved Time R/O COVID-19 08/04/2019 08/04/2019 08/05/2019 6:53 PM EDT documented as of this encounter
--- OUTSIDE RECORDS SUMMARY | 2024-11-25 21:12 | XMS_ITS | Clinical Summary ---
Author Organization [facility] Address [address] [place] [address] Care Team Providers Care Regrader Name Role Phone Non-Sechc, Provider Primary Care Provider [phone] Source Comments PLEASE NOTE, if this patient [...] 90 mcg/actuation inhalerIndication s:Mild intermittent asthma, uncomplicated ([facility]) Inhale 2 Puffs into the lungs every [...] genital organs 01/12/2013 Mild intermittent asthma, uncomplicated ([facility] ) 11/03/2012 Overview (07/21/2017): 07/21/2017 Discussed importance [...] Plan of Treatment Not on file Insurance [employer] WORKERS [facility] Member Subscriber Plan / Payer (Ef fective 2017-Present) Name:Vineet Mcnulty Riddhi Relation to Subscriber:Self Name:Vineet Mcnulty Payer ID:[id number] Group ID:Not on file Type:Medicaid Address: [facility] [address] [place] [address] BLUE [place] Care Teams Regrader Relationship Specialty Start Date End Date Non-Sechc, Provider [address] [place] [address] PCP - General Paint Formulator 05/03/19
--- OUTSIDE RECORDS SUMMARY | 2024-11-25 21:12 | XMS_ITS | Clinical Summary ---
Author Organization [facility] Address [address] [place] [address] Phone Care Team Providers Care Jd Edwards Name Role Phone Physician, Pcp Unknown Primary [...] (2 - Td or Tdap) 02/17/2022 02/18/2012 Depression Screening 03/16/2024 COVID-19 Vaccine (3 - 2024-2 6 season) 2024 11/26/2020, 07/09/2020 Influenza Vaccine (#1) 2024 02/18/2012 HIB Vaccines [...] patient's age to complete this topic Insurance [facility] PUBLIC [employer] Care Teams Jd Edwards Relationship Specialty Start Date End Date Physician, Pcp Unknown PCP - General 03/10/24
--- OUTSIDE RECORDS SUMMARY | 2024-11-25 21:12 | XMS_ITS | Clinical Summary ---
Author Organization [address] Address [address] [place] [id number] Care Team Providers Care Commercial Sales Specialist Name Role Phone Unavailable Primary Care Provider [...] 10,TDAP once) 2000 Lipid disorder screening 2020 Covid-19 vaccine series ( - 2023-25 season) 2024 Influenza vaccine 11/14/2024 RSV Immunization (1 - 1-dose 75+ series) 01/01/2056 Meningococcal B Vaccine Aged Out No l onger eligible based on patient's age to complete this topic Meningococcal Vaccine Aged Out No juan maximino eligible based on patient's age to complete this topic Pneumococcal Vaccine (2 - 49 years) Aged Out No longer eligible based on patient's age to complete this topic
[2024-11-25 21:22] LABS: MANUAL DIFF FLAG NO
[2024-11-25 21:25] LABS: Hematocrit 33.9 % (42.0-52.0); Hemoglobin 11.4 g/dl (14.0-18.0); Imm Gran Abs Auto 0.01 X10*3/uL (0.00-0.03); Imm Gran Pct Auto 0.1 % (0.0-0.4); Lymphocytes Absolute Auto 1.4 X10*3/uL (1.2-4.9); Mean Corpuscular HGB Conc 33.6 g/dl (31.0-36.0); Mean Corpuscular Hemoglobin 29.9 pg (27.0-33.0); Mean Corpuscular Volume 89.0 fL (80.0-98.0); NRBC Abs Auto 0.000 X10*3/uL (0.0-0.012); NRBC Pct Auto 0.0 /100WBC (0.0-0.2); Platelet Count 213 X10*3/uL (160-400); Red Blood Count 3.81 X10*6/uL (4.60-5.80); White Blood Count 8.0 X10*3/uL (4.8-10.8)
--- NOTE | 2024-11-25 21:37 | ED.FALL ---
HPI - Fall General Chief Complaint: Fall Stated Complaint: Fall/head inj Time Seen by Provider: 11/25/24 21:30 Source: patient and family Mode of arrival: ambulatory Limitations: no limitations History of Present Illness ED Provider: DR. Jones HPI Narrative: 43-year-old male presented with his for evaluation after a fall and head injury while he was playing basketball, patient collided with another player fell backward landing on his back hitting the back of his head, no LOC, complaining of diffuse headache, neck pain, and lower back pain, otherwise no other complaints, patient noted in triage to be slightly confused and slow to answer question while I was interviewing the patient was not confused and was able to respond briskly to my questions. otherwise no blurry vision, no chest pain, no weakness, no numbness, no extremities pain or deformity. No history of taking anticoagulation or antiplatelets medications. As per and patient patient also was with blood pressure at the low side. Patient with chronic anemia, no active rectal bleed or blood in the urine. Related Data Previous Rx's ?Medication ?Instructions ?Recorded fluticasone propionate 50 1 spray intranasal Q12H 30 days 06/03/22 mcg/actuation nasal #16 grams spray,suspension (Flonase Allergy Relief) tirzepatide (weight loss) 5 mg/0.5 5 mg (0.5 mL) subcut QWEEK #2 mL 07/05/24 mL subcutaneous pen injector (Zepbound) tirzepatide (weight loss) 7.5 7.5 mg (0.5 mL) subcut QWEEK #2 mL 08/24/24 mg/0.5 mL subcutaneous pen injector (Zepbound) albuterol sulfate 90 mcg/actuation 2 puff inhalation Q6H PRN asthma 09/22/24 aerosol inhaler #6.7 grams tirzepatide (weight loss) 10 10 mg (0.5 mL) subcut QWEEK #2 mL 09/25/24 mg/0.5 mL subcutaneous pen injector (Zepbound) tirzepatide (weight loss) 12.5 12.5 mg (0.5 mL) subcut QWEEK #2 mL 10/26/24 mg/0.5 mL subcutaneous pen injector (Zepbound) Allergies Allergy/AdvReac Type Severity Reaction Status Date / Time aspirin Allergy Mild rash, Verified 11/25/24 20:59 swelling Review of Systems Review of Systems: All other systems are reviewed and are negative Constitutional: Reports as per HPI and Reports no additional constitutional complaints Eyes: Reports as per HPI and Reports no additional eye complaints Reports system reviewed and no additional complaints, except as documented Cardiovascular: Reports as per HPI and Reports no additional cardiovascular complaints Respiratory: Reports as per HPI and Reports no additional respiratory complaints Gastrointestinal: Reports as per HPI and Reports no additional gastrointestinal complaints Genitourinary: Reports no additional female genitourinary complaints Musculoskeletal: Reports no additional musculoskeletal complaints Skin/Breast: Reports system reviewed and no additional complaints, except as docu Psychiatric: Reports no additional psychiatric complaints Endocrine: Reports no additional endocrine complaints Hematologic/Lymphatic: Reports no additional hematologic/lymphatic complaints Allergic/Immunologic: Reports no additional allergic/immunologic complaints Reports system reviewed and no additional complaints, except as documented and Reports Abnormal speech present [facility] Past Medical History Medical History Back pain Obesity Pain of right great toe Asthma Vertigo Surgical History History of surgery of head History of testicular surgery Family History Family History Father Heart disease No family history of mental disorder Mother Heart disease Diabetes Hypertension Seizures No family history of mental disorder Social History Social History Household Members: Spouse and Family Housing: Apartment Alcohol intake: current Alcohol intake frequency: holidays/special occasions only Alcohol type: beer Patient Tobacco Use Status: Never used Tobacco Smoked in Last 30 Days: No e-Cigarette/Vaping Use: Never Used Use of substances other than those prescribed or required for medical reasons: No Advance Directives: No Advance Directives Information Provided: No Do you have a plan to hurt others: No Plan service: No Current occupational status: employed 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 Blood pressure elevated. Heart rate normal. Respiratory rate normal. Temperature normal. Oxygen saturation normal. Appearance: Alert. Oriented X3. No acute distress. Head: Normal external exam. Normocephalic, diffuse occipital tenderness, no hematoma. No Ventura signs noted. No raccoon eyes noted Eyes: PERRLA. EOMI. Conjunctiva and sclera normal. Eyelids normal. ENT: TM's Normal. Pharynx normal. Uvula midline. Moist mucous membranes. No trismus noted. No drooling noted. No muffled voice noted. Neck: Normal inspection. Neck supple. FROM. No adenopathy. Thyroid Normal. No meningeal signs. No neck mass noted. CVS: Normal heart rate and rhythm. Heart sound normal. No murmurs noted. Pulses normal throughout. Respiratory: No respiratory distress. Painless inspiration. Breath sounds normal. No wheezes/rales/rhonchi noted. Chest nontender. No accessory muscle usage noted or decreased air movement noted. Abdomen: Soft and nontender. Bowel sounds normal in all 4 quadrants. No distention noted. No organomegaly noted. No visible injury noted. Back: No CVA tenderness. Full range of motion noted. Skin: Skin warm and dry. Normal skin color. Normal skin turgor. No rashes/lesions/lacerations noted. Extremities: No lower extremity edema. Extremities exhibit normal range of motion. Extremities nontender. Neuro: GCS 15 Mental status: Normal attention, orientation, memory, and affect. Cranial nerves: Pupils are equal, round and reactive to light, EOMI, visual zacarias are fall, face is symmetric, facial sensations are normal. Motor examination normal muscle tone, strength to 4 extremities. DTR are +2, planter's are flexor. Sensory exam; normal coordination, no ataxia, gait stable. Cerebellar exam: [id number]-[id number] and kkrm-we-[id number] is normal. Extrapyramidal system: No tremors, no rigidity with normal facial expressions. Pronator drift not present Course Reevaluation(s) Reevaluation #1: A 43-year-old male s/p falling while playing basketball, GCS of 15, normal neuro exam, head CT is unremarkable for intracranial bleed, C-spine negative for fracture or subluxation. Patient feels better after hydration and Tylenol IV. Patient with history of hypotension which is normal for the patient, stable BP Which is normal for the patient. Low H&H but stable and chronic when compared with his old record patient follow with oncologist for workup of anemia had his last appointment today history. Time: 23:30 Medications Administered Discontinued Medications Generic Name Dose Route Start Last Admin Trade Name Freq PRN Reason Stop Dose Admin Acetaminophen 1,000 mg in 100 mls @ 400 mls/hr 11/25/24 21:36 11/25/24 22:15 Ofirmev IV 11/25/24 21:50 Infused ONCE ONE Infusion Sodium Chloride 1,000 mls @ 999 mls/hr 11/25/24 21:37 11/25/24 22:58 Ns IV 11/25/24 22:37 Infused .Q1H1M ONE Infusion Medical Decision Making Differential Diagnosis Differential Diagnoses: The differential diagnosis associated with the presentation includes ( intracranial bleed, cervical spine injury, back injury, chest injury, abdominal injury.) Admission/Observation Consideration of admission/observation: Escalation of care including admission/observation considered Lab Data MDM Lab Attestation statement: I reviewed the patient's lab results. 11/25/24 21:18 11/25/24 21:18 Labs: Lab Results 11/25/24 Range/Units 21:18 WBC 8.0 (4.8-10.8) X10*3/uL RBC 3.81 L (4.60-5.80) X10*6/uL Hgb 11.4 L (14.0-18.0) g/dl Hct 33.9 L (42.0-52.0) % MCV 89.0 (80.0-98.0) fL MCH 29.9 (27.0-33.0) pg MCHC 33.6 (31.0-36.0) g/dl RDW 13.3 (11.0-16.0) % Plt Count 213 (160-400) X10*3/uL MPV 10.8 (9.4-12.4) fL Immature Gran % (Auto) 0.1 (0.0-0.4) % Neut % (Auto) 66.3 (45-73) % Lymph % (Auto) 18.0 L (20-40) % [place] % (Auto) 7.6 (2-11) % Eos % (Auto) 7.5 H (0-4) % Baso % (Auto) 0.5 (0-2) % Lymph # (Auto) 1.4 (1.2-4.9) X10*3/uL [place] # (Auto) 0.6 (0.1-1.2) X10*3/uL Eos # (Auto) 0.6 H (0.0-0.4) X10*3/uL Baso # (Auto) 0.0 (0.0-0.2) X10*3/uL Abs Immat Gran (auto) 0.01 (0.00-0.03) X10*3/uL Absolute Neuts (auto) 5.3 (2.0-8.3) x10*3/uL Absolute Nucleated RBC 0.000 (0.0-0.012) X10*3/uL Nucleated RBC % (auto) 0.0 (0.0-0.2) /100WBC Sodium 144 (135-145) mmol/L Potassium 3.3 (3.3-5.1) mmol/L Chloride 112 H (96-108) mmol/L Carbon Dioxide 25 (22-29) mmol/L Anion Gap 10 L (12-20) BUN 12 (9-16) mg/dL Creatinine 0.98 (0.5-1.4) mg/dL Estim Creat Clear Calc 112.1 Estimated GFR > 60 Random Glucose 105 (60-115) mg/dL Calcium 8.8 D (8.4-10.2) mg/dL Total Bilirubin 0.7 (0.0-1.0) mg/dL AST 33 (5-37) U/L ALT 23 (0-40) U/L Alkaline Phosphatase 43 (39-117) U/L Total Protein 6.7 (6.5-8.0) g/dL Albumin 4.1 (3.5-5.0) g/dL Independent Interpretation I performed an independent interpretation of an: Plain X-Ray ( Lumbar spine: No acute pathology in the Lumbar spine x-ray.) and CT Scan ( head/cervical spine: No acute intracranial pathology, no cervical spine injury.) Radiology Impression Discussion of test interpretation with radiology: I have reviewed the radiologist's reading. Discharge Plan Discharge Clinical Impression: Accident due to mechanical fall without injury, Closed head injury Patient Disposition: Home, Self-Care Instructions: Head Injury (ED) Prescriptions: No Action fluticasone propionate [Flonase Allergy Relief] 50 mcg/actuation spray,suspension 1 spray intranasal Q12H 30 Days Qty: 16 3RF Rx Instructions: administer into each nostril Zepbound 5 mg/0.5 mL pen injector 5 mg subcut QWEEK Qty: 2 0RF Zepbound 7.5 mg/0.5 mL pen injector 7.5 mg subcut QWEEK Qty: 2 0RF albuterol sulfate 90 mcg/actuation HFA aerosol inhaler 2 puff inhalation Q6H PRN (Reason: asthma) Qty: 6.7 2RF Zepbound 10 mg/0.5 mL pen injector 10 mg subcut QWEEK Qty: 2 0RF Zepbound 12.5 mg/0.5 mL pen injector 12.5 mg subcut QWEEK Qty: 2 0RF Referrals: Jesus Mccord MD [Primary Care Provider, Internal Medicine] Print Language: [place] Citizen
[2024-11-25 21:38] LABS: Alanine Aminotransferase 23 U/L (0-40); Albumin Level 4.1 g/dL (3.5-5.0); Alkaline Phosphatase 43 U/L (39-117); Anion Gap 10 (12-20); Aspartate Amino Transferase 33 U/L (5-37); Blood Urea Nitrogen 12 mg/dL (9-16); Calcium 8.8 mg/dL (8.4-10.2); Carbon Dioxide 25 mmol/L (22-29); Chloride 112 mmol/L (96-108); Creatinine Clr Calc Pharmacy 112.1; Estimated Glomerular Filt Rate > 60; Potassium 3.3 mmol/L (3.3-5.1); Sodium 144 mmol/L (135-145); Total Protein 6.7 g/dL (6.5-8.0)
[2024-11-25 22:00] VITALS: BP 93/61; PULSE 54; RESP 16; TEMP 37; O2SAT 100
[2024-11-25 23:35] VITALS: BP 94/53; PULSE 55; RESP 15; TEMP 36.7; O2SAT 100
[2024-11-25 23:38] VITALS: BP 94/53; PULSE 55; RESP 15; TEMP 36.7; O2SAT 100
== END 2024-11-25 23:40 | disposition home or self-care (01) ==
PROVIDERS: Emergency Provider Emergency Medicine; PCP Family Medicine
DX: S09.8XXA Other specified injuries of head, initial encounter (principal); R41.0 Disorientation, unspecified; M54.50 Low back pain, unspecified; W03.XXXA Other fall on same level due to collision with another person, initial encounter; Y93.67 Activity, basketball; Y92.89 Other specified places as the place of occurrence of the external cause; Y99.8 Other external cause status
CPT/HCPCS: 36415; 70450; 72100; 72125; 80053; 85025; 96365; 99284; J0131

== ENCOUNTER → 2024-11-25 21:36 | Outpatient (BNV) | payer OTHER, SELFPAY | PROVIDERS: Emergency Provider Emergency Medicine; PCP Family Medicine; Visit Provider Student in an Organized Health Care Education/Training Program | DX: M54.2 Cervicalgia (principal); S09.90XA Unspecified injury of head, initial encounter; M54.50 Low back pain, unspecified; W19.XXXA Unspecified fall, initial encounter | CPT/HCPCS: 70450; 72100; 72125 ==

== ENCOUNTER 2024-11-28 10:36 | Outpatient (AMB) | payer OTHER, SELFPAY ==
--- NOTE | 2024-11-28 11:38 | AM.OFFWIN_ITS ---
Intake Vital Signs 11/28/24 11:39 Height 5 ft 10 in Weight 209 lb BMI 30.0 BP 100/64 Blood Pressure Location Lt brachial Position Sitting Respiration 16 Pulse 58 Pulse Source Pulse Oximeter Temp 98.1 F Temp Source Oral Pulse Oximetry (%) 97 Oxygen Delivery Method Room Air 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: EP Headaches/head pain Patient Tobacco Use Status: Never used Tobacco Instructional Services Specialist Required: Yes Accompanied by: Self / Same As Patient Allergies aspirin Allergy (Mild, Verified 11/28/24 11:41) rash, swelling HPI HPI Comments History of Present Illness Details History of Present Illness - The patient is a 43-year-old [place] [facility] male presenting with an japanese interpreter for a headache following a head injury sustained while playing basketball Thursday. - The headache began after the patient f ell and hit his head while trying to avoid a collision with a child during a basketball game. - The patient visited the emergency depa rtment Thursday after the incident where a CT scan was performed, which returned negative results. - The patient reports the headache is lo cated at the back of the head and is accompanied by dizziness, but no nausea or vomiting. - He continues to have a constant sharp pain in the back of the head with no radiation of the pain. 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 - He needs a note for work. - He denies neck pain, visual changes, c onfusion, CP, SOB, abd pain, n/v/d, or syncope. Physical Exam General: Cooperative, healthy appearing, comfortable, no acute distress and well developed Orientation: Patient oriented x3 Limitations: No limitations Head: Normal to inspection. No hematoma noted. TTP of the occipital region of the head. Eyes: Appearance normal, both eyes and all related structures. PERRLA, EOMI. Neck: Normal visual inspection and Yes full ROM Respiratory: Normal respiratory effort and able to speak in complete sentences. Clear to auscultation bilaterally Cardiovascular: Regular rate and rhythm. Normal S1 and S2 Skin: No rashes or lesions noted Neuro: Patient oriented x3. CN II- XII intact. Extremities: Normal to inspection Patient was informed and verbally consented to the use of an ambient scribe for clinic note documentation during this visit. [facility] Medical History Back pain Obesity Pain of right great toe Asthma Vertigo Surgical History History of surgery of head History of testicular surgery Family History Father Heart disease No family history of mental disorder Mother Heart disease Diabetes Hypertension Seizures No family history of mental disorder Social History Household Members: Spouse and Family Housing: Apartment Alcohol intake: current Alcohol intake frequency: holidays/special occasions only Alcohol type: beer Patient Tobacco Use Status: Never used Tobacco e-Cigarette/Vaping Use: Never Used service: No Current occupational status: employed 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 Current occupational exposures/hazards: No Cognitive needs: No Hearing needs: No Vision needs: No Review of Systems Const All systems reviewed & are unremarkable except as noted in HPI and below Physical Exam Vital Signs: Last Vital Signs Temp 98.1 F 11/28/24 11:39 Pulse 58 11/28/24 11:39 Resp 16 11/28/24 11:39 BP 100/64 11/28/24 11:39 Pulse Ox 97 11/28/24 11:39 Oxygen Delivery Method Room Air 11/28/24 11:39 BMI result Body Mass Index 30.0 Assessment & Plan Assessment & Plan (1) Headache: Code(s): R51.9 - Headache, unspecified Qualifiers: Headache type: post-traumatic Headache chronicity pattern: acute headache Intractability: not intractable Qualified Code(s): G44.319 - Acute post-traumatic headache, not intractable (2) Post concussion syndrome: Code(s): F07.81 - Postconcussional syndrome Plan 1. Headache - The patient is advised to take Tylenol or Motrin for headache relief and to rest until symptoms improve. - A work note will be provided for the patient to take two days off work, with a return on Thursday. - If symptoms do not improve, the patient should follow up with his primary care provider. 2. Post-Concussion Syndrome - The patient is experiencing symptoms consistent with post-concussion syndrome, including headaches and dizziness. - Management includes symptomatic treatment with Tylenol or Motrin and rest. Coding Level of Care Code Est Pt Level 4 (36945) Diagnoses Acute post-traumatic headache, not intractable G44.319 Headache type: post-traumatic Headache chronicity pattern: acute headache Intractability: not intractable Post concussion syndrome F07.81
[2024-11-28 11:39] VITALS: BP 100/64; PULSE 58; RESP 16; TEMP 36.7; O2SAT 97
--- OUTSIDE RECORDS SUMMARY | 2024-11-28 13:40 | XMS_ITS | Encounter Summary ---
Author Organization [facility] Address [address] [place] [address] Care Team Providers Care Locomotive Crane Engineer Name Role Phone Unavailable Primary Care Provider Unavailabl e Encounter Details Date Type Department Care Team (Late st Contact Info) Description 08/04/2019 Lab Requisition [facility] Specimens [address] [place] [address] Cornel Snow MD [address] [place] [address] Encounter for screening for other [...] Date/Time Associated Diagnosis Comments SARS COV-2 (COVID-19) RNA-[facility] ([facility]) Routine 08/04/2019 7:14 PM EDT Encounter for screening for other viral diseases documented in this encounter Results * SARS CoV-2 (COVID-19) PCR - [facility] ([facility]) (08/04/2019 7:14 PM EDT) SARS-CoV-2 RNA (COVID-19) Not Detected Not Detected 08/05/2019 6:53 PM EDT [facility] Comment: Negative results do not preclude COVID-19 and should not be the sole basis for patient management decisions. Clinical disease and risk factors should also be considered. This real-time RT-PCR assay was developed by [employer] and targets three regions of the SARS-CoV-2 genome: orf1ab, spike (S) gene, nucleocapsid (N) gene. It has been validated for clinical use by the [facility]. TaqPath COVID-19 Combo Kit is [...] genome variability. Fact Sheet for Healthcare Providers: https://www.fda.gov/media/435455/download Fact Sheet for Patients: https://www.fda.gov/media/687835/download Test performance has not been evaluated in asymptomatic patients. Test ordering and result interpretation is at the discretion of the ordering provider. Viral NASOPHARYNGEAL STRUCTURE / Unknown 08/04/2019 7:14 PM EDT 08/04/2019 7:14 PM EDT Cornel Snow MD MICROBIOLOGY - GENERAL OR DERABLES Final Result [facility] [address] [place] [address], [facility] [phone] documented in this encounter Visit Diagnoses Diagnosis Encounter for screening for other viral diseases documented in this encounter Additional Health Concerns Infection Onset Date Last Indicated Resolved Time R/O COVID-19 08/04/2019 08/04/2019 08/05/2019 6:53 PM EDT documented as of this encounter
--- OUTSIDE RECORDS SUMMARY | 2024-11-28 13:40 | XMS_ITS | Clinical Summary ---
Author Organization [facility] Address [address] [place] [address] Phone Care Team Providers Care Tieing Machine Operator Name Role Phone Physician, Pcp Unknown Primary [...] patient's age to complete this topic Insurance [facility] PUBLIC [employer] Care Teams Tieing Machine Operator Relationship Specialty Start Date End Date Physician, Pcp Unknown PCP - General 03/10/24
--- OUTSIDE RECORDS SUMMARY | 2024-11-28 13:40 | XMS_ITS | Clinical Summary ---
Author Organization [address] Address [address] [place] [phone] Care Team Providers Care Tour Manager Name Role Phone Unavailable Primary Care [...]
--- OUTSIDE RECORDS SUMMARY | 2024-11-28 13:40 | XMS_ITS | Clinical Summary ---
Author Organization [facility] Address [address] [place] [address] Care Team Providers Care Kettle Hand Name Role Phone Non-Sechc, Provider Primary Care Provider [phone] Source Comments PLEASE NOTE, if this patient [...] mcg/actuation inhalerIndication s:Mild intermittent asthma, uncomplicated ([facility]) Inhale 2 Puffs into the lungs [...] organs 01/12/2013 Mild intermittent asthma, uncomplicated ([facility] ) 11/03/2012 Overview (07/21/2017): 07/21/2017 Discussed importance [...] Plan of Treatment Not on file Insurance [employer] [facility] Member Subscriber Plan / Payer (Ef fective 2017-Present) Name:Vineet Mcnulty Riddhi Relation to Subscriber:Self Name:Vineet Mcnulty Payer ID:[id number] Group ID:Not on file Type:Medicaid Address: [facility] [id number] [facility] Care Teams Kettle Hand Relationship Specialty Start Date End Date Non-Sechc, Provider [address] [place] [address] PCP - General Metal Spinner 05/03/19
== END 2024-11-28 12:31 | disposition home or self-care (01) ==
PROVIDERS: PCP Family Medicine; Visit Provider Physician Assistant Medical
DX: G44.319 Acute post-traumatic headache, not intractable (principal); F07.81 Postconcussional syndrome

== ENCOUNTER → 2024-11-28 10:36 | Outpatient (BNVA) | payer OTHER, SELFPAY | PROVIDERS: PCP Family Medicine; Visit Provider Physician Assistant Medical | DX: G44.319 Acute post-traumatic headache, not intractable (principal); F07.81 Postconcussional syndrome | CPT/HCPCS: 99212 ==

== ENCOUNTER 2024-12-12 15:57 | Outpatient (REF) | payer OTHER, SELFPAY | END 2024-12-12 15:58 | disposition home or self-care (01) | LOC: HO.LAB 15:57 | PROVIDERS: PCP Family Medicine; Visit Provider Nurse Practitioner Family | DX: N52.9 Male erectile dysfunction, unspecified (principal); R31.29 Other microscopic hematuria; F52.0 Hypoactive sexual desire disorder; L72.3 Sebaceous cyst; Z13.89 Encounter for screening for other disorder | CPT/HCPCS: 81003; 88112 ==

== ENCOUNTER 2024-12-12 15:57 | Outpatient (AMB) | payer OTHER, SELFPAY ==
--- NOTE | 2024-12-12 15:59 | A.OFFVIS_ITS ---
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: 1YR follow up Intake Note: Patient is present for 1Y F/U Urology Medication:NONE Antibiotic Allergy:NONE Blood Thinner:NONE Binding Stitcher Required: No Binding Stitcher Services: Binding Stitcher Present Binding Stitcher Name: [id number] Allergies aspirin Allergy (Mild, Verified 12/12/24 16:16) rash, swelling Medication List - Last Reconciled 12/12/24 by BETSEY LangstonP- albuterol sulfate 90 mcg/actuation 2 puffs inhalation Q6H PRN fluticasone propionate 50 mcg/actuation (Flonase Allergy Relief) 1 spray intranasal Q12H 30 days tirzepatide (weight loss) (Zepbound) 10 mg (0.5 mL) subcut QWEEK tirzepatide (weight loss) (Zepbound) 12.5 mg (0.5 mL) subcut QWEEK tirzepatide (weight loss) (Zepbound) 15 mg (0.5 mL) subcut QWEEK tirzepatide (weight loss) (Zepbound) 5 mg (0.5 mL) subcut QWEEK tirzepatide (weight loss) (Zepbound) 7.5 mg (0.5 mL) subcut QWEEK HPI Comments Details: Vineet is a very pleasant 43-year-old Guyanese-speaking male patient of Dr. Mccord. He has a past medical history of asthma, obesity, and vertigo. He presents to the office today for follow-up of his scrotal sebaceous cysts and microscopic hematuria. In discussion with the patient today he reports to be doing and feeling well. He denies having had any bothersome urinary issues since his last office visit here. He reports since surgical procedure with Dr. Tan 11/05 he has not noted any reoccurrence of sebaceous cyst to the scrotum. He does however report having noted 2-3 episodes of ED over the last year. Previous labs are as follows: PSA: 04/07 0.5, 11/06 0.5 When asked he denies urinary urgency, urinary frequency, incontinence, nocturia, hematuria, dysuria, foul smelling urine, changes to urinary stream, flank pain, fever, and or chills. He is happy with his current voiding parameters. In office urinalysis results reviewed with the patient today. We discussed at length potential causes of microscopic hematuria and erectile dysfunction as well as further workup of these urological conditions and risks and benefits of these interventions. All questions were answered. He otherwise offers no other issues or concerns at this time. Urine cytology: Negative for high-grade urothelial carcinoma [facility] Medical History Overweight Back pain Obesity Pain of right great toe Asthma Vertigo Surgical History History of surgery of head History of testicular surgery Family History Father Heart disease No family history of mental disorder Mother Heart disease Diabetes Hypertension Seizures No family history of mental disorder Social History Household Members: Spouse and Family Housing: Apartment Alcohol intake: current Alcohol intake frequency: holidays/special occasions only Alcohol type: beer Patient Tobacco Use Status: Never used Tobacco e-Cigarette/Vaping Use: Never Used service: No Current occupational status: employed 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 Current occupational exposures/hazards: No Cognitive needs: No Hearing needs: No Vision needs: No Review of Systems Const All systems reviewed & are unremarkable except as noted in HPI and below Physical Exam Const General: cooperative, healthy appearing, comfortable, no acute distress, well developed, alert and awake Orientation/consciousness: patient oriented x3 Limitations: language barrier HEENT Head: Yes normal to inspection, Yes normocephalic and Yes atraumatic Ears: hearing grossly normal bilaterally Eyes General: appearance normal, both eyes and all related structures Neck Neck: Yes normal visual inspection and Yes trachea midline Chest Chest palpation & inspection: normal inspection of the chest Resp Effort & Inspection: normal respiratory effort and able to speak in complete sentences Cardio Rate: regular rate GI Inspection: Yes normal to inspection General: Yes no CVA tenderness Penis: normal penis and uncircumcised Meatus: meatus normal Scrotum: scrotum normal and other Testes: Testes normal Back/Spine/Pelvis Back: no CVA tenderness Skin General skin exam: no rashes or lesions noted Neuro General: patient oriented x3 Extrem General: Yes normal to inspection Psych Appearance: grossly normal and well kempt Mental Status: mental status grossly normal Speech and movement: Normal speech and movement present and Clear speech present Affect: normal affect Attitude: cooperative Thought process: Normal thought process present Thought content: Normal thought content present Insight: Fair insight present (Psych) Judgement: Fair judgement present (Psych) Results AMB Urinalysis, Automated UA Leukoctes 0 Rosa Maria/uL Last Edit by Gregory Mahan [facility] on 12/12/24 16:18 UA Nitrite Negative Last Edit by Gregory Mahan [facility] on 12/12/24 16:18 UA Urobilinogen 0.2 mg/dL Last Edit by Gregory Mahan [facility] on 12/12/24 16:1 8 UA Protein 15 mg/dL Last Edit by Gregory Mahan [facility] on 12/12/24 16:18 UA pH 6.0 Last Edit by Gregory Mahan [facility] on 12/12/24 16:18 UA Blood 10 Severo/uL Last Edit by Gregory Mahan [facility] on 12/12/24 16:18 UA Specific Otter 1.025 Last Edit by Gregory Mahan [facility] on 12/12/24 16: 18 UA Ketone Negative Last Edit by Gregory Mahan [facility] on 12/12/24 16:18 UA Bilirubin 0 mg/dL Last Edit by Gregory Mahan [facility] on 12/12/24 16:18 UA Glucose 0 mg/dL Last Edit by Gregory Mahan [facility] on 12/12/24 16:18 Results Reviewed Results Reviewed: Laboratory Last Values Urine pH (Auto) 6.0 12/12/24 16:17 Specific Otter (Auto) 1.025 12/12/24 16:17 Urine Protein (Auto) 15 mg/dL 12/12/24 16:17 Glucose (UA)(Auto) 0 mg/dL 12/12/24 16:17 Urine Ketones (Auto) Negative 12/12/24 16:17 Urine Blood (Auto) 10 Severo/uL 12/12/24 16:17 Urine Nitrite (Auto) Negative 12/12/24 16:17 Urine Bilirubin (Auto) 0 mg/dL 12/12/24 16:17 Urine Urobilinogen (Auto) 0.2 mg/dL 12/12/24 16:17 Leukocyte Esterase (Auto) 0 Rosa Maria/uL 12/12/24 16:17 Assessment & Plan Assessment & Plan (1) Erectile dysfunction: Code(s): N52.9 - Male erectile dysfunction, unspecified Category: Medical (2) Lack of libido: Code(s): F52.0 - Hypoactive sexual desire disorder Category: Medical (3) Scrotal sebaceous cyst: Code(s): L72.3 - Sebaceous cyst Category: Medical (4) Microscopic hematuria: Code(s): R31.29 - Other microscopic hematuria Category: Medical Plan In office urinalysis results reviewed with the patient today; as noted above; will send for urine cytology. We did discussed at length potential causes of microscopic hematuria as well as ED; we discussed further treatment options and risks and benefits of these treatment options. All questions were answered. He currently denies any bothersome urinary issues. He reports be happy with current voiding parameters. Will obtain testosterone and PSA for further assessment evaluation. We did discussed lifestyle modifications to assist with ED. Follow-up in 3-6 months with labs to be completed prior; or sooner with any issues, concerns, and or questions. Orders: Orders Urine Cytology Today R31.29 - Other microscopic hematuria Testosterone, Free/Total Today F52.0 - Hypoactive sexual desire disorder, N52.9 - Male erectile dysfunction, unspecified Prostate Specific Antigen Today F52.0 - Hypoactive sexual desire disorder, N52.9 - Male erectile dysfunction, unspecified AMB Urinalysis Automated Today Z13.9 - Encounter for screening, unspecified Patient Instructions: The patient had an opportunity to ask questions regarding the treatment plan. All questions were answered. Physical exam, labs, and imaging were discussed and reviewed in detail. As well as risks, benefits, and discussion of treatment choices. No major barriers to understanding were identified. The patient expressed understanding and agreement with the above treatment plan. The patient was made aware they should contact our office by phone for worsening of their current condition, the appearance of new symptoms, or with any questions or concerns. Compliance is encouraged with any medications and follow up testing that is ordered. It is a privilege to be allowed the opportunity to participate in? your urological care.? Again, if you have any questions or concerns If you have any questions or concerns please do not hesitate to contact me. The office is [phone]. This note is constructed using voice recognition software. While every effort has been made to ensure accuracy oyster tonger errors may have been included. Yours sincerely, Carito Rudd, VIDEO GAME CREATOR-BC Coding Level of Care Code Est Pt Level 3 (65020) Diagnoses Erectile dysfunction N52.9 Lack of libido F52.0 Scrotal sebaceous cyst L72.3 Microscopic hematuria R31.29
--- OUTSIDE RECORDS SUMMARY | 2024-12-12 18:03 | XMS_ITS | Clinical Summary ---
Author Organization [address] Address [address] [place] [phone] Care Team Providers Care Gear Keeper Name Role Phone Unavailable Primary Care Provider [...] 2000 Lipid disorder screening 2020 Influenza vaccine 10/14/2024 Covid-19 vaccine series ( - 2023- season) 2024 RSV Immunization (1 - 1-dose 75+ series) [...]
--- OUTSIDE RECORDS SUMMARY | 2024-12-12 18:03 | XMS_ITS | Clinical Summary ---
Author Organization [facility] Address [address] [place] [address] Care Team Providers Care Post Hole Digger Name Role Phone Unavailable Primary Care Provider [...] COVID-19 Vaccine ( - 2023-2 5 season) 2024 Influenza (#1) 2024 Zoster (Shingrix) (1 of [...] to complete this topic Insurance * Guarantor: [id number] STAFFING Account Type Relation to Patient Date of Phone Billing Address Worker's Comp [address] [place] [id number] [employer] . [address] [place] [id number]
--- OUTSIDE RECORDS SUMMARY | 2024-12-12 18:03 | XMS_ITS | Clinical Summary ---
Author Organization [facility] Address [address] [place] [address] Phone Care Team Providers Care Professor Of Physical Education Name Role Phone Physician, Pcp Unknown Primary [...] patient's age to complete this topic Insurance [facility] PUBLIC PLANS Care Teams Professor Of Physical Education Relationship Specialty Start Date End Date Physician, Pcp Unknown PCP - General 03/10/24
--- OUTSIDE RECORDS SUMMARY | 2024-12-12 18:03 | XMS_ITS | Encounter Summary ---
Author Organization [facility] Address [address] [place] [address] Care Team Providers Care Roughing Mill Operator Name Role Phone Unavailable Primary Care Provider Unavailabl e Encounter Details Date Type Department Care Team (Late st Contact Info) Description 08/04/2019 Lab Requisition [facility] Specimens [address] [place] [address] Cornel Snow MD [address] [place] [address] Encounter for screening for other [...] Date/Time Associated Diagnosis Comments SARS COV-2 (COVID-19) RNA-[facility] ([facility]) Routine 08/04/2019 7:14 PM EDT Encounter for screening for other viral diseases documented in this encounter Results * SARS CoV-2 (COVID-19) PCR - [facility] ([facility]) (08/04/2019 7:14 PM EDT) SARS-CoV-2 RNA (COVID-19) Not Detected Not Detected 08/05/2019 6:53 PM EDT [facility] Comment: Negative results do not preclude COVID-19 and should not be the sole basis for patient management decisions. Clinical disease and risk factors should also be considered. This real-time RT-PCR assay was developed by [employer] and targets three regions of the SARS-CoV-2 genome: orf1ab, spike (S) gene, nucleocapsid (N) gene. It has been validated for clinical use by the [facility]. TaqPath COVID-19 Combo Kit [...] genome variability. Fact Sheet for Healthcare Providers: https://www.fda.gov/media/831787/download Fact Sheet for Patients: https://www.fda.gov/media/178407/download Test performance has not been evaluated in asymptomatic patients. Test ordering and result interpretation is at the discretion of the ordering provider. Viral NASOPHARYNGEAL STRUCTURE / Unknown 08/04/2019 7:14 PM EDT 08/04/2019 7:14 PM EDT Cornel Snow MD MICROBIOLOGY - GENERAL OR DERABLES Final Result [facility] [address] [place] [address], [facility] [phone] documented in this encounter Visit Diagnoses Diagnosis Encounter for screening for other viral diseases documented in this encounter Additional Health Concerns Infection Onset Date Last Indicated Resolved Time R/O COVID-19 08/04/2019 08/04/2019 08/05/2019 6:53 PM EDT documented as of this encounter
--- OUTSIDE RECORDS SUMMARY | 2024-12-12 18:03 | XMS_ITS | Clinical Summary ---
Author Organization [facility] Address [address] [place] [address] Phone Care Team Providers Care Supervisor Plastic Sheets Name Role Phone Nataly España MEN'S BASKETBALL COACH Unavailable [phone] Nataly Lara APRN Primary Care Provider [email or web address] Allergies Active Allergy Reactions Criticality Noted Date Comments Aspirin 07/24/2015 Medications acetaminophen-c odeine (TYLENOL #3) 300-30 mg per tablet Take 1 tablet by mouth every 4 (four) hours as needed for pain (specific location in comments) (back pain). 15 tablet 0 11/09/2015 Active oxyCODONE 5 MG immediate release tablet Take 1 tablet (5 mg total) by mouth every 6 (six) hours as needed for moderate pain. 15 tablet 0 11/12/2015 Active CYCLOBENZAPRINE HCL (FLEXERIL ORAL) Active lidocaine (LIDODERM) 5 % Place 1 patch onto the skin daily. Remove & Discard patch within 12 hours or as directed by 10 patch 01/28/2016 Active Active Problems No known active problems Social History Tobacco Use Types Packs/Day Years Used Date Smoking Tobacco: Never Education Answer Date Recorded Are you interested in more education? Not on ileana e 07/11/2022 Are you concerned about learning? Not on file 07/11/2022 No 07/11/2022 No 07/11/2022 Digital Access Answer Date Recorded No 08/11/2022 No 08/11/2022 No 08/11/2022 Reliable internet access at home? Not on file 08/11/2022 Device with a working camera? Not on file Sex and Gender Information Value Date Recorded Sex Assigned at Not on file Legal Sex Male 7:11 AM EDT Gender Identity Not on file Sexual Orientation Not on file Last Filed Vital Signs Vital Sign Reading Time Taken Comments Blood Pressure 119/86 07/21/2016 9:58 AM EDT Pulse 77 07/21/2016 9:58 AM EDT Temperature 37.1 C (98.7 F) 07/21/2016 9:58 AM EDT Respiratory Rate 18 07/21/2016 9:58 AM EDT Oxygen Saturation 98% 07/21/2016 9:58 AM EDT Inhaled Oxygen Concentration - - Weight 115.7 kg (255 lb) 07/21/2016 9:58 AM EDT Height 177.8 cm (5' 10 ) 07/21/2016 9:58 AM EDT Body Mass Index 36.59 07/21/2016 9:58 AM EDT Plan of Treatment Health Maintenance Due Date Last Done Comments LIPID PANEL 1980 DEPRESSION SCREENING 1992 HEPATITIS C SCREENING 1998 HIV ONE-TIME SCREENING (18-6 5 YEARS) 1998 Adult Td,Tdap Booster 02/17/2022 02/18/2012 COVID-19 VACCINE ( - 2023-2 5 season) 2023 INFLUENZA VACCINE (#1) 2024 02/18/2012 SMOKING STATUS SCREENING (On ce After 26 Yrs) Completed 02/13/2016 PNEUMOCOCCAL VACCINES (0-49 years) Aged Out 2017 No longer eligible based on patient's age to complete this topic HEPATITIS A VACCINES Aged Out No long er eligible based on patient's age to complete this topic HIB VACCINES Aged Out No longer eligi ble based on patient's age to complete this topic MENINGOCOCCAL VACCINES (ACWY) Aged Out No longer eligible based on patient's age to complete this topic MENINGOCOCCAL VACCINES (B) Aged Out N o longer eligible based on patient's age to complete this topic Medical Devices Not on file Insurance [facility] INSURANCE [facility] Care Teams Supervisor Plastic Sheets Relationship Specialty Start Date End Date Nataly Lara APRN [email or web address] PCP - General Family Medicine 01/28/16 Nataly España NP [address] [place] [address] Internal Medicine 11/09/14 Additional Source Comments The information contained in this document represents components of the legal health record. It is not the complete legal health record.[facility]
--- OUTSIDE RECORDS SUMMARY | 2024-12-12 18:03 | XMS_ITS | Encounter Summary ---
Author Organization [facility] Address [address] [place] [phone] Phone Care Team Providers Care Research Microbiologist Name Role Phone Pcp, Not Required Primary Care Provider Nataly Khan PRODUCER DIRECTOR Unavailable Nataly Lara APRN Primary Care Provider [email or web address] Encounter Details Date Type Department Care Team (Late st Contact Info) Description 11/26/2015 Ancillary Orders [facility] Imaging - MRI, [facility] [address] [place] [address] Nataly Lara APRN [email or web address] Social History Tobacco Use Types Packs/Day Years Used Date Smoking Tobacco: Never Sex and Gender Information Value Date Recorded Sex Assigned at Not on file Legal Sex Male 7:11 AM EDT Gender Identity Not on file Sexual Orientation Not on file documented as of this encounter Plan of Treatment Not on file documented as of this encounter Visit Diagnoses Not on filedocumented in this encounter Care Teams Research Microbiologist Relationship Specialty Start Date End Date Pcp, Not Required [address] [place] [address] PCP - General 11/09/14 01/27/16 Nataly Lara APRN [email or web address] PCP - General Family Medicine 01/28/16 Nataly España NP [address] [place] [address] [email or web address] Internal Medicine 11/09/14 documented as of this encounter Additional Source Comments The information contained in this document represents components of the legal health record. It is not the complete legal health record.[facility]
== END 2024-12-12 16:30 | disposition home or self-care (01) ==
LOC: HO.HUSH 15:58
PROVIDERS: PCP Family Medicine; Visit Provider Nurse Practitioner Family
DX: N52.9 Male erectile dysfunction, unspecified (principal); F52.0 Hypoactive sexual desire disorder; L72.3 Sebaceous cyst; R31.29 Other microscopic hematuria; Z13.9 Encounter for screening, unspecified
CPT/HCPCS: 99213

== ENCOUNTER 2025-01-24 00:47 | Emergency (ER) | payer OTHER, SELFPAY ==
--- NOTE | ~2025-01-24 | XR_ITS ---
CLINICAL HISTORY: chest pain CHEST X-RAY FRONTAL AND LATERAL VIEWS COMPARISON: 12/23/2022. FINDINGS: Frontal and lateral views of the chest were performed. The cardiac size and mediastinal silhouette are within normal limits. The lungs are clear. There are no acute infiltrates or pleural effusions. There is no pneumothorax. IMPRESSION: 1. No acute disease. This document has been electronically signed by: Vicente Rollins M.D. on 01/24/2025 03:13:05
--- NOTE | 2025-01-24 00:49 | ECG_ITS ---
Test Reason : CHEST PAIN Blood Pressure : */* mmHG Vent. Rate : 54 BPM Atrial Rate : 54 BPM P-R Int : 190 ms QRS Dur : 102 ms QT Int : 436 ms P-R-T Axes : 61 -25 10 degrees QTcB Int : 413 ms Sinus bradycardia Otherwise normal ECG No previous ECGs available Referred By: Generic ED Physician Electronically Signed By: SUSAN RAMOS MD
[2025-01-24 00:55] VITALS: BP 107/59; PULSE 59; RESP 20; TEMP 36; O2SAT 98; BMI 28.3
--- OUTSIDE RECORDS SUMMARY | 2025-01-24 01:30 | XMS_ITS | Clinical Summary ---
Author Organization [facility] Address [address] [place] [address] Care Team Providers Care Stone Layout Marker Name Role Phone Unavailable Primary Care Provider [...] - 19+ 3-dose series) 01/01/2000 COVID-19 Vaccine (2024-2 6 season) 2024 Influenza (#1) 2024 Zoster (Shingrix) [...] to complete this topic Insurance * Guarantor: [id number] STAFFING Account Type Relation to Patient Date of Phone Billing Address Worker's Comp [address] [place] [phone] [employer] . [address] [place] [phone]
--- OUTSIDE RECORDS SUMMARY | 2025-01-24 01:30 | XMS_ITS | Clinical Summary ---
Author Organization [facility] Address [address] [place] [address] Phone Care Team Providers Care Php Mysql Developer Name Role Phone Physician, Pcp Unknown Primary [...] of 3 - 19+ 3-dose series) 01/01/2000 HPV Vaccines (1 - 3-dose SCD M series) 01/01/2008 Pneumococcal Vaccine: Pediatrics (0 to 5 Years) [...] 11/26/2020, 07/09/2020 Influenza Vaccine (#1) 2024 02/18/2012 RSV Immunization Adult Patients (1 - 1-dose 75+ series) 01/01/2056 HIB Vaccines Aged Out No longer eligi [...] patient's age to complete this topic Insurance [facility] PUBLIC PLANS Care Teams Php Mysql Developer Relationship Specialty Start Date End Date Physician, Pcp Unknown PCP - General 03/10/24
--- OUTSIDE RECORDS SUMMARY | 2025-01-24 01:30 | XMS_ITS | Clinical Summary ---
Author Organization [address] Address [address] [place] [phone] Care Team Providers Care Solution Architect Name Role Phone Unavailable Primary Care Provider [...] vaccine 10/14/2024 Covid-19 vaccine series ( - 2024- season) 2024 RSV Immunization (1 - 1-dose [...]
--- OUTSIDE RECORDS SUMMARY | 2025-01-24 01:30 | XMS_ITS | Encounter Summary ---
Author Organization [facility] Address [address] [place] [address] Phone Care Team Providers Care Net Application Architect Name Role Phone Pcp, Not Required Primary Care Provider Nataly Khan MARKETING AMBASSADOR Unavailable Nataly Lara APRN Primary Care Provider [email or web address] Encounter Details Date Type Department Care Team (Late st Contact Info) Description 11/26/2015 Ancillary Orders [facility] Imaging - MRI, [facility] [address] [place] [address] Nataly Lara APRN [email or web address] Social History Tobacco Use Types Packs/Day Years [...] on filedocumented in this encounter Care Teams Net Application Architect Relationship Specialty Start Date End Date Pcp, Not Required [address] [place] [address] PCP - General 11/09/14 01/27/16 Nataly Lara APRN [email or web address] PCP - General Family Medicine 01/28/16 Nataly España NP [address] [place] [address] [email or web address] Internal Medicine 11/09/14 documented as of this encounter Additional Source Comments The information contained in this document represents components of the legal health record. It is not the complete legal health record.[facility]
--- OUTSIDE RECORDS SUMMARY | 2025-01-24 01:30 | XMS_ITS | Clinical Summary ---
Author Organization [facility] Address [address] [place] [address] Phone Care Team Providers Care Clerical Methods Analyst Name Role Phone Nataly España ADVERTISING SPECIALIST Unavailable Nataly Lara APRN Primary Care Provider [email or web address] Allergies Active Allergy Reactions Criticality Noted Date [...] YEARS) 1998 Adult Td,Tdap Booster 02/17/2022 02/18/2012 INFLUENZA VACCINE (#1) 2024 02/18/2012 COVID-19 VACCINE ( - 2024-2 6 season) 2024 SMOKING STATUS SCREENING (On ce After 26 [...] topic Medical Devices Not on file Insurance [facility] INSURANCE [facility] Care Teams Clerical Methods Analyst Relationship Specialty Start Date End Date Nataly Lara APRN [email or web address] PCP - General Family Medicine 01/28/16 Nataly España NP [address] [place] [address] Internal Medicine 11/09/14 Additional Source Comments The information contained in this document represents components of the legal health record. It is not the complete legal health record.[facility]
--- OUTSIDE RECORDS SUMMARY | 2025-01-24 01:30 | XMS_ITS | Encounter Summary ---
Author Organization [facility] Address [address] [place] [address] Care Team Providers Care Base Engineer Name Role Phone Unavailable Primary Care Provider Unavailabl e Encounter Details Date Type Department Care Team (Late st Contact Info) Description 08/04/2019 Lab Requisition [facility] Specimens [address] [place] [address] Cornel Snow MD [address] [place] [address] Encounter for screening for other [...] Date/Time Associated Diagnosis Comments SARS COV-2 (COVID-19) RNA-[facility] ([facility]) Routine 08/04/2019 7:14 PM EDT Encounter for screening for other viral diseases documented in this encounter Results * SARS CoV-2 (COVID-19) PCR - [facility] ([facility]) (08/04/2019 7:14 PM EDT) SARS-CoV-2 RNA (COVID-19) Not Detected Not Detected 08/05/2019 6:53 PM EDT [facility] Comment: Negative results do not preclude COVID-19 and should not be the sole basis for patient management decisions. Clinical disease and risk factors should also be considered. This real-time RT-PCR assay was developed by [employer] and targets three regions of the SARS-CoV-2 genome: orf1ab, spike (S) gene, nucleocapsid (N) gene. It has been validated for clinical use by the [facility]. TaqPath COVID-19 Combo Kit is [...] genome variability. Fact Sheet for Healthcare Providers: https://www.fda.gov/media/571560/download Fact Sheet for Patients: https://www.fda.gov/media/093959/download Test performance has not been evaluated in asymptomatic patients. Test ordering and result interpretation is at the discretion of the ordering provider. Viral NASOPHARYNGEAL STRUCTURE / Unknown 08/04/2019 7:14 PM EDT 08/04/2019 7:14 PM EDT Cornel Snow MD MICROBIOLOGY - GENERAL OR DERABLES Final Result [facility] [address] [place] [address], [facility] [phone] documented in this encounter Visit Diagnoses Diagnosis Encounter for screening for other viral diseases documented in this encounter Additional Health Concerns Infection Onset Date Last Indicated Resolved Time R/O COVID-19 08/04/2019 08/04/2019 08/05/2019 6:53 PM EDT documented as of this encounter
--- NOTE | 2025-01-24 01:40 | ED_ITS ---
HPI - Chest Pain General Chief Complaint: Chest Pain Stated Complaint: CP Time Seen by Provider: 01/24/25 01:40 Source: patient, family, RN notes reviewed, old records reviewed and public welfare worker Mode of arrival: ambulatory Limitations: language barrier History of Present Illness ED Provider: Dr. Starla Leach HPI narrative: 44-year-old male with a history of obesity on Zepbound, asthma, hemolytic anemia presenting with chest pain located in the anterior chest wall ongoing since this afternoon. Patient states around noon time after lunch, he developed pain in the center of his chest that is worse with deep breaths and movement of his chest wall. Denies specific injury though he admits he has been lifting weights lately. Does not remember injuring his chest. No reported fever. Has asthma but does not feel that his inhaler has improved his chest discomfort. No reported cough or cold-type symptoms. On nausea, vomiting, bowel changes, urinary complaints, lower extremity edema or pain. Of note, his father developed heart disease at a young age around 60. No other family history of early onset heart disease or sudden cardiac . Patient is a nonsmoker. Related Data Previous Rx's ?Medication ?Instructions ?Recorded fluticasone propionate 50 1 spray intranasal Q12H 30 d ays 06/03/22 mcg/actuation nasal #16 grams spray,suspension (Flonase Allergy Relief) tirzepatide (weight loss) 5 mg/0.5 5 mg (0.5 mL) subcu t QWEEK #2 mL 07/05/24 mL subcutaneous pen injector (Zepbound) tirzepatide (weight loss) 7.5 7.5 mg (0.5 mL) subcut Q WEEK #2 mL 08/24/24 mg/0.5 mL subcutaneous pen injector (Zepbound) albuterol sulfate 90 mcg/actuation 2 puff inhalation Q 6H PRN asthma 09/22/24 aerosol inhaler #6.7 grams tirzepatide (weight loss) 10 10 mg (0.5 mL) subcut QWE EK #2 mL 09/25/24 mg/0.5 mL subcutaneous pen injector (Zepbound) tirzepatide (weight loss) 12.5 12.5 mg (0.5 mL) subcut QWEEK #2 mL 10/26/24 mg/0.5 mL subcutaneous pen injector (Zepbound) tirzepatide (weight loss) 15 15 mg (0.5 mL) subcut QWE EK #2 mL 12/02/24 mg/0.5 mL subcutaneous pen injector (Zepbound) folic acid 1 mg tablet 1 mg PO DAILY #90 tabs 12/30 cyanocobalamin (vitamin B-12) 500 500 mcg PO DAILY #90 tabs 01/02/25 mcg tablet (Vitamin B-12) cyclobenzaprine 10 mg tablet 10 mg PO TID #10 tabs 02/07 methylprednisolone 4 mg tablets in 4 mg PO DAILY #21 e a 01/24/25 a dose pack (Medrol (Maxi)) Allergies Allergy/AdvReac Type Severity Reaction Status Date / Time aspirin Allergy Mild rash, Verified 01/24/25 00:58 swelling Review of Systems 2 Review of Systems: As per HPI, full review of systems performed and negative but for the above mentioned pertinent positives and negatives. [facility] Past Medical History Medical History Overweight Back pain Obesity Pain of right great toe Asthma Vertigo Surgical History History of surgery of head History of testicular surgery Family History Family History Father Heart disease No family history of mental disorder Mother Heart disease Diabetes Hypertension Seizures No family history of mental disorder Social History Social History Household Members: Spouse and Family Housing: Apartment Alcohol intake: current Alcohol intake frequency: holidays/special occasions only Alcohol type: beer Patient Tobacco Use Status: Never used Tobacco e-Cigarette/Vaping Use: Never Used service: No Current occupational status: employed 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 SKIN: Normal skin color for ethnicity, warm, dry, intact, no rashes noted. HEENT: Normocephalic, atraumatic, no stridor, posterior oropharynx nonerythematous, dentition intact, EOMI. NECK: Soft, supple, full ROM, midline structures nontender, no step-offs, no deformities, no lymphadenopathy. CHEST: Heart regular rhythm, no murmurs, symmetric chest rise and fall, anterior chest wall tenderness to palpation, no crepitus. PULMONARY: Clear to auscultation bilaterally, no labored breathing, no wheezes/rhales/ rhonchi. ABDOMINAL: Soft, nondistended, nontender, positive bowel sounds in all quadrants. : Deferred. MUSCULOSKELETAL: Normal tone, full range of motion, no deformities, no peripheral edema. NEURO: Alert and oriented x3, CN II through XII intact, equal strength and sensation bilateral upper and lower extremities, no focal neurologic deficits. PSYCHIATRIC: Anxious affect, fluid speech, good eye contact and appropriate demeanor. Vital Signs: Vital Signs: Last Vital Signs Temp 98.5 F 01/24/25 04:04 Pulse 56 01/24/25 04:04 Resp 16 01/24/25 04:04 BP 103/65 01/24/25 04:04 Pulse Ox 100 01/24/25 04:04 O2 Del Method Room Air 01/24/25 04:04 BMI result Body Mass Index 28.3 Medications Administered Discontinued Medications Generic Name Dose Route Start Last Admin Trade Name Freq PRN Reason Stop Dose Admin Dexamethasone 6 mg 01/24/25 02:11 01/24/25 02:26 Dexamethasone 6 Mg Tablet PO 01/24/25 02:12 6 mg ONCE ONE Administration Medical Decision Making Medical Decision Making [facility] Narrative: Patient presents today with a chief complaint of chest pain. Differential diagnosis includes, but is not limited to, acute coronary syndrome, musculoskeletal pain, pneumothorax, GERD, pleurisy, pulmonary embolism, dissection, among others. I will order EKG, chest x-ray, the laboratory workup including cardiac enzymes to further evaluate for etiology. Patient's heart score is 1 for his family history. Otherwise, he is well- appearing with a very reassuring workup today. Chest x-ray is clear. He has improved after Decadron. Plan for discharge home with Medrol Dosepak and cyclobenzaprine. Using shared decision making, plan for discharge home to follow-up with primary care and/or specialist. Patient understands and agrees with plan for discharge. Discharged home in stable condition. Differential Diagnosis Differential Diagnoses: The differential diagnosis associated with the presentation includes (As above) Admission/Observation Consideration of admission/observation: Escalation of care including admission/observation considered Lab Data MDM Lab Attestation statement: I reviewed the patient's lab results. 01/24/25 01:38 01/24/25 01:38 Labs: Lab Results 01/24/25 Range/Units 01:38 WBC 7.5 (4.8-10.8) X10*3/uL RBC 4.55 L (4.60-5.80) X10*6/uL Hgb 13.5 L (14.0-18.0) g/dl Hct 41.7 L (42.0-52.0) % MCV 91.6 (80.0-98.0) fL MCH 29.7 (27.0-33.0) pg MCHC 32.4 (31.0-36.0) g/dl RDW 12.8 (11.0-16.0) % Plt Count 211 (160-400) X10*3/uL MPV 11.1 (9.4-12.4) fL Immature Gran % (Auto) 0.4 (0.0-0.4) % Neut % (Auto) 42.7 L (45-73) % Lymph % (Auto) 31.2 (20-40) % [place] % (Auto) 9.2 (2-11) % Eos % (Auto) 16.0 H (0-4) % Baso % (Auto) 0.5 (0-2) % Lymph # (Auto) 2.3 (1.2-4.9) X10*3/uL [place] # (Auto) 0.7 (0.1-1.2) X10*3/uL Eos # (Auto) 1.2 H (0.0-0.4) X10*3/uL Baso # (Auto) 0.0 (0.0-0.2) X10*3/uL Abs Immat Gran (auto) 0.03 (0.00-0.03) X10*3/uL Absolute Neuts (auto) 3.2 (2.0-8.3) x10*3/uL Absolute Nucleated RBC 0.000 (0.0-0.012) X10*3/uL Nucleated RBC % (auto) 0.0 (0.0-0.2) /100WBC Sodium 142 (135-145) mmol/L Potassium 3.9 (3.3-5.1) mmol/L Chloride 109 H (96-108) mmol/L Carbon Dioxide 26 (22-29) mmol/L Anion Gap 11 L (12-20) BUN 22 H (9-16) mg/dL Creatinine 0.99 (0.5-1.4) mg/dL Estim Creat Clear Calc 107.1 Estimated GFR > 60 Random Glucose 89 (60-115) mg/dL Calcium 9.2 (8.4-10.2) mg/dL Total Bilirubin 0.4 (0.0-1.0) mg/dL AST 146 H (5-37) U/L ALT 62 H (0-40) U/L Alkaline Phosphatase 47 (39-117) U/L Troponin I High Sens < 2.7 (<3.5-35.0) ng/L Total Protein 6.9 (6.5-8.0) g/dL Albumin 4.2 (3.5-5.0) g/dL Independent Interpretation I performed an independent interpretation of an: EKG and Plain X-Ray Interpretation: My independent interpretation of the ECG reveals normal sinus bradycardia with a rate of 54, leftward axis, normal intervals, no ST elevations or depressions to suggest ischemic changes, no previous for comparison My independent interpretation of the chest x-ray reveals no consolidations, pulmonary edema, pleural effusion, pneumothorax, obvious bony abnormalities. Radiology Impression Discussion of test interpretation with radiology: I have reviewed the radiologist's reading. Independent Historian Clinical information obtained from an independent historian. History obtained from or confirmed by: Spouse External Record Review External record reviewed: Inpatient record and Outpatient record Prescription Management I considered prescription management with: Pain Medication Chronic Conditions Patient?s care impacted by: Other (Anxiety, asthma, obesity) Scores Heart Score History: -0- slightly suspicious ECG: -0- normal Age: -0- < or = 45 Risk factory: -1- 1 or 2 risk factors Troponin: -0- < or = normal limit Score: 1 Risk: 1.7% Discharge Plan Discharge Clinical Impression: Acute chest pain, Muscle strain of anterior chest wall Patient Disposition: Home, Self-Care Instructions: Noncardiac Chest Pain (ED) Additional Instructions: DIAGNOSIS & TREATMENT: You were seen in the Emergency Department for your chest discomfort. We performed an EKG, laboratory work and chest xray which did not reveal any acute abnormalities that would explain your symptoms. FURTHER CARE: We have not found any emergent physical exam or lab abnormalities that would require admission to the hospital today. Many people who come to the ER with chest discomfort do not leave with a specific diagnosis at the end of their visit. In the Emergency Department we try to make sure that there is no emergent problem that needs admission to the hospital or antibiotics right now. This does not mean that your evaluation is complete--please be sure to follow up with your regular doctor as additional testing as an outpatient may be indicated. Please be certain to drink plenty of fluids over the next several days. WHEN YOU SHOULD BE SEEN NEXT: Please follow-up with your primary care provider within the next 2-3 days for reevaluation of your symptoms. WHEN TO RETURN TO THE ED: Monitor your symptoms closely and return to the emergency department immediately for any new/worsening symptoms including: Worsening chest pain, difficulty breathing, fevers greater than 100 degrees, passing out, any new symptom that concerns you. Call 911 with any medical emergency. Prescriptions: New cyclobenzaprine 10 mg tablet 10 mg PO TID Qty: 10 0RF methylprednisolone [Medrol (Maxi)] 4 mg tablets,dose pack 4 mg PO DAILY Qty: 21 0RF No Action fluticasone propionate [Flonase Allergy Relief] 50 mcg/actuation spray,suspension 1 spray intranasal Q12H 30 Days Qty: 16 3RF Rx Instructions: administer into each nostril Zepbound 5 mg/0.5 mL pen injector 5 mg subcut QWEEK Qty: 2 0RF Zepbound 7.5 mg/0.5 mL pen injector 7.5 mg subcut QWEEK Qty: 2 0RF albuterol sulfate 90 mcg/actuation HFA aerosol inhaler 2 puff inhalation Q6H PRN (Reason: asthma) Qty: 6.7 2RF Zepbound 10 mg/0.5 mL pen injector 10 mg subcut QWEEK Qty: 2 0RF Zepbound 12.5 mg/0.5 mL pen injector 12.5 mg subcut QWEEK Qty: 2 0RF Zepbound 15 mg/0.5 mL pen injector 15 mg subcut QWEEK Qty: 2 0RF folic acid 1 mg Tablet 1 mg PO DAILY Qty: 90 1RF cyanocobalamin (vitamin B-12) [Vitamin B-12] 500 mcg Tablet 500 mcg PO DAILY Qty: 90 1RF Stand Alone Forms: Work/School Release Interventions: ED Discharge Assessment Last Done: 01/24/25 04:04 Discharge Date/Time: 01/24/25 04:05 Print Language: Canadian
[2025-01-24 01:43] VITALS: BP 100/65; PULSE 55; RESP 14; O2SAT 99
[2025-01-24 01:43] LABS: MANUAL DIFF FLAG NO
[2025-01-24 01:44] LABS: Hematocrit 41.7 % (42.0-52.0); Hemoglobin 13.5 g/dl (14.0-18.0); Imm Gran Abs Auto 0.03 X10*3/uL (0.00-0.03); Imm Gran Pct Auto 0.4 % (0.0-0.4); Lymphocytes Absolute Auto 2.3 X10*3/uL (1.2-4.9); Mean Corpuscular HGB Conc 32.4 g/dl (31.0-36.0); Mean Corpuscular Hemoglobin 29.7 pg (27.0-33.0); Mean Corpuscular Volume 91.6 fL (80.0-98.0); NRBC Abs Auto 0.000 X10*3/uL (0.0-0.012); NRBC Pct Auto 0.0 /100WBC (0.0-0.2); Platelet Count 211 X10*3/uL (160-400); Red Blood Count 4.55 X10*6/uL (4.60-5.80); White Blood Count 7.5 X10*3/uL (4.8-10.8)
[2025-01-24 02:15] LABS: Alanine Aminotransferase 62 U/L (0-40); Albumin Level 4.2 g/dL (3.5-5.0); Alkaline Phosphatase 47 U/L (39-117); Anion Gap 11 (12-20); Aspartate Amino Transferase 146 U/L (5-37); Blood Urea Nitrogen 22 mg/dL (9-16); Calcium 9.2 mg/dL (8.4-10.2); Carbon Dioxide 26 mmol/L (22-29); Chloride 109 mmol/L (96-108); Creatinine Clr Calc Pharmacy 107.1; Estimated Glomerular Filt Rate > 60; Potassium 3.9 mmol/L (3.3-5.1); Sodium 142 mmol/L (135-145); Total Protein 6.9 g/dL (6.5-8.0)
--- NOTE | 2025-01-24 03:02 | MHC.EDTECH ---
called lab at 258am regarding trop result, lab stated one analizer down and maintnance being run on the other, expecting at most 30 mins until result will be final. dr chino aware
--- NOTE | 2025-01-24 03:29 | MHC.EDTECH ---
This tech called lab, cooking appliance repair technician qasim responded 'The trop is running it has 7 Minutes RN Aware
[2025-01-24 03:36] LABS: Troponin-I High Sensitivity < 2.7 ng/L (<3.5-35.0)
[2025-01-24 03:43] VITALS: BP 99/70; PULSE 56; RESP 16; TEMP 36.9; O2SAT 100
[2025-01-24 04:04] VITALS: BP 103/65; PULSE 56; RESP 16; TEMP 36.9; O2SAT 100
== END 2025-01-24 04:05 | disposition home or self-care (01) ==
PROVIDERS: Emergency Provider Emergency Medicine; PCP Family Medicine
DX: R07.9 Chest pain, unspecified (principal); S29.011A Strain of muscle and tendon of front wall of thorax, initial encounter; X58.XXXA Exposure to other specified factors, initial encounter; Y93.9 Activity, unspecified; Y92.9 Unspecified place or not applicable; J45.909 Unspecified asthma, uncomplicated; R00.1 Bradycardia, unspecified
CPT/HCPCS: 36415; 71046; 80053; 84484; 85025; 93005; 99283; 99284; J8540

== ENCOUNTER → 2025-01-24 00:49 | Outpatient (BNV) | payer OTHER, SELFPAY | PROVIDERS: Emergency Provider Emergency Medicine; PCP Family Medicine; Visit Provider Internal Medicine Cardiovascular Disease | DX: R00.1 Bradycardia, unspecified (principal) | CPT/HCPCS: 93010 ==

== ENCOUNTER → 2025-01-24 02:11 | Outpatient (BNV) | payer OTHER, SELFPAY | PROVIDERS: Emergency Provider Emergency Medicine; PCP Family Medicine; Visit Provider Radiology Diagnostic Radiology | DX: R07.9 Chest pain, unspecified (principal) | CPT/HCPCS: 71046 ==

== ENCOUNTER 2025-02-07 09:41 | Outpatient (AMB) | payer OTHER, SELFPAY ==
--- NOTE | 2025-02-07 09:51 | A.OFFPC_ITS ---
Vital Signs 02/07/25 09:57 Height 5 ft 10 in Weight 202 lb BMI 29.0 BP 102/80 Blood Pressure Location Rt brachial Position Sitting Respiration 15 Pulse 62 Pulse Source Pulse Oximeter Temp 97.4 F Temp Source Temporal Artery Scan Pulse Oximetry (%) 98 Oxygen Delivery Method Room Air 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: ED F/U C due to experiencing chest pain Intake Note: Vineet presents in the office today for an ER Follow up due to chest pain. Machine Overhauler Required: Yes Machine Overhauler Name: Chang [email or web address] Information Interpreted: non-clinical & clinical Weigher And Grader: Not Required per policy Allergies aspirin Allergy (Mild, Verified 02/07/25 09:55) rash, swelling Medication List - Last Reconciled 02/07/25 by Jesus Mccord MD albuterol sulfate 90 mcg/actuation 2 puffs inhalation Q6H PRN cephalexin 500 mg PO Q12H 10 days cyanocobalamin (vitamin B-12) (Vitamin B-12) 500 mcg PO DAILY cyclobenzaprine 10 mg PO TID fluticasone propionate 50 mcg/actuation (Flonase Allergy Relief) 1 spray intranasal Q12H 30 days folic acid 1 mg PO DAILY valacyclovir 500 mg PO Q12H 14 days Tobacco use date assessed: 02/07/25 Dental Screening Dental Screen Date: 02/07/25 Did you have a dental visit in the last 12 months?: Yes Did you have a dental problem in the last 6 months where you did not have access to dental care?: No Was dental information given to patient?: Patient has dentist HPI ED F/U [facility] due to experiencing chest pain HPI Details 44 y./o male presents to f/u [facility] visit f or chest pain. Visit 01/24/25. Had presented with chest pain located in anterior chest wall. Work up including labs, EKG, chest x-ray had been fine. Denies any chest pain today. [facility] Medical History Overweight Back pain Obesity Pain of right great toe Asthma Vertigo Surgical History History of surgery of head History of testicular surgery Family History Father Heart disease No family history of mental disorder Mother Heart disease Diabetes Hypertension Seizures No family history of mental disorder Social History (Updated 02/07/25 @ 09:57 by Vianey Roland [facility]) Household Members: Spouse and Family Housing: Apartment Alcohol intake: current Alcohol intake frequency: holidays/special occasions only Alcohol type: beer Patient Tobacco Use Status: Never used Tobacco e-Cigarette/Vaping Use: Never Used Second Hand Smoke Exposure: No service: No Current occupational status: employed 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 1. Little interest or pleasure in doing things: not at all 2. Feeling down, depressed, or hopeless: not at all 3. Trouble falling or staying asleep, or sleeping too much: several days 4. Feeling tired or having little energy: several days 5. Poor appetite or overeating: not at all 6. Feeling bad about yourself - or that you are a failure or have let yourself or your family down: not at all 7. Trouble concentrating on things, such as reading the newspaper or watching television: not at all 8. Moving or speaking so slowly that other people could have noticed. Or the opposite - being so fidgety or restless that you have been moving around a lot more than usual: not at all 9. Thoughts that you would be better off or of hurting yourself in some way: not at all Total score: 2 Source: Developed by Drs. Norris Shah, Oksana Ventura, Anand Lakhani and colleagues, with an educational romario from [employer]. Thrive Questionnaire Date Thrive assessed: 01/13/24 I am a: Patient What is your living situation today?: I have a steady place to live Within the past 12 months, did the food you bought not last and you didn't have the money to get more?: I choose not to answer this question Within the past 12 months, did you worry whether your food would run out before you got money to buy more?: I choose not to answer this question Do you have trouble paying for medicines?: No Do you have trouble getting transportation to medical appointments?: No Do you have trouble paying your heating and electricity bill?: I choose not to answer this question Do you have trouble taking care of your child, family member or friend?: No Do you have trouble with day-to-day activities such as bathing, preparing meals, shopping, managing finances, etc.?: No Are you currently unemployed and looking for a job?: No Are you interested in more education?: No Please select the resources that you would like help with: None Currently or been in a relationship where the following occur: No concerns reported THRIVE Score: 0 AUDIT C Alcohol Use Questionnaire (AUDIT-C) 1. How often do you have a drink containing alcohol?: Never Total Score: 0 REJI-7 AMB Questionnaire REJI-7 Date REJI - 7 assessed: 11/04/23 Feeling nervous, anxious, or on edge: 0 = Not at all Not being able to stop or control worryin = Not at all Worrying too much about different things: 0 = Not at all Trouble relaxin = Not at all Being so restless that it is hard to sit still: 0 = Not at all Becoming easily annoyed or irritable: 1 = Several days Feeling afraid as if something awful might happen: 0 = Not at all Total REJI-7 score (0-4 normal; 5-9 mild; 10-14 moderate; 15-21 severe): 1 Source: Developed by Drs. Norris Shah, Oksana Ventura, Anand Lakhani and colleagues, with an educational romario from [employer]. Review of Systems Const Denies chills, Denies fatigue, Denies fever(s), Denies headache(s) and Denies weakness ENT Denies dizziness and Denies headache(s) Card Denies dyspnea Resp Denies cough, Denies dyspnea, Denies wheezing and Denies other (shortness of breath) Musc Denies numbness and Denies tingling Neuro Denies dizziness, Denies headache(s), Denies numbness, Denies tingling and Denies weakness Psych Denies anxiety and Denies depression Endo Denies fatigue Aller/Immun Denies wheezing Physical exam (Primary Care) Vital Signs: Last Vital Signs Temp 97.4 F 02/07/25 09:57 Pulse 62 02/07/25 09:57 Resp 15 02/07/25 09:57 BP 102/80 11/25/25 09:57 Pulse Ox 98 02/07/25 09:57 Oxygen Delivery Method Room Air 02/07/25 09:57 BMI result Body Mass Index 29.0 Tobacco/Smoking Status: Tobacco use Status Tobacco use date assessed 02/07/25 02/07/25 10:03 Patient Tobacco Use Status Never used Tobacco 02/07/25 09:57 e-Cigarette/Vaping Use Never Used 02/07/25 09:57 PHQ-9: PHQ-9 Score PHQ-9: Total score 2 02/07/25 10:29 Thrive Assessment: Date of Thrive Assessment Date Thrive assessed 01/13/24 02/07/25 09:54 Currently or been in a relationship where the following occur: No concerns reported Const General: well developed; No acute distress Nutritional Appearance: well nourished Orientation/consciousness: patient oriented x3 HENMT Head: Yes normocephalic and Yes atraumatic Eyes General: appearance normal, both eyes and all related structures Pupils: Equal, round and reactive pupils present EOM: EOMs intact bilaterally Resp Effort & Inspection: normal respiratory effort Neuro General: patient oriented x3 and gait normal Cranial nerves: Yes Equal, round and reactive pupils present Psych Affect: normal affect Coding Diagnoses Chest pain R07.9 Cold sore B00.1 Assessment & Plan Assessment & Plan (1) Chest pain: Code(s): R07.9 - Chest pain, unspecified Category: Medical Plan: Chest wall pain - Resolved (2) Cold sore: Code(s): B00.1 - Herpesviral vesicular dermatitis Category: Medical Plan: Vesicular outbreak on upper lip Sending script for valacyclovir Medications: New cephalexin 500 mg PO Q12H 20 caps 0RF 10 days valacyclovir 500 mg PO Q12H 28 tabs 0RF 14 days
[2025-02-07 09:57] VITALS: BP 102/80; PULSE 62; RESP 15; TEMP 36.3; O2SAT 98; BMI 29.0
--- OUTSIDE RECORDS SUMMARY | 2025-02-07 11:17 | XMS_ITS | Clinical Summary ---
Author Organization [facility] Address [address] [place] [address] Care Team Providers Care Recessing Machine Operator Name Role Phone Unavailable Primary Care [...] to complete this topic Insurance * Guarantor: [id number] STAFFING Account Type Relation to Patient Date of Phone Billing Address Worker's Comp [address] [place] [id number] [employer] . [address] [place] [id number]
--- OUTSIDE RECORDS SUMMARY | 2025-02-07 11:17 | XMS_ITS | Clinical Summary ---
Author Organization [address] Address [address] [place] [id number] Care Team Providers Care Oil Recovery Operator Name Role Phone Unavailable Primary Care [...]
--- OUTSIDE RECORDS SUMMARY | 2025-02-07 11:17 | XMS_ITS | Encounter Summary ---
Author Organization [facility] Address [address] [place] [id number] Phone Care Team Providers Care Risk Management Analyst Name Role Phone Pcp, Not Required Primary Care Provider Nataly Khan TIRE SHOP MECHANIC Unavailable Nataly Lara APRN Primary Care Provider [email or web address] Encounter Details Date Type Department Care Team (Late st Contact Info) Description 11/26/2015 Ancillary Orders [facility] - MRI, [facility] [address] [place] [address] Nataly Lara APRN [email or web address] Social History Tobacco Use Types Packs/Day [...] on filedocumented in this encounter Care Teams Risk Management Analyst Relationship Specialty Start Date End Date Pcp, Not Required [address] [place] [address] PCP - General 11/09/14 01/27/16 Nataly Lara APRN [email or web address] PCP - General Family Medicine 01/28/16 Nataly España NP [address] [place] [address] [email or web address] Internal Medicine 11/09/14 documented as of this encounter Additional Source Comments The information contained in this document represents components of the legal health record. It is not the complete legal health record.[facility]
--- OUTSIDE RECORDS SUMMARY | 2025-02-07 11:17 | XMS_ITS | Clinical Summary ---
Author Organization [facility] Address [address] [place] [phone] Phone Care Team Providers Care Leather Coater Name Role Phone Nataly España BODY TECHNICIAN Unavailable Nataly Lara APRN Primary Care Provider [email or web address] Allergies Active Allergy Reactions Criticality Noted Date [...] topic Medical Devices Not on file Insurance [facility] INS[facility] Care Teams Leather Coater Relationship Specialty Start Date End Date Nataly Lara APRN [email or web address] PCP - General Family Medicine 01/28/16 Nataly España NP [address] [place] [address] Internal Medicine 11/09/14 Additional Source Comments The information contained in this document represents components of the legal health record. It is not the complete legal health record.[facility]
--- OUTSIDE RECORDS SUMMARY | 2025-02-07 11:17 | XMS_ITS | Clinical Summary ---
Author Organization [facility] Address [address] [place] [address] Phone Care Team Providers Care Electrical Electronics Engineers Name Role Phone Physician, Pcp Unknown Primary [...] patient's age to complete this topic Insurance [facility] [employer] Care Teams Electrical Electronics Engineers Relationship Specialty Start Date End Date Physician, Pcp Unknown PCP - General 03/10/24
--- OUTSIDE RECORDS SUMMARY | 2025-02-07 11:17 | XMS_ITS | Encounter Summary ---
Author Organization [facility] Address [address] [place] [address] Care Team Providers Care Fire Manager Name Role Phone Unavailable Primary Care Provider Unavailabl e Encounter Details Date Type Department Care Team (Late st Contact Info) Description 08/04/2019 Lab Requisition [facility] [address] [place] [address] Cornel Snow MD [address] [place] [address] Encounter for screening for other [...] Date/Time Associated Diagnosis Comments SARS COV-2 (COVID-19) RNA-[facility] ([facility]) Routine 08/04/2019 7:14 PM EDT Encounter for screening for other viral diseases documented in this encounter Results * SARS CoV-2 (COVID-19) PCR - [facility] ([facility]) (08/04/2019 7:14 PM EDT) SARS-CoV-2 RNA (COVID-19) Not Detected Not Detected 08/05/2019 6:53 PM EDT [facility] Comment: Negative results do not preclude COVID-19 and should not be the sole basis for patient management decisions. Clinical disease and risk factors should also be considered. This real-time RT-PCR assay was developed by [employer] and targets three regions of the SARS-CoV-2 genome: orf1ab, spike (S) gene, nucleocapsid (N) gene. It has been validated for clinical use by the [facility]. TaqPath COVID-19 Combo Kit is [...] genome variability. Fact Sheet for Healthcare Providers: https://www.fda.gov/media/543914/download Fact Sheet for Patients: https://www.fda.gov/media/847180/download Test performance has not been evaluated in asymptomatic patients. Test ordering and result interpretation is at the discretion of the ordering provider. Viral NASOPHARYNGEAL STRUCTURE / Unknown 08/04/2019 7:14 PM EDT 08/04/2019 7:14 PM EDT Cornel Snow MD MICROBIOLOGY - GENERAL OR DERABLES Final Result [facility] [address] [place] [address], [facility] [phone] documented in this encounter Visit Diagnoses Diagnosis Encounter for screening for other viral diseases documented in this encounter Additional Health Concerns Infection Onset Date Last Indicated Resolved Time R/O COVID-19 08/04/2019 08/04/2019 08/05/2019 6:53 PM EDT documented as of this encounter
== END 2025-02-07 10:41 | disposition home or self-care (01) ==
LOC: HO.HMCFM 09:42
PROVIDERS: PCP Family Medicine; Visit Provider Family Medicine
DX: R07.9 Chest pain, unspecified (principal); B00.1 Herpesviral vesicular dermatitis